=== PATIENT | male | born 1955 | race Caucasian/White ===

== ENCOUNTER 2023-11-05 06:27 | Observation (INO) ==
--- NOTE | 2023-10-08 12:58 | PAT Medication Instructions ---
Medication Instructions Date of Service October 08, 2023 Home Medications atorvastatin 20 mg tablet 20 mg PO QPM blood sugar diagnostic (LookTracker Ultra Test strips) pen needle, diabetic 31 gauge x 5/16" (BD Ultra-Fine Short Pen Needle) aspirin 81 mg tablet,delayed release (Adult Low Dose Aspirin) 81 mg PO QAM carvedilol 25 mg tablet 25 mg PO BID losartan 50 mg tablet 100 mg PO QAM metformin 1,000 mg tablet 1,000 mg PO BID glucagon 1 mg/0.2 mL subcutaneous auto-injector 1 mg subcut UD PRN insulin glargine 100 unit/mL (3 mL) subcutaneous pen (Lantus Solostar U-100 Insulin) 30 unit subcut BID dapagliflozin propanediol 5 mg tablet (Farxiga) 5 mg PO QAM insulin aspart U-100 100 unit/mL (3 mL) subcutaneous pen (Novolog FlexPen U-100 Insulin aspart) 12 unit subcut TID spironolactone 50 mg tablet (Aldactone) 50 mg PO QAM Continue as directed glucagon 1 mg/0.2 mL subcutaneous auto-injector 1 mg subcut UD PRN (if needed) STOP taking 3 days before surgery dapagliflozin propanediol 5 mg tablet (Farxiga) 5 mg PO QAM DO NOT take the morning of surgery losartan 50 mg tablet 100 mg PO QAM metformin 1,000 mg tablet 1,000 mg PO BID insulin aspart U-100 100 unit/mL (3 mL) subcutaneous pen (Novolog FlexPen U-100 Insulin aspart) 12 unit subcut TID spironolactone 50 mg tablet (Aldactone) 50 mg PO QAM Take morning of surgery With a small sip of water, OTHERWISE NOTHING TO EAT OR DRINK AFTER MIDNIGHT: aspirin 81 mg tablet,delayed release (Adult Low Dose Aspirin) 81 mg PO QAM (unless surgeon directed otherwise) carvedilol 25 mg tablet 25 mg PO BID Take evening before surgery atorvastatin 20 mg tablet 20 mg PO QPM carvedilol 25 mg tablet 25 mg PO BID metformin 1,000 mg tablet 1,000 mg PO BID insulin glargine 100 unit/mL (3 mL) subcutaneous pen (Lantus Solostar U-100 Insulin) 30 unit subcut BID insulin aspart U-100 100 unit/mL (3 mL) subcutaneous pen (Novolog FlexPen U-100 Insulin aspart) 12 unit subcut TID Insulin Dependent Diabetic Patients * Test your blood sugar the morning of surgery * If Blood Sugar is GREATER THAN 150, take HALF of your regular dose of: insulin glargine 100 unit/mL (3 mL) subcutaneous pen (Lantus Solostar U-100 Insulin) (15 units) * If Blood Sugar is LESS THAN 150, DO NOT TAKE ANY: insulin glargine 100 unit/mL (3 mL) subcutaneous pen (Lantus Solostar U-100 Insulin) Other Notes If you have any questions please call us at [phone] or [phone] or [phone] or [phone]
--- NOTE | 2023-10-13 11:54 | Anesthesiology Consultation ---
Date of Service October 13, 2023 Assessment & Plan (1) Encounter for pre-operative examination: - awaiting cardiology clearance. - Case discussed in detail with Dr. Livingston who advised cardiology clearance is needed prior to surgery. Surgeon's office made aware. - check BSG am DOS. To anesthesiologist discretion if testing needs repeated DOS. - cardiology office visit 09/24/23: "...carotid artery stenosis-left CEA on 07/15/23...hypertension...well controlled...Cr 1.6, pt reports following with nephrology...abnormal EKG-ST-T wave changes suggestive of ischemia on EKG...normal stress testing 04/2023...Return in about 1 year..." - Outpatient joint assessment: Patient is currently scheduled for inpatient pathway. If re-evaluated and patient/surgeon requests outpatient pathway, patient is not recommended candidate for outpatient joint program from anes thesia standpoint. Chart Review Chart Review: Pending: Refer to Additional Notes / Consult section and Patient seen in Pre Admission Testing Teaching & Discussion Pre-Anesthesia Teaching/Discussion Notes: Instructed NPO after midnight before surgery, except medications with 15 cc of water. Medication instructions provided according to the PAT guidelines. History Surgery Operation Date: 11/05/23 08:10 Proposed Procedures p Right Total Knee Arthroplasty - Raul Aguirre DO Height/Weight Height: 5 ft 11 in Weight: 88.3 kg Allergies Allergy/AdvReac Type Severity Reaction Status Date / Time amoxicillin Allergy Unknown Vomiting Verified 10/01/23 10:22 clavulanic acid Allergy Unknown Vomiting Verified 10/01/23 10:22 [From Augmentin] Medications Home Medications Medication Instructions Recorded Confirmed Last Taken atorvastatin 20 mg tablet 20 mg PO QPM 03/03/23 10/01/23 Unknown blood sugar diagnostic (OneTouch 03/03/23 09/30/23 Unknown Ultra Test strips) pen needle, diabetic 31 gauge x 03/03/23 09/30/23 Unknown 5/16" (BD Ultra-Fine Short Pen Needle) aspirin 81 mg tablet,delayed 81 mg PO QAM 03/05/23 10/01/23 Unknown release (Adult Low Dose Aspirin) carvedilol 25 mg tablet 25 mg PO BID 03/05/23 10/01/23 Unknown losartan 50 mg tablet 100 mg PO QAM 03/05/23 10/01/23 Unknown metformin 1,000 mg tablet 1,000 mg PO BID 04/18/23 10/01/23 Unknown blood-glucose sensor (FreeStyle 05/13/23 09/30/23 Unknown Darnell 3 Sensor device) glucagon 1 mg/0.2 mL subcutaneous 1 mg subcut UD PRN prn 05/13/23 10/01/23 Unknown auto-injector insulin glargine 100 unit/mL (3 30 unit subcut BID 05/13/23 10/01/23 Unknown mL) subcutaneous pen (Lantus Solostar U-100 Insulin) dapagliflozin propanediol 5 mg 5 mg PO QAM 10/01/23 10/01/23 Unknown tablet (Farxiga) insulin aspart U-100 100 unit/mL 12 unit subcut TID 10/01/23 10/01/23 Unknown (3 mL) subcutaneous pen (Novolog FlexPen U-100 Insulin aspart) spironolactone 50 mg tablet 50 mg PO QAM 10/01/23 10/01/23 Unknown (Aldactone) Past Medical History Medical History Carotid artery stenosis left carotid endarterectomy 07/2023 Chronic kidney disease, stage 3b follows with Dr Delaney last visit 09/2023 Diabetes mellitus, type 2 IDDM History of kidney stones lithotripsy and passed on own Hx of gastric ulcer yrs ago Hypercholesteremia Hypertension controlled, stable per pt Patient denies h/o stroke, seizures, heart attack, heart failure, blood clots/DVTs or blood transfusions. Exercise / Class Metabolic Activity II 4-5 Yardwork/Stairs/Walk up hill (denies chest discomfort or shortness of breath with 1 FOS) Past Family History Family History Aunt Diabetes Uncle Diabetes Past Surgical History Surgical History History of cardiac cath [facility] many years ago, unsure of date, no stents History of carotid endarterectomy 07/2023, Lopez Yousif History of kidney surgery lithotripsy Past Anesthesia History No Hx of Anesthesia Complications and No Family Hx of Anesthesia Complications History of PONV No Hx of PONV and No Hx of Motion Sickness Social History Smoking Status: Never smoker Do You Dip or Chew Tobacco: No Hx Alcohol Use: No Hx Substance Use: No substance use type: does not use Review of Systems Snoring, denies witnessed apneas. Patient denies chest pain, shortness of breath, dyspnea on exertion, fever, chills, cough, wheezing, or palpitations. Physical Exam Vital Signs Vitals BP 158/81 P 80 TEMP 98.1 SP02 95% on RA RESP 18 Physical Patient resting comfortably in chair in no acute distress, alert and oriented, responding appropriately throughout visit Full cervical extension range of motion without pain TMD < 3 finger breadths Mallampati Score 3 Dentition: edentulous, full upper and lower dentures Lungs: normal respiratory effort. Good air movement, clear throughout to auscultation, no adventitious breath sounds Cardiac: regular rate and rhythm, no murmurs noted Carotid arteries: negative bruit bilat Lab Results Anesthesia Preop Results Results Anesthesia Widget: WBC 12.00 K/ul (4.8-10.8) H 10/13/23 Hgb 13.0 g/dl (14.0-18.0) L 10/13/23 Hct 39.4 % (42.0-52.0) L 10/13/23 Plt 305 K/uL (130-400) 10/13/23 Na 138 mmol/L (136-145) 10/13/23 K 5.2 mmol/L (3.5-5.1) H 10/13/23 Cl 109 mmol/L (98-107) H 10/13/23 CO2 24 mmol/L (21-32) 10/13/23 BUN 29 mg/dl (6-23) H 10/13/23 Creat 1.74 mg/dl (0.6-1.4) H 10/13/23 Glucose Level 117 mg/dl (70-99(Fasting)) H 10/13/23 PT 11.3 Seconds (9.0-12.0) 10/13/23 PTT 28 Seconds (21-31) 10/13/23 INR 1.0 (0.9-1.1) 10/13/23 HA1c 7.4 % (4.5-5.6) H 10/13/23 Urine Color Yellow 10/13/23 Urine Appearance Clear (Clear) 10/13/23 Urine pH 5.0 (4.5-7.5) 10/13/23 Urine Specific [place] 1.022 (1.000-1.030) 10/13/23 Urine Protein Trace (Negative) H 10/13/23 Urine Glucose (UA) 3+ (Negative) H 10/13/23 Urine Ketones Negative (Negative) 10/13/23 Urine Blood Negative (Negative) 10/13/23 Urine Nitrite Negative (Negative) 10/13/23 Urine Bilirubin Negative (Negative) 10/13/23 Urine Urobilinogen Negative (Negative) 10/13/23 Urine Leukocyte Esterase Negative (Negative) 10/13/23 Urine WBC (Auto) 1-5 /hpf (0-5) 10/13/23 Urine RBC (Auto) 10-30 /hpf (0-4) H 10/13/23 Urine Hyaline Casts (Auto) 1-5 /lpf (0-5) 10/13/23 Urine Epithelial Cells (Auto) 0-5 /lpf (0-5) 10/13/23 Urine Bacteria (Auto) Negative (Negative) 10/13/23 Blood Type A Positive 10/13/23 Antibody Screen NEGATIVE 10/13/23 Testing Electrocardiogram Date: 10/13/23 NSR, rate [address] & T wave abnormality, consider anterolateral ischemia Chest X-Ray Date: 10/13/23 Borderline cardiomegaly. Otherwise, no acute process within the chest. Echocardiogram Date: 03/26/23 EF 55-60% Borderline LVH Mild tricuspid regurgitation Grade I diastolic dysfunction Stress Test Date: 04/21/23 Pharmacologic MPHR 58% Non-diagnostic Low probability of CAD EF 71% Other Testing Carotid doppler 03/26/23 Mild right carotid disease with less than 50% stenosis in the proximal ICA Left carotid disease with greater than 70% stenosis in the proximal ICA s/p left CEA 07/2023
--- NOTE | 2023-10-20 10:00 | History & Physical Report ---
Date of Service October 20, 2023 date of surgery: 11/05/23 Procedure: Right Total Knee Arthroplasty Surgeon: Raul Aguirre, DO Assessment & Plan (1) Arthritis of right knee: Plan: Further care discussed with patient and at this point in time has failed conserv ative measures and would like to proceed with a Right total knee replacement. Plan on discharge will be home with home health physical therapy. DVT prophylaxiswith TEDs, SCDs and will also place on aspirin 81 mg p.o. b.i.d. for a month postop. Patient will have follow up appointment in our office two weeks post op for staple/suture removal and re-evaluation. Patient otherwise has no other questions or concerns. The risks and benefits have been discussed including, but not limited to, risk of infection, nerve injury, stiffness, loss of motion, failure to improve, etc. Reasonable outcomes and options of treatment were discussed. An explanation of appropriate alternatives to the procedure that may be advantageous were discussed and their risks and benefits, as well as the risks and benefits of not proceeding with treatment. I offered to answer any additional inquiries concerning the treatment involved. All the patient's questions were answered. The patient is agreeable, understanding of the treatment plan and alternatives, and wishes to proceed with the treatment plan. Please note the above document was generated using voice recognition software. It may contain grammatical, syntax or spelling errors. Any formal questions or concerns about the content, text or information contained within the body of this dictation should be directly addressed to the provider for clarification History of Present Illness Chief Complaint: Right knee pain Primary Care Provider: Elisabet Stevenson PA-C Brennan is a 67-year-old male who presented for preop evaluation prior to upcoming right total knee arthroplasty. Brennan has a longstanding history of right knee pain which is gradually worsened and is now affecting his daily activities including walking standing using stairs. He had a previous right knee arthrosc opy in 2019, since that time undergone cortisone injection as well as viscosupplementation with no improvement. He has tried oral anti-inflammatories and Tylenol. At this point time is failed conservative measures and wishes to proceed with a right total knee replacement Allergies Allergy/AdvReac Type Severity Reaction Status Date / Time amoxicillin Allergy Unknown Vomiting Verified 10/01/23 10:22 clavulanic acid Allergy Unknown Vomiting Verified 10/01/23 10:22 [From Augmentin] Home Medications Medication Instructions Recorded Confirmed Type atorvastatin 20 mg tablet 20 mg PO QPM 03/03/23 10/01/23 History blood sugar diagnostic (OneTouch 03/03/23 09/30/23 History Ultra Test strips) pen needle, diabetic 31 gauge x 03/03/23 09/30/23 History 5/16" (BD Ultra-Fine Short Pen Needle) aspirin 81 mg tablet,delayed 81 mg PO QAM 03/05/23 10/01/23 History release (Adult Low Dose Aspirin) carvedilol 25 mg tablet 25 mg PO BID 03/05/23 10/01/23 History losartan 50 mg tablet 100 mg PO QAM 03/05/23 10/01/23 History metformin 1,000 mg tablet 1,000 mg PO BID 04/18/23 10/01/23 History blood-glucose sensor (FreeStyle 05/13/23 09/30/23 History Darnell 3 Sensor device) glucagon 1 mg/0.2 mL subcutaneous 1 mg subcut UD PRN prn 05/13/23 10/01/23 History auto-injector insulin glargine 100 unit/mL (3 30 unit subcut BID 05/13/23 10/01/23 History mL) subcutaneous pen (Lantus Solostar U-100 Insulin) dapagliflozin propanediol 5 mg 5 mg PO QAM 10/01/23 10/01/23 History tablet (Farxiga) insulin aspart U-100 100 unit/mL 12 unit subcut TID 10/01/23 10/01/23 History (3 mL) subcutaneous pen (Novolog FlexPen U-100 Insulin aspart) spironolactone 50 mg tablet 50 mg PO QAM 10/01/23 10/01/23 History (Aldactone) Past Med/Surg History Medical History Carotid artery stenosis left carotid endarterectomy 07/2023 Chronic kidney disease, stage 3b follows with Dr Delaney last visit 09/2023 History of kidney stones lithotripsy and passed on own Hx of gastric ulcer yrs ago Diabetes mellitus, type 2 IDDM Hypercholesteremia Hypertension controlled, stable per pt Surgical History History of carotid endarte[facility] 07[facility]2023, [facility] of [facility], no stents History of kidney surgery lithotripsy Family History Aunt Diabetes Uncle Diabetes Social History Smoking Status: Never smoker Second Hand Exposure: No; Do You Dip or Chew Tobacco: No; Hx Alcohol Use: No Hx Substance Use: No Preferred Language: Japanese Reading Teacher Required: No Beliefs That Will Affect Care: None marital status: Current Living Situation: Spouse Feels Safe at Home: Yes Assistive Devices: Denture - Upper, Denture - Lower and Glasses Review of Systems Review of Systems: All systems reviewed & are unremarkable except as noted in HPI & below Constitutional: no fever, no chills and no sweats Respiratory: no cough and no dyspnea Cardiovascular: no chest pain, no dyspnea and no orthopnea Gastrointestinal: no abdominal pain, no nausea and no vomiting Musculoskeletal: as per Subjective / HPI Physical Exam Physical Exam: HT: 5ft 11in WT: 88.3kg Constitutional: WD/WN, vitals as above no acute distress Respiratory: normal respiratory effort, lungs clear to auscultation no respiratory distress, no labored breathing and does not use accessory muscles Cardiovascular: RRR, no murmur, no edema Gastrointestinal (Abdomen): normal bowel sounds, soft, nontender, no hepatosplenomegaly Musculoskeletal: Knee: + knee abnormal to inspection (Right Knee: ), + effusion (+1 effusion), + surgical incision (well healed portals), + limited ROM of knee (ROM 0/3/110), + knee ROM with crepitation, + joint line tenderness (medial joint line) and + Ashley's sign positive; no deformity, no skin erythema, no ecchymosis, no valgus laxity, no varus laxity, anterior drawer test negative, Zarina's sign negative and pivot shift test negative Results & Data Results & Data Diagnostic Findings Right Knee X-ray: Right knee series showing advanced degenerative changes to the right knee, narrowing of the medial compartment and patello-femoral joint with patellar spur ring noted, findings showing joint space narrowing of the medial compartment and patello-femoral joint, osteophyte formation and subchondral sclerosis noted. overall varus alignment. no acute bony pathology noted.
[2023-11-05] MEDS ORDERED: BUPIVACAINE 0.5 % 5 MG/1 ML PF 10ML VIAL ONE (06:30)
[2023-11-05] MEDS ORDERED: ROPIVACAINE 0.5% 5 MG/ML 30 ML VIAL ONE (06:30)
[2023-11-05] MEDS ORDERED: PROPOFOL IV EMULSION 10 MG/ML 20 ML VIAL IV ONE (06:42)
[2023-11-05] MEDS ORDERED: MIDAZOLAM HCL 1 MG/ML 2ML VIAL ONE (06:42)
[2023-11-05] MEDS ORDERED: ePHEDrine sulfate 50 MG/ML AMP IV PRN (07:03)
[2023-11-05] MEDS ORDERED: ATROPINE SULFATE 0.1 MG/ML 10ML SYR IV PRN (07:03)
[2023-11-05] MEDS ORDERED: ONDANSETRON INJ 2 MG/ML 2 ML VIAL IV PRN ×2 (07:03→11:27)
[2023-11-05] MEDS ORDERED: fentaNYL citrate PF 100 MCG/2 ML VIAL IV PRN (07:03)
[2023-11-05] MEDS ORDERED: HYDROmorphone INJ 1 MG/ML SYRINGE IV PRN ×2 (07:03→11:27)
--- NOTE | 2023-11-05 07:17 | History & Physical Bridge Note ---
Date of Service November 05, 2023 History & Physical Bridge Note I have examined the patient, reviewed the History & Physical and in the interval since the performance of the History & Physical I have noted the following changes of clinical significance: no changes noted
[2023-11-05] MEDS: LR 500ML BOLUS, THEN 15ML/HR IV SCH (07:30)
[2023-11-05] MEDS: GABAPENTIN 300 MG CAP PO SCH (07:30)
[2023-11-05] MEDS: METOCLOPRAMIDE HCL 10 MG TABLET PO SCH (07:31)
[2023-11-05] MEDS: ACETAMINOPHEN 500 MG TAB PO SCH ×2 (07:31→13:36)
[2023-11-05] MEDS: LR 60ML/HR IV SCH (07:31)
[2023-11-05] MEDS: FAMOTIDINE 20 MG TAB PO SCH (07:31)
[2023-11-05] MEDS: CeleBREX 200 MG CAP PO SCH (07:31)
[2023-11-05] MEDS: dexAMETHasone**PF** 10 MG/ML VIAL IV SCH (07:31)
[2023-11-05] MEDS: TRANEXAMIC ACID / 0.7% NACL 1000MG/100ML BAG IV ONE (07:32)
[2023-11-05] MEDS: TRANEXAMIC ACID 1,000 MG **IV Pre-op IV SCH (08:40)
[2023-11-05] MEDS ORDERED: fentaNYL citrate PF 100 MCG/2 ML VIAL ONE (08:57)
[2023-11-05] MEDS: ceFAZolin 2000MG 2,000 MG/15 ML SYR IV SCH (09:00)
[2023-11-05] MEDS: ROPIV 0.5% 246mg, Ketorolac 30mg, EPINEPHrine 0.5mg in NSS INFIL SCH (09:17)
[2023-11-05] MEDS: ORTHO JOINT ANESTHETIC ONE (09:17)
--- NOTE | 2023-11-05 09:58 | Operative Report ---
Post Operative Report Pre & Post Diagnosis Operation Date: 11/05/23 08:10 Pre-Op Diagnosis: Right Knee Osteoarthritis Post-Op Diagnosis: Right Knee Osteoarthritis I identified the patient and participated in the time-out.: Yes Procedure Operation Date: 11/05/23 08:10 Actual Procedures p Right Total Knee Arthroplasty(Right) Utilizing [employer] journey 2 patient-matched total knee arthroplasty size femur 4 tibia 4 poly 11 patella 32 charly- Raul Aguirre DO Surgeon Raul Aguirre DO [employer] MARTELL Estimated Blood Loss 5 Findings Consistent with Post-Op Diagnosis Patient presents with severe end-stage tricompartmental DJD of the right knee varus alignment subchondral so sclerosis eburnated [id number] nonresponsive to conversion to conservative management Specimens Bone and cartilage Drains Medium bore Hemovac Complications none Disposition Accompanied Patient To Recovery: No Disposition: Recovery Room Indications Patient presents with severe end-stage DJD having failed attempted conservative management occluding physical therapy anti-inflammatories relative rest activity modification corticosteroid injection viscosupplementation above intraoperative findings were noted Description of Procedure After proper prepping and draping of the Right lower extremity anterior midline incision was made over the region of the extensor extensor mechanism after meticulous hemostasis was obtained and maintained in subcutaneous tissues a medial parapatellar incision was made The patella was subluxed lateralward the medial lateral gutter were cleaned from any hypertrophic synovitis and scar tissue of the distal femoral block was placed and the distal femoral osteotomy cut was made subsequently the chamfers anterior and posterior osteotomy cuts were made utilizing the 4-in-1 block the tibia was subsequently subluxed anteriorward medial and ateral meniscal remnants were excised in their entirety remnants of the anterior and posterior cruciate ligaments were excised in their entirety excellent exposure of the proximal tibia was obtained the tibial osteotomy guide was placed on the proximal tibial osteotomy cut was made once again the knee was irrigated with copious amounts of sterile saline solution the patella was subsequently everted lateralward thickened scar tissue around the patella was removed the patella was subsequently cut utilizing a freehand technique and was drilled prepared for final preparation and placement of patella socially flexion-extension gaps were checked and the equal and symmetric trials were placed to the appropriate femoral and tibial trials with poly-spacer being placed for equal flexion and extension gaps and full range of motion including extension to 0 and flexion to 140 the trial components after having been taken to recovery range of motion was subsequently removed meticulous hemostasis was obtained and maintained subsequently a knee block injection of joint cocktail including ropivacaine 0.5% 150 mg. Bupivacaine 0.5% epinephrine 1-200,030 mL's toradol 30 mg dexamethasone 4 mg ketamine 10 mg clonidine 100 micrograms normal saline solution 30 mg was infiltrated into the soft tissues of the posterior knee medial lateral gutters and periosteal synovium special attention was paid to protect neurovascular structures at all times subsequently trial components having been removed the knee was irrigated with sterile saline solution. debris was removed the proximal tibia was subsequently prepared and was made ready for the placement of the tibial component tibial component was also cemented and tamped into position the femoral component was subsequently placed and cemented in the position the patellar component was subsequently cemented in position because hemostasis once again obtained and maintained wound having been thoroughly irrigated with debridement and debridement lavage was performed as well as a medial parapatellar incision closed with #1 Vicryl in interrupted fashion subcutaneous was closed with #2 Vicryl skin was closed with skin clips. PA-C was necessary for prepping and drapping as well as wound closure of deep fascia Sub cutaneous tissue and skin and was necessary for the case. A sterile compressive dressing was placed patient was taken to recovery in stable condition of report dictated by Timothy I attest to the content of the Intraoperative Record and any orders documented therein. Any exceptions are noted below.Due to the complex nature of the procedure, the entire surgery was performed with the operational assistance of JAYSHREE Nelson . The administrative support assistant, under direct supervision, was involved in the actual performance of all aspects of the surgical procedure including hemostasis, tissue retraction and incision, instrument management, patient positioning, and wound closure. I attest to the content of the Intraoperative Record and any orders documented therein. Any exceptions are noted below.
--- NOTE | 2023-11-05 10:58 | XRay Report ---
XR knee RT 1 or 2V routine HISTORY: 67 years-old Male Surgical Post Op right knee arthroplasty COMPARISON: None TECHNIQUE: 2 views of the right knee FINDINGS: Total joint arthroplasty with patellar resurfacing. Surgical drainage catheter in place. Expected pos toperative soft tissue swelling with deep tissue air. Arterial calcifications. No acute fracture or d islocation. IMPRESSION: Total joint arthroplasty with expected postoperative changes. ACT 112: Negative or not required by law. The above report was generated using voice recognition software. It may contain grammatical, syntax o r spelling errors. Electronically signed by: Logan Khan M.D. 11/05/2023 10:57 AM
[2023-11-05] MEDS ORDERED: PHARMACY GLYCEMIC MGMT CONSULT PRN (11:27)
[2023-11-05] MEDS ORDERED: METOCLOPRAMIDE HCL INJ 5 MG/ML 2 ML VIAL IV PRN (11:27)
[2023-11-05] MEDS ORDERED: bisacodyL 10 MG SUPP PR PRN (11:27)
[2023-11-05] MEDS ORDERED: NALOXONE HCL 0.4 MG/1 ML VIAL/CARP IV PRN (11:27)
[2023-11-05] MEDS ORDERED: MAGNESIUM HYDROXIDE SUSP 30 ML UDC PO PRN (11:27)
[2023-11-05] MEDS ORDERED: diphenhydrAMINE Capsule 25 MG CAP PO PRN (11:27)
[2023-11-05] MEDS: TRANEXAMIC ACID 1,000 MG **IV Intra-op IV SCH (11:35)
--- NOTE | 2023-11-05 11:53 | Hospitalist Consultation ---
Date of Consultation November 05, 2023 Assessment & Plan (1) Status post right knee replacement: VTE / Pain / bowel management per primary orthopedic team (2) History of carotid endarterectomy: s/p CEA [07/26/2023], restart aspirin when ok from orthopedics Continue atorvastatin (3) Chronic kidney disease, stage 3b: Follows with nephrology, hyperkalemia on post operative labs I do not see this being addressed therefore will repeat labs today to determine if spironolactone needs to be discontinued or any other active treatment is needed. (4) Hypertension: Continue carvedilol Continue losartan with hold parameters is sBP < 100 Repeat labs to determine need for continuing/holding spironolactone (5) Type 2 diabetes mellitus: HbA1C 7.4 [10/12], no need to repeat Pharmacy has been consulted by primary team for glycemic control, will follow Ok to continue Farxiga and metformin from medical perspective Notably taking Farxiga every other day due to cost - advised this will likely lead to fluctuant glucose levels and he should discuss more with his diabetes team (6) Hyperkalemia: Noted on outpatient labs pre-operatively with no adjustment in medications per patient. He did not take his spironolactone this morning. Repeat pending. History of Present Illness Reason for Consultation: post op management, h/o DM, CKD stage 3, HTN Attending Physician: Raul Aguirre, History of Present Illness Brennan Dwyer is a 67 year old male who presents POD#0 with a right total knee arthroplasty performed by Dr Aguirre earlier today. Estimated blood loss 5ml. No complications noted on operative report. He denies any current concerns or questions. Medications reviewed with the patient. He did not take spironolactone this morning as following pre-operative instructions but no changes made after recent potassium level was high on pre-operative labs on October 12. He also notes only taking Farxiga every other day due to expense. He is not yet dorsi/plantarflexing his ankles post operatively. Allergies Allergy/AdvReac Type Severity Reaction Status Date / Time amoxicillin Allergy Unknown Vomiting Verified 11/05/23 07:14 clavulanic acid Allergy Unknown Vomiting Verified 11/05/23 07:14 [From Augmentin] Home Medications Medication Instructions Recorded Confirmed Type atorvastatin 20 mg tablet 20 mg PO QPM 03/03/23 11/05/23 History blood sugar diagnostic (OneTouch 03/03/23 09/30/23 History Ultra Test strips) pen needle, diabetic 31 gauge x 03/03/23 09/30/23 History 5/16" (BD Ultra-Fine Short Pen Needle) aspirin 81 mg tablet,delayed 81 mg PO QAM 03/05/23 11/05/23 History release (Adult Low Dose Aspirin) carvedilol 25 mg tablet 25 mg PO BID 03/05/23 11/05/23 History losartan 50 mg tablet 100 mg PO QAM 03/05/23 11/05/23 History metformin 1,000 mg tablet 1,000 mg PO BID 04/18/23 11/05/23 History blood-glucose sensor (FreeStyle 05/13/23 09/30/23 History Darnell 3 Sensor device) glucagon 1 mg/0.2 mL subcutaneous 1 mg subcut UD PRN prn 05/13/23 11/05/23 History auto-injector insulin glargine 100 unit/mL (3 20 - 25 unit subcut BID 05/13/23 11/05/23 History mL) subcutaneous pen (Lantus Solostar U-100 Insulin) dapagliflozin propanediol 5 mg 5 mg PO QAM 10/01/23 11/05/23 History tablet (Farxiga) insulin aspart U-100 100 unit/mL 12 unit subcut TID 10/01/23 11/05/23 History (3 mL) subcutaneous pen (Novolog FlexPen U-100 Insulin aspart) spironolactone 50 mg tablet 50 mg PO QAM 10/01/23 11/05/23 History (Aldactone) Patient History Medical History (Updated 11/05/23 @ 11:41 by Pérez Obando MD) Carotid artery stenosis left carotid endarterectomy 07/2023 Chronic kidney disease, stage 3b follows with Dr Delaney last visit 09/2023 History of kidney stones lithotripsy and passed on own Hx of gastric ulcer yrs ago Diabetes mellitus, type 2 IDDM Hypercholesteremia Hypertension controlled, stable per pt Surgical History (Updated 11/05/23 @ 11:44 by Pérez Obando MD) History of carotid endarterectomy 07/2023, Lopez Yousif History of cardiac cath [facility] many years ago, unsure of date, no stents History of kidney surgery lithotripsy Family History Aunt Diabetes Uncle Diabetes Social History Smoking Status: Never smoker Second Hand Exposure: No; Do You Dip or Chew Tobacco: No; Tobacco Cessation Education Requested by Patient: No Hx Alcohol Use: No Hx Substance Use: No Preferred Language: British Tapper Balance Wheel Screw Hole Required: No Beliefs That Will Affect Care: None marital status: Current Living Situation: Spouse Other Information That Helps Us Care for You: No Feels Safe at Home: Yes Safety Concerns: Feels Safe At This Time Assistive Devices: Denture - Upper, Denture - Lower and Glasses Review of Systems Review of Systems: All systems reviewed & are unremarkable except as noted in HPI & below Physical Exam Constitutional: WD/WN, vitals as above Respiratory: normal respiratory effort, lungs clear to auscultation Cardiovascular: RRR, no murmur, no edema Gastrointestinal (Abdomen): normal bowel sounds, soft, nontender, no hepatosplenomegaly Neurologic: awake; + does not move all extremities (no ankle dorsi/plantarflexion b/l with normal foot sensation) and not confused Psychiatric: A+Ox3, euthymic affect Results & Data Results & Data Vital Signs (Past 12 Hours) Vital Signs Temp Pulse Pulse Resp BP Pulse Ox O2 Del Method 11/05/23 11:20 36.5 C 62 17 131/68 97 Room Air 11/05/23 11:05 36.4 C L 64 20 126/55 L 95 Room Air 11/05/23 10:55 64 20 127/57 L 97 Room Air 11/05/23 10:45 67 18 129/52 L 97 Oxymask 11/05/23 10:35 66 19 128/50 L 99 Oxymask 11/05/23 10:25 36.1 C L 75 20 100/40 L 92 Oxymask 11/05/23 07:01 36.9 C 73 18 155/84 H 98 Room Air O2 Flow Rate 11/05/23 11:20 11/05/23 11:05 11/05/23 10:55 11/05/23 10:45 2 11/05/23 10:35 4 11/05/23 10:25 6 11/05/23 07:01 PG Care Time/CCT Total # of Minutes Spent Total Time Spent with Patient: Total time spent is greater than 50% in coordination of care (as documented) at patient's floor/unit and/or counseling patient: Coding Level of Care Code 30947 IN/OBS CONSULT LVL 5,80M Diagnoses Status post right knee replacement Z96.651 History of carotid endarterectomy Z98.890 Chronic kidney disease, stage 3b N18.32 Hypertension I10 Type 2 diabetes mellitus E11.9 Hyperkalemia E87.5
[2023-11-05 11:57] LABS: Hematocrit (blood only) 36.3 % (42.0-52.0); Hemoglobin 12.4 g/dl (14.0-18.0); Mean Corpuscular Hemoglobin 32.1 pg (25.0-34.0); Mean Corpuscular Hgb Conc 34.2 g/dL (32.0-36.0); Mean Platelet Volume 10.3 fL (9.4-12.4); Platelet Count 291 K/uL (130-400); RDW Coefficient of Variation 13.2 % (11.5-14.5); RDW Standard Deviation 45.4 fL (36.4-46.3); Red Blood Count 3.86 M/uL (4.70-6.10)
[2023-11-05] MEDS ORDERED: GLUCOSE 10 TAB/TUBE PO PRN (12:00)
[2023-11-05] MEDS ORDERED: CARBOHYDRATES FOR HYPOGLYCEMIA PO PRN (12:00)
[2023-11-05] MEDS ORDERED: GLUCAGON FOR INJ 1 MG VIAL IM PRN (12:00)
[2023-11-05] MEDS ORDERED: DEXTROSE 50% 50 ML SYRINGE IV PRN (12:00)
[2023-11-05] MEDS ORDERED: GLUCOSE 40% GEL 15 GM TUBE PO PRN (12:00)
--- NOTE | 2023-11-05 12:10 | Pharmacy Report ---
Pharmacy Glycemic Short Note 2 - Date of Service November 05, 2023 - Glycemic Short BSG Results (Last 24 hours): 11/05/23 11/05/23 11/05/23 06:54 10:28 11:39 POC Glucose 170 H 197 H 237 H OUTPATIENT ANTIDIABETIC REGIMEN: * Lantus 25 units Qam and 20 units Qpm, novolog 16 units tidm, metformin 1 gm bid, farxiga 5 mg qam ASSESSMENT: * 67 year old now s/p surgery, POD 0 - pharmacy consulted to assist with glyce liana management. Postop BSGs > 200 - confirmed with RN that patient did not take any basal insulin yet this AM. Last dose of basal insulin was last evening (20 units). * Anticipate BSGs to continue to rise as steroids also given preoperative. K level came back elevated - provider ordering IV insulin for hyperkalemia/d50. Provider would like to hold all insulin for now. Will reassess at dinner, lázaro ent will need basal insulin ordered as none received yet today. PLAN FOR INPATIENT GLYCEMIC CONTROL: * Hold outpatient oral diabetes medications * Basal insulin * Lantus 35-45 units with dinner * Bolus insulin * NovoLog per scale ACHS or Q6hrs while NPO * Goal Range: Low 110 mg/dL - High 140 mg/dL * Correction Factor: 15 mg/dL/unit * Nutritional / Prandial insulin per carb ratio of 1 unit per 5 grams CHO consumed
[2023-11-05 12:20] LABS: Basophils # (auto) 0.03 K/uL (0.00-0.20); Basophils % (auto) 0.2 %; Eosinophils # (auto) 0.05 K/uL (0.00-0.50); Eosinophils % (auto) 0.3 %; Immature Granulocytes # (auto) 0.05 K/uL (0.01-0.20); Immature Granulocytes % (auto) 0.3 %; Lymphocytes # (auto) 0.61 K/uL (1.20-3.40); Lymphocytes % (auto) 3.8 %; Monocytes # (auto) 0.22 K/uL (0.11-0.59); Monocytes % (auto) 1.4 %; Neutrophils # (auto) 15.04 K/uL (1.40-6.50); Toxic Vacuolation 1+
[2023-11-05] MEDS: SODIUM CHLORIDE 0.9% 1,000 ML IV SCH (12:34)
[2023-11-05] MEDS: INSULIN ASPART PER UNIT CHARGE SC SCH (12:35)
[2023-11-05 12:39] LABS: BUN Creatinine Ratio 13.3 (10-20); Calcium 8.6 mg/dl (8.6-10.3); Creatinine Clr Calc Pharmacy 37.9 ml/min; Est GFR (African American) 39.3 ml/min; Est GFR (Non-African American) 33.9 ml/min; Potassium 6.9 mmol/L (3.5-5.1)
[2023-11-05] MEDS ORDERED: STAT IV/IM STA (12:40)
[2023-11-05] MEDS: CALCIUM GLUCONATE 10% 1,000 MG in SODIUM CHLOR 0.9% MINI-B 50 ML IV ONE (13:16)
[2023-11-05] MEDS: INSULIN HUMAN REGULAR PER UNIT 10 UNITS in SYRINGE 9.9 ML IV STA (13:27)
[2023-11-05] MEDS: DEXTROSE 50% 50 ML SYRINGE IV STA (13:27)
[2023-11-05] MEDS: LACTATED RINGER'S 1,000 ML IV SCH (14:49)
[2023-11-05] MEDS: SODIUM ZIRCONIUM CYCLOSILICATE 10 GM PACKET PO SCH (15:25)
[2023-11-05] MEDS: LANTUS PER UNIT CHARGE SQ STA (15:25)
[2023-11-05] MEDS: CLINDAMYCIN/D5W 600 MG/50 ML BAG IV SCH (15:25)
--- NOTE | 2023-11-05 16:03 | Anesthesiology Progress Note ---
Date of Service November 05, 2023 Anesthesia Post Procedure Vital Signs Vital Signs: Temp Pulse Pulse Resp BP Pulse Ox O2 Del Method 11/05/23 14:43 36.4 C L 73 19 165/77 H 97 Room Air 11/05/23 13:31 36.5 C 65 17 151/75 H 97 Room Air 11/05/23 12:20 36.5 C 66 16 165/75 H 98 Room Air 11/05/23 11:50 36.6 C 66 16 148/66 H 96 Room Air 11/05/23 11:20 36.5 C 62 17 131/68 97 Room Air 11/05/23 11:05 36.4 C L 64 20 126/55 L 95 Room Air 11/05/23 10:55 64 20 127/57 L 97 Room Air 11/05/23 10:45 67 18 129/52 L 97 Oxymask 11/05/23 10:35 66 19 128/50 L 99 Oxymask 11/05/23 10:25 36.1 C L 75 20 100/40 L 92 Oxymask 11/05/23 07:01 36.9 C 73 18 155/84 H 98 Room Air O2 Flow Rate 11/05/23 14:43 11/05/23 13:31 11/05/23 12:20 11/05/23 11:50 11/05/23 11:20 11/05/23 11:05 11/05/23 10:55 11/05/23 10:45 2 11/05/23 10:35 4 11/05/23 10:25 6 11/05/23 07:01 Transfer of Care Handoff Completed per policy Notes Mental Status: alert / awake / arousable and participated in evaluation Patient Amnestic to Procedure: Yes Nausea / Vomiting: adequately controlled Pain: adequately controlled Airway Patency, RR, SpO2: stable & adequate BP & HR: stable & adequate Hydration State: stable & adequate Neuraxial Anesthesia: was administered and sensory block is resolving Anesthetic Complications: no major complications apparent and Pt Satisfied with anesthetic care
[2023-11-05 16:45] LABS: BUN Creatinine Ratio 15.1 (10-20); Calcium 8.4 mg/dl (8.6-10.3); Creatinine Clr Calc Pharmacy 34.1 ml/min; Est GFR (African American) 34.5 ml/min; Est GFR (Non-African American) 29.8 ml/min; Magnesium 1.6 mg/dl (1.7-2.4); Potassium 6.5 mmol/L (3.5-5.1)
[2023-11-05] MEDS: oxyCODONE HCL IR 5 MG TAB (IMMEDIATE RELEASE) PO PRN (16:48)
[2023-11-05] MEDS: carvediloL 25 MG TAB PO SCH (16:53)
[2023-11-05] MEDS: INSULIN HUMAN REGULAR PER UNIT 10 UNITS in SYRINGE 9.9 ML IV ONE (17:34)
[2023-11-05 20:28] LABS: BUN Creatinine Ratio 15.3 (10-20); Calcium 8.8 mg/dl (8.6-10.3); Creatinine Clr Calc Pharmacy 32.4 ml/min; Est GFR (African American) 32.5 ml/min; Est GFR (Non-African American) 28.1 ml/min; Potassium 5.9 mmol/L (3.5-5.1)
[2023-11-05] MEDS: LACTATED RINGER'S 1,000 ML IV ONE (21:09)
[2023-11-05] MEDS: SENNA 8.6 MG TAB PO SCH (21:11)
[2023-11-05] MEDS: ASPIRIN 81 MG ECTAB PO SCH (21:11)
[2023-11-05] MEDS: ATORVASTATIN 20 MG TAB PO SCH (21:11)
[2023-11-05] MEDS: DOCUSATE SODIUM 100 MG CAP PO SCH (21:12)
[2023-11-05] MEDS: LANTUS PER UNIT CHARGE SQ ONE (21:21)
[2023-11-05 23:55] LABS: Appearance Urine Clear (Clear); Bilirubin Urine Negative (Negative); Blood Urine Negative (Negative); Color Urine Yellow; Glucose Urine UA 3+ (Negative); Ketones Urine Negative (Negative); Leukocyte Esterase Urine Negative (Negative); Nitrite Urine Negative (Negative); Protein Urine Negative (Negative); Specific Gravity Urine 1.021 (1.000-1.030); Urobilinogen Urine Negative (Negative)
[2023-11-06] MEDS: INSULIN ASPART PER UNIT CHARGE SC SCH (00:02)
[2023-11-06 00:52] LABS: BUN Creatinine Ratio 16.6 (10-20); Calcium 8.2 mg/dl (8.6-10.3); Creatinine Clr Calc Pharmacy 34.2 ml/min; Est GFR (African American) 34.7 ml/min; Potassium 5.6 mmol/L (3.5-5.1)
[2023-11-06 05:04] LABS: BUN Creatinine Ratio 18.2 (10-20); Calcium 8.3 mg/dl (8.6-10.3); Creatinine Clr Calc Pharmacy 34.7 ml/min; Est GFR (African American) 35.3 ml/min; Est GFR (Non-African American) 30.5 ml/min; Potassium 5.4 mmol/L (3.5-5.1)
[2023-11-06 05:21] LABS: Hematocrit (blood only) 35.4 % (42.0-52.0); Hemoglobin 11.7 g/dl (14.0-18.0); Mean Corpuscular Hemoglobin 31.5 pg (25.0-34.0); Mean Corpuscular Hgb Conc 33.1 g/dL (32.0-36.0); Mean Corpuscular Volume 95.2 fL (80.0-100.0); Platelet Count 277 K/uL (130-400); RDW Coefficient of Variation 13.1 % (11.5-14.5); RDW Standard Deviation 45.1 fL (36.4-46.3); Red Blood Count 3.72 M/uL (4.70-6.10); White Blood Count 29.07 K/ul (4.8-10.8)
--- NOTE | 2023-11-06 07:05 | Orthopedic Progress Note ---
Date of Service November 06, 2023 Assessment & Plan (1) Status post right knee replacement: Plan: POD #1 s/p Right TKA pt/ot dvt proph with MICHOACANO/SCD/ASA Hyperkalemia- am labs showing 5.4, has continued to improve since post op labs yesterday afternoon. will await medical input for further treatment. we will have him do PT this am and see how he performs and will make determination for timing of discharge after evaluation by medical team. (2) Hyperkalemia: (3) Chronic kidney disease, stage 3b: (4) Hypertension: (5) Type 2 diabetes mellitus: Admission and Anticipated Discharge Date Admission Date: November 05, 2023 Subjective POD #1 s/p Right TKA patient seen in PCU due to elevated potassium, this has continued to improve over the last 16 hours Review of Systems Constitutional: no fever, no chills and no sweats Respiratory: no cough and no dyspnea Cardiovascular: no chest pain and no dyspnea Gastrointestinal: no abdominal pain, no nausea and no vomiting Physical Exam Physical Exam: Vital Signs Temp 36.7 C 11/06/23 03:52 Pulse 69 11/06/23 03:52 Resp 17 11/06/23 03:52 BP 153/73 H 11/06/23 03:52 Pulse Ox 97 11/06/23 03:52 O2 Del Method Room Air 11/06/23 03:52 O2 Flow Rate 2 11/05/23 10:45 Intake & Output 11/05/23 11/06/23 11/06/23 18:59 06:59 18:59 Intake Total 1490 / 3866.666 2376.666 / 3866.66 6 Output Total 45 / 605 560 / 605 Balance 1445 / 3261.666 1816.666 / 3261.66 6 Weight 88.3 kg Intake: IV 290 / 2116.666 1826.666 / 2116.66 6 Calcium Glucon ate 10% 1,000 mg 60 / 60 In Sodium Chlo r 0.9% Mini-B 50 ml @ 240 mls/h r IV NOW ONE Rx#: [id number] Clindamycin/D5 w 600 mg In 50 ml 50 / 100 50 / 100 @ 100 mls/hr I V Q8H [facility] Rx#: [id number] Lactated Ringe r's 1,000 ml @ 0 / 5674.834 3563.666 / 1776.66 6 100 mls/hr IV .Q10H [facility] Rx#: [id number] Sodium Chlorid e 0.9% 1,000 ml @ 80 / 80 100 mls/hr IV .Q10H [facility] Rx#: [id number] Tranexamic Aci d / 0.7% NaCl 1, 100 / 100 000 mg In 100 ml @ 600 mls/hr IV TODAY@0600 [facility] Rx#:[id number] IV Perioperative 1000 / 1000 Oral 200 / 750 550 / 750 Output: Urine 410 / 410 Estimated Blood Loss 5 / 5 Drain Output 40 / 190 150 / 190 Right Knee Hem ovac 40 / 190 150 / 190 Other: Weight Measureme nt Method Standing Scale Musculoskeletal: Right Leg: NVDI, calf SNT, negative merrick sign. DP palpable, able to wiggle toes/ankle movement without difficulty. dressing clean dry and intact. Results & Data Vital Signs (Past 12 Hours) Vital Signs Temp Pulse Pulse Resp BP Pulse Ox O2 Del Method 11/06/23 03:52 36.7 C 69 17 153/73 H 97 Room Air 11/06/23 00:00 62 11/05/23 23:22 36.5 C 65 18 140/65 96 Room Air 11/05/23 19:19 36.6 C 55 L 17 151/74 H 97 Room Air Laboratory Results Laboratory Results WBC 29.07 K/ul (4.8-10.8) H D 11/06/23 04:14 RBC 3.72 M/uL (4.70-6.10) L 11/06/23 04:14 Hgb 11.7 g/dl (14.0-18.0) L 11/06/23 04:14 Hct 35.4 % (42.0-52.0) L 11/06/23 04:14 MCV 95.2 fL (80.0-100.0) 11/06/23 04:14 MCH 31.5 pg (25.0-34.0) 11/06/23 04:14 MCHC 33.1 g/dL (32.0-36.0) 11/06/23 04:14 RDW Std Deviation 45.1 fL (36.4-46.3) 11/06/23 04:14 RDW Coeff of Flavia 13.1 % (11.5-14.5) 11/06/23 04:14 Plt Count 277 K/uL (130-400) 11/06/23 04:14 MPV 11.0 fL (9.4-12.4) 11/06/23 04:14 Immature Gran % (Auto) 0.3 % 11/05/23 11:43 Neut % (Auto) 94.0 % 11/05/23 11:43 Lymph % (Auto) 3.8 % 11/05/23 11:43 Waldo % (Auto) 1.4 % 11/05/23 11:43 Eos % (Auto) 0.3 % 11/05/23 11:43 Baso % (Auto) 0.2 % 11/05/23 11:43 Neut # (Auto) 15.04 K/uL (1.40-6.50) H 11/05/23 11:43 Lymph # (Auto) 0.61 K/uL (1.20-3.40) L 11/05/23 11:43 Waldo # (Auto) 0.22 K/uL (0.11-0.59) 11/05/23 11:43 Eos # (Auto) 0.05 K/uL (0.00-0.50) 11/05/23 11:43 Baso # (Auto) 0.03 K/uL (0.00-0.20) 11/05/23 11:43 Immature Gran # (Auto) 0.05 K/uL (0.01-0.20) 11/05/23 11:43 Toxic Vacuolation 1+ 11/05/23 11:43 Sodium 132 mmol/L (136-145) L 11/06/23 04:14 Potassium 5.4 mmol/L (3.5-5.1) H 11/06/23 04:14 Chloride 106 mmol/L (98-107) 11/06/23 04:14 Carbon Dioxide 20 mmol/L (21-32) L 11/06/23 04:14 Anion Gap 6 (3-11) 11/06/23 04:14 BUN 39 mg/dl (6-23) H 11/06/23 04:14 Creatinine 2.14 mg/dl (0.6-1.4) H 11/06/23 04:14 Est Cr Clr Drug Dosing 34.7 ml/min 11/06/23 04:14 Est GFR ( Amer) 35.3 ml/min 11/06/23 04:14 Est GFR (Non-Af Amer) 30.5 ml/min 11/06/23 04:14 BUN/Creatinine Ratio 18.2 (10-20) 11/06/23 04:14 Glucose 248 mg/dl (70-99(Fasting)) H 11/06/23 04:14 POC Glucose 256 mg/dl (70-99) H 11/06/23 03:56 Calcium 8.3 mg/dl (8.6-10.3) L 11/06/23 04:14 Magnesium 1.6 mg/dl (1.7-2.4) L 11/05/23 15:41 Urine Color Yellow 11/05/23 23:45 Urine Appearance Clear (Clear) 11/05/23 23:45 Urine pH 5.0 (4.5-7.5) 11/05/23 23:45 Ur Specific [place] 1.021 (1.000-1.030) 11/05/23 23:45 Urine Protein Negative (Negative) 11/05/23 23:45 Urine Glucose (UA) 3+ (Negative) H 11/05/23 23:45 Urine Ketones Negative (Negative) 11/05/23 23:45 Urine Blood Negative (Negative) 11/05/23 23:45 Urine Nitrite Negative (Negative) 11/05/23 23:45 Urine Bilirubin Negative (Negative) 11/05/23 23:45 Urine Urobilinogen Negative (Negative) 11/05/23 23:45 Ur Leukocyte Esterase Negative (Negative) 11/05/23 23:45 Impressions Knee X-Ray 11/05/23 09:20 XR knee RT 1 or 2V routine HISTORY: 67 years-old Male Surgical Post Op right knee arthroplasty COMPARISON: None TECHNIQUE: 2 views of the right knee FINDINGS: Total joint arthroplasty with patellar resurfacing. Surgical drainage catheter in place. Expected postoperative soft tissue swelling with deep tissue air. Arterial calcifications. No acute fracture or dislocation. IMPRESSION: Total joint arthroplasty with expected postoperative changes. ACT 112: Negative or not required by law. The above report was generated using voice recognition software. It may contain grammatical, syntax or spelling errors. Electronically signed by: Logan Khan M.D. 11/05/2023 10:57 AM
[2023-11-06] MEDS ORDERED: NON-FORMULARY MEDICATION (Dapagliflozin Propanediol [Farxiga] 5 mg tablet) PO SCH (09:00)
[2023-11-06] MEDS ORDERED: LOSARTAN POTASSIUM 50 MG TAB PO SCH (09:00)
[2023-11-06] MEDS: LANTUS PER UNIT CHARGE SQ SCH (09:06)
[2023-11-06] MEDS: MULTIVITAMIN TAB PO SCH (10:52)
--- NOTE | 2023-11-06 11:21 | Nephrology Consultation ---
Date of Consultation November 06, 2023 Assessment & Plan (1) Acute kidney injury: * LANRE likely related to hemodynamic changes in the setting of NSAID and ARB therapy * Ketorolac and Losartan have been stopped * Patient is nonoliguric. Urine sediment is negative for cellular casts * Continue supportive care. Monitor PRP (2) Chronic kidney disease, stage 3b: * CKD stage G3b/A2 (moderate impairment). Baseline Cr 1.6-1.9 w/ EGFR 30 cc/min. Outpatient evaluation revealed acellular urine sediment, UPCR 0.2, 05/26 renal US - R 10.7cm, L 12cm. Moderate cortical thinning bilaterally w/ increased cortical echogenicity. Renal impairment attributed to DKD, hypertensive nephrosclerosis and microvascular disease (3) Hypertension: * BP above goal * Continue Carvedilol therpy * Will add Amlodipine 2.5 mg daily (4) Hyperkalemia: * Hold Losartan and Spironolactone * Agree w/ Lokelma therapy * Will add low K restriction to diet order * Mild metabolic acidosis due to LANRE. If this worsens, may add NaHCO3 (5) Diabetes mellitus: * Intolerant of Jardiance, could not afford Farxiga History of Present Illness Reason for Consultation: LANRE/CKD Attending Physician: Raul Aguirre DO History of Present Illness Mr. Dwyer is a 67 year old white male who is seen at the request of the [facility] Hospitalist Service for evaluation of LANRE/CKD. Information for the HPI is obtained from direct patient interview and review of the EMR. HPI is summarized as follows: Mr. Dwyer Following surgery has CKD stage G3b/A2 (moderate impairment). Baseline Cr has been 1.6-1.9 w/ EGFR 30 cc/min. Primary Net Trainer is Dr. Delaney. Outpatient evaluation has revealed acellular urine sediment, UPCR 0.2, 05/26 renal US - R 10.7cm, L 12cm. Moderate cortical thinning bilaterally w/ increased cortical echogenicity. Renal impairment has been attributed to DKD, hypertensive nephrosclerosis and microvascular disease. His medical history is also significant for AODM, HTN, hypercholesterolemia, PVD s/p L CEA, and h/o gastric ulcer. His medical regimen has included Losartan and Spironolactone. SGLT2i therapy was attempted but patient was intolerant of Jardiance and could not afford Farxiga. On 11/05/23 Mr. Dwyer underwent R TKA. He received Ketorolac 200 mg po prior to surgery and as part of periarticular infiltration. Losartan and Spironolactone were continued. Post-op Cr increased to 2.29 and patient developed hyperkalemia (K 6.9) requiring medical management. Losartan and Spironolactone have been held. Patient is scheduled to receive Lokelma. Potassium has improved to 5.4. Allergies Allergy/AdvReac Type Severity Reaction Status Date / Time amoxicillin Allergy Unknown Vomiting Verified 11/05/23 07:14 clavulanic acid Allergy Unknown Vomiting Verified 11/05/23 07:14 [From Augmentin] Home Medications Medication Instructions Recorded Confirmed Type atorvastatin 20 mg tablet 20 mg PO QPM 03/03/23 11/05/23 History blood sugar diagnostic (OneTouch 03/03/23 09/30/23 History Ultra Test strips) pen needle, diabetic 31 gauge x 03/03/23 09/30/23 History 5/16" (BD Ultra-Fine Short Pen Needle) aspirin 81 mg tablet,delayed 81 mg PO QAM 03/05/23 11/05/23 History release (Adult Low Dose Aspirin) carvedilol 25 mg tablet 25 mg PO BID 03/05/23 11/05/23 History losartan 50 mg tablet 100 mg PO QAM 03/05/23 11/05/23 History metformin 1,000 mg tablet 1,000 mg PO BID 04/18/23 11/05/23 History blood-glucose sensor (FreeStyle 05/13/23 09/30/23 History Darnell 3 Sensor device) glucagon 1 mg/0.2 mL subcutaneous 1 mg subcut UD PRN prn 05/13/23 11/05/23 History auto-injector insulin glargine 100 unit/mL (3 20 - 25 unit subcut BID 05/13/23 11/05/23 Hist ory mL) subcutaneous pen (Lantus Solostar U-100 Insulin) dapagliflozin propanediol 5 mg 5 mg PO QAM 10/01/23 11/05/23 History tablet (Farxiga) insulin aspart U-100 100 unit/mL 12 unit subcut TID 10/01/23 11/05/23 History (3 mL) subcutaneous pen (Novolog FlexPen U-100 Insulin aspart) spironolactone 50 mg tablet 50 mg PO QAM 10/01/23 11/05/23 History (Aldactone) acetaminophen 500 mg tablet 1,000 mg (2 x 500 mg) PO Q8 pain 11/05/23 Rx 21 days #126 tabs aspirin 81 mg tablet,delayed 81 mg PO BID 30 days #60 tabs 11/05/23 Rx release clindamycin HCl 300 mg capsule 300 mg PO TID 7 days #21 caps 11/05/23 Rx docusate sodium 100 mg capsule 100 mg PO BID #20 caps 11/05/23 Rx oxycodone 5 mg tablet 5 - 10 mg (1 - 2 x 5 mg) PO Q6H 11/05/23 Rx PRN pain #30 tabs Patient History Medical History Carotid artery stenosis left carotid endarterectomy 07/2023 Chronic kidney disease, stage 3b follows with Dr Delaney last visit 09/2023 History of kidney stones lithotripsy and passed on own Hx of gastric ulcer yrs ago Diabetes mellitus, type 2 IDDM Hypercholesteremia Hypertension controlled, stable per pt Surgical History History of carotid endarterectomy 07/2023, Lopez Yousif History of cardiac cath [facility] many years ago, unsure of date, no stents History of kidney surgery lithotripsy Family History Aunt Diabetes Uncle Diabetes Social History Smoking Status: Never smoker Second Hand Exposure: No; Do You Dip or Chew Tobacco: No; Hx Alcohol Use: No Hx Substance Use: No Preferred Language: Ken[place] Management Development Specialist Required: No Beliefs That Will Affect Care: None marital status: Current Living Situation: Spouse Feels Safe at Home: Yes Assistive Devices: Denture - Upper, Denture - Lower and Glasses Review of Systems Constitutional: no fever Eyes: no problem reported Ear, Nose, Mouth, Throat: no problem reported Respiratory: no cough and no dyspnea Cardiovascular: no chest pain Gastrointestinal: no abdominal pain, no nausea, no vomiting and no diarrhea/loose stools Genitourinary: no dysuria or no hematuria Integumentary: no rash Neurologic: no confusion Physical Exam Constitutional: not in distress Eyes: PERRL, conjunctivae normal, anicteric sclerae ENMT: external ear and nose normal, oropharynx normal Neck: trachea midline, no thyromegaly Respiratory: normal respiratory effort, lungs clear to auscultation Cardiovascular: RRR, no murmur, no edema Gastrointestinal (Abdomen): normal bowel sounds, soft, nontender, no hepatosplenomegaly Musculoskeletal: R knee wrapped w/ drain in place Skin: no rashes, warm and dry Neurologic: Speech / Cognition: normal speech and normal cognition Results & Data Vital Signs (Past 12 Hours) Vital Signs Temp Pulse Pulse Resp BP Pulse Ox O2 Del Method 11/06/23 08:32 Room Air 11/06/23 08:00 70 11/06/23 07:40 36.7 C 70 18 166/73 H 97 Room Air 11/06/23 03:52 36.7 C 69 17 153/73 H 97 Room Air 11/06/23 00:00 62 11/05/23 23:22 36.5 C 65 18 140/65 96 Room Air Laboratory Results Laboratory Results - last 24 hr 11/05/23 11/05/23 11/05/23 11:39 11:43 15:41 WBC 16.00 H RBC 3.86 L Hgb 12.4 L Hct 36.3 L MCV 94.0 MCH 32.1 MCHC 34.2 RDW Std Deviation 45.4 RDW Coeff of Flavia 13.2 Plt Count 291 MPV 10.3 Immature Gran % (Auto) 0.3 Neut % (Auto) 94.0 Lymph % (Auto) 3.8 Early % (Auto) 1.4 Eos % (Auto) 0.3 Baso % (Auto) 0.2 Neut # (Auto) 15.04 H Lymph # (Auto) 0.61 L Early # (Auto) 0.22 Eos # (Auto) 0.05 Baso # (Auto) 0.03 Immature Gran # (Auto) 0.05 Toxic Vacuolation 1+ Sodium 132 L 130 L Potassium 6.9 H* 6.5 H* Chloride 106 104 Carbon Dioxide 23 21 Anion Gap 3 5 BUN 26 H 33 H Creatinine 1.96 H 2.18 H Est Cr Clr Drug Dosing 37.9 34.1 Est GFR ( Amer) 39.3 34.5 Est GFR (Non-Af Amer) 33.9 29.8 BUN/Creatinine Ratio 13.3 15.1 Glucose 243 H 413 H* POC Glucose 237 H Calcium 8.6 8.4 L Magnesium 1.6 L Urine Color Urine Appearance Urine pH Ur Specific [place] Urine Protein Urine Glucose (UA) Urine Ketones Urine Blood Urine Nitrite Urine Bilirubin Urine Urobilinogen Ur Leukocyte Esterase 11/05/23 11/05/23 11/05/23 16:19 16:21 18:47 WBC RBC Hgb Hct MCV MCH MCHC RDW Std Deviation RDW Coeff of Flavia Plt Count MPV Immature Gran % (Auto) Neut % (Auto) Lymph % (Auto) Early % (Auto) Eos % (Auto) Baso % (Auto) Neut # (Auto) Lymph # (Auto) Early # (Auto) Eos # (Auto) Baso # (Auto) Immature Gran # (Auto) Toxic Vacuolation Sodium Potassium Chloride Carbon Dioxide Anion Gap BUN Creatinine Est Cr Clr Drug Dosing Est GFR ( Amer) Est GFR (Non-Af Amer) BUN/Creatinine Ratio Glucose POC Glucose 384 H* 359 H* 286 H Calcium Magnesium Urine Color Urine Appearance Urine pH Ur Specific [place] Urine Protein Urine Glucose (UA) Urine Ketones Urine Blood Urine Nitrite Urine Bilirubin Urine Urobilinogen Ur Leukocyte Esterase 11/05/23 11/05/23 11/05/23 19:47 20:37 23:45 WBC RBC Hgb Hct MCV MCH MCHC RDW Std Deviation RDW Coeff of Flavia Plt Count MPV Immature Gran % (Auto) Neut % (Auto) Lymph % (Auto) Early % (Auto) Eos % (Auto) Baso % (Auto) Neut # (Auto) Lymph # (Auto) Early # (Auto) Eos # (Auto) Baso # (Auto) Immature Gran # (Auto) Toxic Vacuolation Sodium 131 L Potassium 5.9 H Chloride 104 Carbon Dioxide 21 Anion Gap 6 BUN 35 H Creatinine 2.29 H Est Cr Clr Drug Dosing 32.4 Est GFR ( Amer) 32.5 Est GFR (Non-Af Amer) 28.1 BUN/Creatinine Ratio 15.3 Glucose 273 H POC Glucose 246 H Calcium 8.8 Magnesium Urine Color Yellow Urine Appearance Clear Urine pH 5.0 Ur Specific [place] 1.021 Urine Protein Negative Urine Glucose (UA) 3+ H Urine Ketones Negative Urine Blood Negative Urine Nitrite Negative Urine Bilirubin Negative Urine Urobilinogen Negative Ur Leukocyte Esterase Negative 11/05/23 11/06/23 11/06/23 23:52 00:23 03:56 WBC RBC Hgb Hct MCV MCH MCHC RDW Std Deviation RDW Coeff of Flavia Plt Count MPV Immature Gran % (Auto) Neut % (Auto) Lymph % (Auto) Early % (Auto) Eos % (Auto) Baso % (Auto) Neut # (Auto) Lymph # (Auto) Early # (Auto) Eos # (Auto) Baso # (Auto) Immature Gran # (Auto) Toxic Vacuolation Sodium 131 L Potassium 5.6 H Chloride 104 Carbon Dioxide 20 L Anion Gap 7 BUN 36 H Creatinine 2.17 H Est Cr Clr Drug Dosing 34.2 Est GFR ( Amer) 34.7 Est GFR (Non-Af Amer) 30.0 BUN/Creatinine Ratio 16.6 Glucose 272 H POC Glucose 231 H 256 H Calcium 8.2 L Magnesium Urine Color Urine Appearance Urine pH Ur Specific [place] Urine Protein Urine Glucose (UA) Urine Ketones Urine Blood Urine Nitrite Urine Bilirubin Urine Urobilinogen Ur Leukocyte Esterase 11/06/23 11/06/23 04:14 07:34 WBC 29.07 H D RBC 3.72 L Hgb 11.7 L Hct 35.4 L MCV 95.2 MCH 31.5 MCHC 33.1 RDW Std Deviation 45.1 RDW Coeff of Flavia 13.1 Plt Count 277 MPV 11.0 Immature Gran % (Auto) Neut % (Auto) Lymph % (Auto) Early % (Auto) Eos % (Auto) Baso % (Auto) Neut # (Auto) Lymph # (Auto) Early # (Auto) Eos # (Auto) Baso # (Auto) Immature Gran # (Auto) Toxic Vacuolation Sodium 132 L Potassium 5.4 H Chloride 106 Carbon Dioxide 20 L Anion Gap 6 BUN 39 H Creatinine 2.14 H Est Cr Clr Drug Dosing 34.7 Est GFR ( Amer) 35.3 Est GFR (Non-Af Amer) 30.5 BUN/Creatinine Ratio 18.2 Glucose 248 H POC Glucose 179 H Calcium 8.3 L Magnesium Urine Color Urine Appearance Urine pH Ur Specific [place] Urine Protein Urine Glucose (UA) Urine Ketones Urine Blood Urine Nitrite Urine Bilirubin Urine Urobilinogen Ur Leukocyte Esterase PG Care Time/CCT Total # of Minutes Spent Total Time Spent with Patient: Total time spent is greater than 50% in coordination of care (as documented) at patient's floor/unit and/or counseling patient: Coding Level of Care Code 41695 IN/OBS CONSULT LVL 5,80M Diagnoses Acute kidney injury N17.9 Chronic kidney disease, stage 3b N18.32 Hypertension I10 Hyperkalemia E87.5 Diabetes mellitus E11.9
[2023-11-06] MEDS: amLODIPine BESYLATE 5 MG TAB PO SCH (12:13)
--- NOTE | 2023-11-06 12:34 | Pharmacy Report ---
Pharmacy Glycemic Short Note 2 - Date of Service November 06, 2023 - Glycemic Short BSG Results (Last 24 hours): 11/05/23 11/05/23 11/05/23 11:43 15:41 16:19 Glucose 243 H 413 H* POC Glucose 384 H* 11/05/23 11/05/23 11/05/23 16:21 18:47 19:47 Glucose 273 H POC Glucose 359 H* 286 H 11/05/23 11/05/23 11/06/23 20:37 23:52 00:23 Glucose 272 H POC Glucose 246 H 231 H 11/06/23 11/06/23 11/06/23 03:56 04:14 07:34 Glucose 248 H POC Glucose 256 H 179 H 11/06/23 11:43 Glucose POC Glucose 139 H OUTPATIENT ANTIDIABETIC REGIMEN: * Lantus 25 units Qam and 20 units Qpm, novolog 16 units tidm, metformin 1 gm bid, farxiga 5 mg qam ASSESSMENT: 11/05 * Provider managing patient glycemic yesterday due to hyerkalemia. Pharmacy managing consult again this AM * Patient received total of 113 units of insulin yesterday, of which 40 units were basal * Fasting BSG 179 mg/dL - however did receive ~15 units of correctional insulin overnight likely due to steroid effects from preop steroids yesterday AM * Anticipate steroid effects to be wearing off later today. Since BSG elevated this AM, will give full home dose of basal this AM - could consider splitting back to BID dosing tomorrow to match home dose * Loosened CF/CR with dinner time 11/04 * 67 year old now s/p surgery, POD 0 - pharmacy consulted to assist with glycemic management. Postop BSGs > 200 - confirmed with RN that patient did not take any basal insulin yet this AM. Last dose of basal insulin was last evening (20 units). * Anticipate BSGs to continue to rise as steroids also given preoperative. K level came back elevated - provider ordering IV insulin for hyperkalemia/d50. Provider would like to hold all insulin for now. Will reassess at dinner, patient will need basal insulin ordered as none received yet today. PLAN FOR INPATIENT GLYCEMIC CONTROL: * Hold outpatient oral diabetes medications * Basal insulin * Lantus 40 units once daily * Consider changing back to BID dosing 11/06 * Bolus insulin * NovoLog per scale ACHS or Q6hrs while NPO * Goal Range: Low 110 mg/dL - High 140 mg/dL * Correction Factor: 15 mg/dL/unit * Nutritional / Prandial insulin per carb ratio of 1 unit per 5 grams CHO consumed
[2023-11-06 15:35] LABS: Calcium 8.4 mg/dl (8.6-10.3); Potassium 4.9 mmol/L (3.5-5.1)
[2023-11-06 15:41] LABS: BUN Creatinine Ratio 18.3 (10-20); Creatinine Clr Calc Pharmacy 35.7 ml/min; Est GFR (African American) 36.6 ml/min; Est GFR (Non-African American) 31.5 ml/min
--- NOTE | 2023-11-06 22:32 | Hospitalist Progress Note ---
Date of Service November 06, 2023 Assessment & Plan (1) Status post right knee replacement: Plan: VTE / Pain / bowel management per primary orthopedic team (2) History of carotid endarterectomy: Plan: s/p CEA [07/26/2023], restart aspirin when ok from orthopedics Continue atorvastatin (3) Chronic kidney disease, stage 3b: Plan: Follows with nephrology, hyperkalemia on post operative labs I do not see this being addressed therefore will repeat labs today to determine if spironolactone needs to be discontinued or any other active treatment is needed. Consulted nephro: will hold spironoactone and losartan added amlodipine. will monitor. (4) Hypertension: Plan: Continue carvedilol Continue losartan with hold parameters is sBP < 100 Repeat labs to determine need for continuing/holding spironolactone (5) Type 2 diabetes mellitus: Plan: HbA1C 7.4 [10/12], no need to repeat Pharmacy has been consulted by primary team for glycemic control, will follow Ok to continue Farxiga and metformin from medical perspective Notably taking Farxiga every other day due to cost - advised this will likely lead to fluctuant glucose levels and he should discuss more with his diabetes team (6) Hyperkalemia: Plan: Noted on outpatient labs pre-operatively with no adjustment in medications per patient. He did not take his spironolactone this morning. Repeat pending. Admission and Anticipated Discharge Date Admission Date: November 05, 2023 Subjective Patient reports no new symptoms. Review of Systems Review of Systems: All systems reviewed & are unremarkable except as noted in HPI & below Physical Exam Constitutional: WD/WN, vitals as above Respiratory: normal respiratory effort, lungs clear to auscultation Cardiovascular: RRR, no murmur, no edema Gastrointestinal (Abdomen): normal bowel sounds, soft, nontender, no hepatosplenomegaly Neurologic: awake; not confused Psychiatric: A+Ox3, euthymic affect Results & Data Results & Data Vital Signs (Past 12 Hours) Vital Signs Temp Pulse Pulse Pulse Resp BP BP 11/06/23 19:17 36.9 C 72 18 161/54 H 11/06/23 15:48 36.7 C 67 18 165/65 H 11/06/23 15:38 70 11/06/23 11:56 36.7 C 64 19 171/75 H Pulse Ox O2 Del Method 11/06/23 19:17 96 Room Air 11/06/23 15:48 96 Room Air 11/06/23 15:38 11/06/23 11:56 96 Room Air PG Care Time/CCT Total # of Minutes Spent Total Time Spent with Patient: Total time spent is greater than 50% in coordination of care (as documented) at patient's floor/unit and/or counseling patient: Coding Level of Care Code 07261 SUB INP/OBS CARE 2/35MIN Diagnoses Status post right knee replacement Z96.651 History of carotid endarterectomy Z98.890 Chronic kidney disease, stage 3b N18.32 Hypertension I10 Type 2 diabetes mellitus E11.9 Hyperkalemia E87.5
[2023-11-07] MEDS: INSULIN ASPART PER UNIT CHARGE SC SCH (00:50)
[2023-11-07 05:40] LABS: Hematocrit (blood only) 30.8 % (42.0-52.0); Hemoglobin 10.3 g/dl (14.0-18.0); Mean Corpuscular Hemoglobin 31.8 pg (25.0-34.0); Mean Corpuscular Hgb Conc 33.4 g/dL (32.0-36.0); Mean Corpuscular Volume 95.1 fL (80.0-100.0); Mean Platelet Volume 10.6 fL (9.4-12.4); Platelet Count 242 K/uL (130-400); RDW Coefficient of Variation 13.4 % (11.5-14.5); RDW Standard Deviation 46.3 fL (36.4-46.3); Red Blood Count 3.24 M/uL (4.70-6.10); White Blood Count 14.18 K/ul (4.8-10.8)
[2023-11-07 06:18] LABS: BUN Creatinine Ratio 20.5 (10-20); Calcium 8.4 mg/dl (8.6-10.3); Creatinine Clr Calc Pharmacy 39.1 ml/min; Est GFR (African American) 40.8 ml/min; Est GFR (Non-African American) 35.2 ml/min; Potassium 4.4 mmol/L (3.5-5.1)
--- NOTE | 2023-11-07 06:32 | Orthopedic Progress Note ---
Date of Service November 07, 2023 Assessment & Plan (1) Status post right knee replacement: Plan: POD #2 s/p Right TKA PT/OT protocols. Weightbearing as tolerated. DVT prophylaxis-aspirin p.o. twice daily, MICHOACANO Morocho Pain management as written. Leukocytosis-coming down nicely. Patient asymptomatic. BUN continues to remain elevated however creatinine is coming down slowly and is 1.9 this morning. Hyperkalemia- am labs showing normal potassium today. DC planning-patient planning for home health services upon discharge. Plan for discharge home today if okay with medicine service and nephrology (2) Hyperkalemia: (3) Chronic kidney disease, stage 3b: (4) Hypertension: (5) Type 2 diabetes mellitus: Admission and Anticipated Discharge Date Admission Date: November 05, 2023 Subjective Postop day 2 Patient sitting in bed awake and alert. No complaints this morning. Pain is controlled. Denies shortness of breath, chest pain, lightheadedness. Denies burning on urination. He is hoping to go home today. Physical Exam Physical Exam: Dressings are clean, dry, and intact. Hemovac drain had been removed yesterday. Rusty dressing is on and functioning. Calves are soft nontender. Neurovascular intact. Toes are mobile. Results & Data Vital Signs (Past 12 Hours) Vital Signs Temp Pulse Pulse Resp BP BP Pulse Ox 11/07/23 03:51 36.7 C 67 16 149/67 H 97 11/07/23 00:32 36.9 C 69 18 153/62 H 96 11/06/23 21:58 68 11/06/23 19:17 36.9 C 72 18 161/54 H 96 O2 Del Method 11/07/23 03:51 Room Air 11/07/23 00:32 Room Air 11/06/23 21:58 11/06/23 19:17 Room Air Laboratory Results Laboratory Results WBC 14.18 K/ul (4.8-10.8) H 11/07/23 05:07 RBC 3.24 M/uL (4.70-6.10) L 11/07/23 05:07 Hgb 10.3 g/dl (14.0-18.0) L 11/07/23 05:07 Hct 30.8 % (42.0-52.0) L 11/07/23 05:07 MCV 95.1 fL (80.0-100.0) 11/07/23 05:07 MCH 31.8 pg (25.0-34.0) 11/07/23 05:07 MCHC 33.4 g/dL (32.0-36.0) 11/07/23 05:07 RDW Std Deviation 46.3 fL (36.4-46.3) 11/07/23 05:07 RDW Coeff of Flavia 13.4 % (11.5-14.5) 11/07/23 05:07 Plt Count 242 K/uL (130-400) 11/07/23 05:07 MPV 10.6 fL (9.4-12.4) 11/07/23 05:07 Immature Gran % (Auto) 0.3 % 11/05/23 11:43 Neut % (Auto) 94.0 % 11/05/23 11:43 Lymph % (Auto) 3.8 % 11/05/23 11:43 [place] % (Auto) 1.4 % 11/05/23 11:43 Eos % (Auto) 0.3 % 11/05/23 11:43 Baso % (Auto) 0.2 % 11/05/23 11:43 Neut # (Auto) 15.04 K/uL (1.40-6.50) H 11/05/23 11:43 Lymph # (Auto) 0.61 K/uL (1.20-3.40) L 11/05/23 11:43 [place] # (Auto) 0.22 K/uL (0.11-0.59) 11/05/23 11:43 Eos # (Auto) 0.05 K/uL (0.00-0.50) 11/05/23 11:43 Baso # (Auto) 0.03 K/uL (0.00-0.20) 11/05/23 11:43 Immature Gran # (Auto) 0.05 K/uL (0.01-0.20) 11/05/23 11:43 Toxic Vacuolation 1+ 11/05/23 11:43 Sodium 140 mmol/L (136-145) 11/07/23 05:07 Potassium 4.4 mmol/L (3.5-5.1) 11/07/23 05:07 Chloride 110 mmol/L (98-107) H 11/07/23 05:07 Carbon Dioxide 24 mmol/L (21-32) 11/07/23 05:07 Anion Gap 6 (3-11) 11/07/23 05:07 BUN 39 mg/dl (6-23) H 11/07/23 05:07 Creatinine 1.90 mg/dl (0.6-1.4) H 11/07/23 05:07 Est Cr Clr Drug Dosing 39.1 ml/min 11/07/23 05:07 Est GFR ( Amer) 40.8 ml/min 11/07/23 05:07 Est GFR (Non-Af Amer) 35.2 ml/min 11/07/23 05:07 BUN/Creatinine Ratio 20.5 (10-20) H 11/07/23 05:07 Glucose 87 mg/dl (70-99(Fasting)) 11/07/23 05:07 POC Glucose 202 mg/dl (70-99) H 11/07/23 00:42 Calcium 8.4 mg/dl (8.6-10.3) L 11/07/23 05:07 Magnesium 1.6 mg/dl (1.7-2.4) L 11/05/23 15:41 Urine Color Yellow 11/05/23 23:45 Urine Appearance Clear (Clear) 11/05/23 23:45 Urine pH 5.0 (4.5-7.5) 11/05/23 23:45 Ur Specific [place] 1.021 (1.000-1.030) 11/05/23 23:45 Urine Protein Negative (Negative) 11/05/23 23:45 Urine Glucose (UA) 3+ (Negative) H 11/05/23 23:45 Urine Ketones Negative (Negative) 11/05/23 23:45 Urine Blood Negative (Negative) 11/05/23 23:45 Urine Nitrite Negative (Negative) 11/05/23 23:45 Urine Bilirubin Negative (Negative) 11/05/23 23:45 Urine Urobilinogen Negative (Negative) 11/05/23 23:45 Ur Leukocyte Esterase Negative (Negative) 11/05/23 23:45 Impressions
[2023-11-07] MEDS: LANTUS PER UNIT CHARGE SC SCH (08:12)
--- NOTE | 2023-11-07 08:43 | Nephrology Progress Note ---
Date of Service November 07, 2023 Assessment & Plan (1) Acute kidney injury: Plan: * Resolved * LANRE was likely related to hemodynamic changes in the setting of NSAID and ARB therapy * Urine sediment is negative for cellular casts * Ketorolac and Losartan have been stopped * If discharge is anticipated, please have patient follow up w/ Dr. Delaney ([phone]) within 2 weeks of hospital discharge for ongoing monitoring of kidney function and to assess whether to resume Losartan and or Spironolactone (2) Chronic kidney disease, stage 3b: Plan: * CKD stage G3b/A2 (moderate impairment). Baseline Cr 1.6-1.9 w/ EGFR 30 cc/min. Outpatient evaluation revealed acellular urine sediment, UPCR 0.2, 05/26 renal US - R 10.7cm, L 12cm. Moderate cortical thinning bilaterally w/ increased cortical echogenicity. Renal impairment attributed to DKD, hypertensive nephrosclerosis and microvascular disease (3) Hypertension: Plan: * BP has been variable * Continue Carvedilol and Amlodipine therapy (4) Hyperkalemia: Plan: * Resolved * Continue to hold Losartan and Spironolactone (5) Diabetes mellitus: Plan: * Intolerant of Jardiance, could not afford [facility] Admission and Anticipated Discharge Date Admission Date: November 05, 2023 Subjective Mr. Dwyer was evaluated in his hospital room this morning. At the time of my evaluation he was sitting up in a chair but reported that he had been ambulating without difficulty Review of Systems Constitutional: no fever Eyes: no problem reported Ear, Nose, Mouth, Throat: no problem reported Respiratory: no cough and no dyspnea Cardiovascular: no chest pain Gastrointestinal: no abdominal pain, no nausea, no vomiting and no diarrhea/loose stools Genitourinary: no dysuria or no hematuria Integumentary: no rash Neurologic: no confusion Physical Exam Constitutional: not in distress Eyes: PERRL, conjunctivae normal, anicteric sclerae ENMT: external ear and nose normal, oropharynx normal Neck: trachea midline, no thyromegaly Respiratory: normal respiratory effort, lungs clear to auscultation Cardiovascular: RRR, no murmur, no edema Gastrointestinal (Abdomen): normal bowel sounds, soft, nontender, no hepatosplenomegaly Skin: no rashes, warm and dry Neurologic: Speech / Cognition: normal speech and normal cognition Results & Data Vital Signs (Past 12 Hours) Vital Signs Temp Pulse Pulse Resp BP BP Pulse Ox 11/07/23 07:54 36.6 C 65 18 162/81 H 96 11/07/23 03:51 36.7 C 67 16 149/67 H 97 11/07/23 00:32 36.9 C 69 18 153/62 H 96 11/06/23 21:58 68 O2 Del Method 11/07/23 07:54 Room Air 11/07/23 03:51 Room Air 11/07/23 00:32 Room Air 11/06/23 21:58 Laboratory Results Laboratory Results - last 24 hr 11/06/23 11/06/23 11/06/23 11:43 14:51 16:33 WBC RBC Hgb Hct MCV MCH MCHC RDW Std Deviation RDW Coeff of Flavia Plt Count MPV Sodium 134 L Potassium 4.9 Chloride 107 Carbon Dioxide 22 Anion Gap 5 BUN 38 H Creatinine 2.08 H Est Cr Clr Drug Dosing 35.7 Est GFR ( Amer) 36.6 Est GFR (Non-Af Amer) 31.5 BUN/Creatinine Ratio 18.3 Glucose 164 H POC Glucose 139 H 136 H Calcium 8.4 L 11/06/23 11/07/23 11/07/23 20:43 00:42 05:07 WBC 14.18 H RBC 3.24 L Hgb 10.3 L Hct 30.8 L MCV 95.1 MCH 31.8 MCHC 33.4 RDW Std Deviation 46.3 RDW Coeff of Flavia 13.4 Plt Count 242 MPV 10.6 Sodium 140 Potassium 4.4 Chloride 110 H Carbon Dioxide 24 Anion Gap 6 BUN 39 H Creatinine 1.90 H Est Cr Clr Drug Dosing 39.1 Est GFR ( Amer) 40.8 Est GFR (Non-Af Amer) 35.2 BUN/Creatinine Ratio 20.5 H Glucose 87 POC Glucose 270 H 202 H Calcium 8.4 L 11/07/23 07:37 WBC RBC Hgb Hct MCV MCH MCHC RDW Std Deviation RDW Coeff of Flavia Plt Count MPV Sodium Potassium Chloride Carbon Dioxide Anion Gap BUN Creatinine Est Cr Clr Drug Dosing Est GFR ( Amer) Est GFR (Non-Af Amer) BUN/Creatinine Ratio Glucose POC Glucose 88 Calcium PG Care Time/CCT Total # of Minutes Spent Total Time Spent with Patient: Total time spent is greater than 50% in coordination of care (as documented) at patient's floor/unit and/or counseling patient: Coding Level of Care Code 94863 SUB INP/OBS CARE 350MIN Diagnoses Acute kidney injury N17.9 Chronic kidney disease, stage 3b N18.32 Hypertension I10 Hyperkalemia E87.5 Diabetes mellitus E11.9
--- NOTE | 2023-11-07 12:02 | Hospitalist Progress Note ---
Date of Service November 07, 2023 Assessment & Plan (1) Status post right knee replacement: Plan: VTE / Pain / bowel management per primary orthopedic team (2) History of carotid endarterectomy: Plan: s/p CEA [07/26/2023], restart aspirin when ok from orthopedics Continue atorvastatin (3) Chronic kidney disease, stage 3b: Plan: Follows with nephrology, hyperkalemia on post operative labs I do not see this being addressed therefore will repeat labs today to determine if spironolactone needs to be discontinued or any other active treatment is needed. Consulted nephro: will hold spironoactone and losartan added amlodipine. will monitor. (4) Hypertension: Plan: Continue carvedilol Added amlodipine. will hold spironolactone and losartan. (5) Type 2 diabetes mellitus: Plan: HbA1C 7.4 [10/12], no need to repeat Pharmacy has been consulted by primary team for glycemic control, will follow Ok to continue Farxiga and metformin from medical perspective Notably taking Farxiga every other day due to cost - advised this will likely lead to fluctuant glucose levels and he should discuss more with his diabetes team (6) Hyperkalemia: Plan: Noted on outpatient labs pre-operatively with no adjustment in medications per patient. He did not take his spironolactone this morning. Repeat pending. Admission and Anticipated Discharge Date Admission Date: November 05, 2023 Subjective Patient reports no new symptoms. Review of Systems Review of Systems: All systems reviewed & are unremarkable except as noted in HPI & below Physical Exam Constitutional: WD/WN, vitals as above Respiratory: normal respiratory effort, lungs clear to auscultation Cardiovascular: RRR, no murmur, no edema Gastrointestinal (Abdomen): normal bowel sounds, soft, nontender, no hepatosplenomegaly Neurologic: awake; not confused Psychiatric: A+Ox3, euthymic affect Results & Data Results & Data Vital Signs (Past 12 Hours) Vital Signs Temp Pulse Pulse Pulse Resp BP BP 11/07/23 10:42 36.6 C 65 67 18 162/81 H 149/67 H 11/07/23 07:54 36.6 C 65 18 162/81 H 11/07/23 07:15 59 L 11/07/23 03:51 36.7 C 67 16 149/67 H 11/07/23 00:32 36.9 C 69 18 153/62 H Pulse Ox O2 Del Method 11/07/23 10:42 96 11/07/23 07:54 96 Room Air 11/07/23 07:15 11/07/23 03:51 97 Room Air 11/07/23 00:32 96 Room Air PG Care Time/CCT Total # of Minutes Spent Total Time Spent with Patient: Total time spent is greater than 50% in coordination of care (as documented) at patient's floor/unit and/or counseling patient: Coding Level of Care Code 58301 SUB INP/OBS CARE 2/35MIN Diagnoses Status post right knee replacement Z96.651 History of carotid endarterectomy Z98.890 Chronic kidney disease, stage 3b N18.32 Hypertension I10 Type 2 diabetes mellitus E11.9 Hyperkalemia E87.5
--- NOTE | 2023-11-08 00:51 | Electrocardiogram Report ---
Test Reason : Blood Pressure : / mmHG Vent. Rate : 064 BPM Atrial Rate : 064 BPM P-R Int : 186 ms QRS Dur : 084 ms QT Int : 422 ms P-R-T Axes : 059 085 060 degrees QTc Int : 435 ms Normal sinus rhythm Nonspecific ST abnormality Abnormal ECG When compared with ECG of 13-OCT-2023 12:14, T wave inversion no longer evident in Lateral leads Confirmed by Chas Talbot ([id number]) on 11/08/2023 12:50:52 AM Referred By: Raul Aguirre Confirmed By:Chas Talbot
--- NOTE | 2023-11-10 07:56 | Discharge Summary ---
Date of Service date of discharge: November 07, 2023 date of admission: 11/05/23 Admission HPI Per Admitting Provider Brennan is a 67-year-old male who presented for preop evaluation prior to upcoming right total knee arthroplasty. Brennan has a longstanding history of right knee pain which is gradually worsened and is now affecting his daily activities including walking standing using stairs. He had a previous right knee arthroscopy in 2019, since that time undergone cortisone injection as well as viscosupplementation with no improvement. He has tried oral anti-inflammatories and Tylenol. At this point time is failed conservative measures and wishes to proceed with a right total knee replacement Principal Diagnosis right knee arthritis Discharge Exam Musculoskeletal Right knee: NVDI, calf SNT, negative merrick sign. DP palpable, able to wiggle toes/ankle movement without difficulty. dressing clean dry and intact. Discharge Data Allergies Allergy/AdvReac Type Severity Reaction Status Date / Time amoxicillin Allergy Unknown Vomiting Verified 11/05/23 07:14 clavulanic acid Allergy Unknown Vomiting Verified 11/05/23 07:14 [From Augmentin] Consultations 11/05/23 11:27 Consult Hospitalist Routine 11/06/23 09:38 Consult Nephrology Routine Procedures Performed Operation Date: 11/05/23 08:10 Actual Procedures p Right Total Knee Arthroplasty(Right) - Raul Beverly DO Ordered Studies 11/05/23 05:00 US - OR guided needle placemen Routine Hospital Course (1) Status post right knee replacement: POD #2 s/p Right TKA PT/OT protocols. Weightbearing as tolerated. DVT prophylaxis-aspirin p.o. twice daily, SCDs, MICHOACANO burkett Pain management as written. Leukocytosis-coming down nicely. Patient asymptomatic. BUN continues to remain elevated however creatinine is coming down slowly and is 1.9 this morning. Hyperkalemia- am labs showing normal potassium today. DC planning-patient planning for home health services upon discharge. Plan for discharge home today if okay with medicine service and nephrology (2) Hyperkalemia: (3) Chronic kidney disease, stage 3b: (4) Hypertension: (5) Type 2 diabetes mellitus: Total Time Total Time Spent Total Time Spent (In Minutes): 20 Discharge Plan Discharge Items Patient Disposition: Home - Home Health Services Reason For Visit: Right Knee Osteoarthritis Discharge Diagnosis: RIGHT TOTAL KNEE REPLACEMENT Activity: Per Instructions section Weightbearing: Full weightbearing Weightbearing Comment: WBAT WITH WALKER Non-emergency contact: Surgeon Call non-emergency contact if: you have any medication questions, your temperature is above 101, your wound has increased redness, your wound has increased drainage and your wound pain has increased Follow-up/Referrals: Elisabet Stevenson PA-C [Primary Care Provider] - 11/13/23 10:00 am (Scheduled with Elisabet Stevenson PA-C) Raul Beverly DO [Surgeon] - (FOLLOW UP WITH DR BEVERLY OR HIS PA IN 2 WEEKS FROM THE DAY OF SURGERY FOR YOUR FIRST POST OPERATIVE VISIT.) Diet: Carb Consistent or DM2 Addtl Attending Provider Instructions: ACTIVITY RECOMMENDATIONS: SELF CARE INSTRUCTIONS AFTER TOTAL KNEE REPLACEMENT A. You may need to continue a physical therapy program after discharge from the hospital. There are several options available to you. Your doctor will assist you in selecting the best one for you. 1. An out-patient facility 2 to 3 times a week for therapy or home therapy. 2. Continue working on all exercises taught to you in the hospital. Your goals should be to increase bending of your knee to 90 degrees and beyond and to fully straighten your knee. B. You may progress at your own pace from walking with a walker or crutches to a cane; then to no assistive devices. C. Make walking a part of your daily routine. Be up as much as comfortable with rest periods throughout the day. Rest with leg elevation is very important. Use the ice wrap frequently for the first 3-4 weeks. D. There are no restrictions on activities. You may ride in a car, shop, participate in property assessment monitor and all social activities. E. Wear the long elastic stockings (MICHOACANO hose) 20 hours a day for 2 weeks after surgery. They can be removed several times a day for laundering and for a bath. F. You may shower, no tub baths until cleared by your doctor. SPECIAL CARE INSTRUCTIONS: VERY IMPORTANT TO READ AND REVIEW A. There are a few signs you need to watch for after you are home. Call [facility] if you notice any of the followin. Increased severe knee pain. Some pain is expected especially when you exercise. 2. Increased swelling in your leg or knee; pain or swelling of the calf muscle in either lower leg. 3. Any fluid drainage from the incision. 4. Shortness of breath or chest pain. B. Please call [facility] at if you have any concerns or questions about your operation or recovery. The doctor or his nurse will return your call promptly. C. You must take antibiotics before dental work, bladder, bowel or other surgery. Your doctor will provide you with a permanent care to carry describing this precaution. IMPORTANT: * REMEMBER TO TAKE ASPIRIN, 81 MG, TWICE DAILY FOR 4 WEEKS UNLESS OTHERWISE DIRECTED. THIS IS YOUR BLOOD THINNER. * HIGH RISK PATIENTS MAY BE PRESCRIBED A STRONGER BLOOD THINNER. THIS WILL BE PROVIDED AT DISCHARGE. * CALL IF INCREASED PAIN, REDNESS, DRAINAGE OR FEVER GREATER THAT 101. * WEAR MICHOACANO HOSE 20 HOURS PER DAY FOR 2 WEEKS. DRESSING INSTRUCTIONS * ELISE Dressing- This is a large suction dressing covering your incision. This will help pull any excess drainage from the wound and allow your incision to heal properly. You may shower with this if you can keep the unit outside of the shower. If any bleeding or leakage is noted please call your doctor's o ffice. This will remain on your incision for 7 days and then should be removed. This can be done yourself or by the home nursing staff if applicable. The entire unit is disposable once removed. Once removed, keep incision clean and dry. If redness or drainage is noted, please call your surgeon. ONCE ELISE IS REMOVED, FOLLOW THESE INSTRUCTIONS: DERMABOND Prineo- This is a mesh tape dressing that is covered with glue. It should remain in place until the incision is properly healed, usually 10-14 days. This dressing is designed to naturally slough off. You may trim the excess mesh tape as it peels off. Incision may be briefly wet in a shower. Dry immediately by blotting with a clean, dry towel. Do not bath or swim until instructed by your doctor. Do not scratch, rub, or pick at the dressing. Do not apply any topical ointments or lotions until dressing is completely removed and/or instructed by your doctor. There may be a small piece of suture material at one end of your incision. Do not pull or trim this. If it is bothersome or catching on clothing, you may cover it with a band-aid. IF INCISION IS LEAKING THROUGH DRESSING, CALL THE OFFICE . FOLLOW UP VISIT: If appointment is not already scheduled: Please call [facility] to make a follow-up appointment for 2 weeks after your surgery at . Addtl [employer] Provider Instructions: * please have patient follow up w/ Dr. Delaney ([phone]) within 2 weeks of hospital discharge for ongoing monitoring of kidney function and to assess whether to resume Losartan and or Spironolactone Pending Studies at Discharge: No Stand-Alone Forms: My [facility] Medications and DC Order Prescriptions: New acetaminophen 500 mg tablet 1,000 mg PO Q8 21 Days Qty: 126 0RF aspirin 81 mg tablet,delayed release (DR/EC) 81 mg PO BID 30 Days Qty: 60 0RF clindamycin HCl 300 mg capsule 300 mg PO TID 7 Days Qty: 21 0RF docusate sodium 100 mg Capsule 100 mg PO BID Qty: 20 0RF oxycodone 5 mg tablet 5 - 10 mg PO Q6H PRN (Reason: pain) Qty: 30 0RF Rx Instructions: ongoing therapy, supervising dr shayna beverly. max 6 tabs in 24 hours. date of surgery 11/05/23 amlodipine [Norvasc] 5 mg Tablet 2.5 mg PO QAM Qty: 30 0RF Continued glucagon 1 mg/0.2 mL auto-injector 1 mg subcut UD PRN (Reason: prn) (DME) FreeStyle Darnell 3 Sensor Device See Rx Instructions .Route Rx Instructions: change every 14 days atorvastatin 20 mg tablet 20 mg PO QPM (DME) pen needle, diabetic [BD Ultra-Fine Short Pen Needle] 31 gauge x 5/16" needle See Rx Instructions .Route Rx Instructions: Inject insulin daily (DME) OneTouch Ultra Test Strip See Rx Instructions .Route Rx Instructions: Test blood sugar two times daily carvedilol 25 mg tablet 25 mg PO BID Rx Instructions: must administer with a meal/food losartan 50 mg tablet 100 mg PO QAM metformin 1,000 mg tablet 1,000 mg PO BID Lantus Solostar U-100 Insulin 100 unit/mL (3 mL) insulin pen 20 - 25 unit subcut BID Patient Comments: Patient takes 30 units in am; 30 units in evening. Rx Instructions: 25 units in the am 20 units in the pm insulin aspart U-100 [Novolog FlexPen U-100 Insulin] 100 unit/mL (3 mL) insulin pen 12 unit subcut TID MDD up TDD of 50 unit per day Patient Comments: patient varies from 12-15 units BID to TID Rx Instructions: start 8 units of novolog with 3 meals a day. Titrate up per protocol. dapagliflozin propanediol [Farxiga] 5 mg tablet 5 mg PO QAM Discontinued aspirin [Adult Low Dose Aspirin] 81 mg tablet,delayed release (DR/EC) 81 mg PO QAM spironolactone [Aldactone] 50 mg tablet 50 mg PO QAM Rx Instructions: Take one tablet by mouth once daily. Admission Data Admit Date/Time: 11/05/23 09:20 Attending Provider: Raul Beverly Admit Provider: Raul Beverly Primary Care Provider: Elisabet Stevenson Other Providers: Ganesh Zacarias; Elisabet Yanez; Pérez Givens; Andriy Riley; Raul Aguilar; Jae Kaiser; Ele Davis; Gisella Dunbar; Maryam Sanchez; Pa Bean; Mango Santillan; Priya Burgos; Taras Brewster; Pérez Obando; Carlos Richardson; Megan Cheng; Alana Sanchez; Gilson Sanchez; Silvana Daley; Kavon Shipley; Mango Patterson; Dia Lopez; Noemy De La Cruz; Brandie Partida; Danilo Ernst; Tisha Villegas; Andriy Meléndez; Raul Murray; Leila Dolan; Sergio Dickerson; Vignesh Delaney Kevin C.; Deb Olson; Fuad Marroquin [facility] Other Interventions: Discharge Summary Assessment (RN) Last Done: 11/07/23 10:42
== END 2023-11-07 12:20 | disposition home health service (06) ==
LOC: 3E 06:27 → ASU 06:27 → 2S 14:07

== ENCOUNTER 2024-09-14 15:35 | Inpatient (IN) ==
[2024-09-14 16:29] LABS: Basophils # (auto) 0.06 K/uL (0.00-0.20); Basophils % (auto) 0.6 %; Eosinophils # (auto) 0.22 K/uL (0.00-0.50); Eosinophils % (auto) 2.2 %; Hematocrit (blood only) 38.5 % (42.0-52.0); Hemoglobin 12.5 g/dl (14.0-18.0); Immature Granulocytes # (auto) 0.03 K/uL (0.01-0.20); Immature Granulocytes % (auto) 0.3 %; Mean Corpuscular Hgb Conc 32.5 g/dL (32.0-36.0); Mean Corpuscular Volume 92.5 fL (80.0-100.0); Mean Platelet Volume 10.2 fL (9.4-12.4); Neutrophils # (auto) 7.91 K/uL (1.40-6.50); Neutrophils % (auto) 78.9 %; Platelet Count 335 K/uL (130-400); RDW Coefficient of Variation 13.4 % (11.5-14.5); RDW Standard Deviation 45.7 fL (36.4-46.3); Red Blood Count 4.16 M/uL (4.70-6.10); White Blood Count 10.02 K/ul (4.8-10.8)
[2024-09-14 16:44] LABS: Albumin Globulin Ratio 1.3 (0.9-2); Albumin Level 4.3 gm/dl (3.4-5.0); BUN Creatinine Ratio 18.5 (10-20); Bilirubin,Total 0.3 mg/dl (0.2-1.0); Calcium 9.2 mg/dl (8.6-10.3); Creatinine Clr Calc Pharmacy 47.2 ml/min; Globulin 3.4 gm/dl (2.5-4.0); Potassium 5.2 mmol/L (3.5-5.1); Total Protein 7.7 gm/dl (6.0-8.3)
[2024-09-14] MEDS: MoRPHine SULFATE 4 MG/ML 1 ML CARP\\VIAL IV STA (19:46)
[2024-09-14] MEDS: SODIUM CHLORIDE 0.9% 1,000 ML IV SCH (19:49)
--- NOTE | 2024-09-14 20:17 | Emergency Department Note ---
Impression & Plan Cellulitis of third toe of right foot, Cellulitis of foot, right, Open wound of third toe of right foot ED Provider Note ED Provider Note NAME: MERCY CATHERINE AGE:68 SEX: Male : 1955 ARRIVES VIA: Private vehicle INFORMANT: Patient ED PROVIDER(s): Mona Noel DO CHIEF COMPLAINT: Pain at right third toe on right foot with redness HPI: This is a 68-year-old male presents emergency department due to concern for worsening pain and redness and possible infection of the third toe on his right foot extending into the right foot itself. Patient states he has had ongoing issues with his toes and does see podiatry. He states he was previously seeing podiatry for his great toe and then was given a diabetic shoe caused irritation to the third toe leading to a wound. He was also previously seen by vascular surgery and did have a procedure to improve circulation in his lower extremities. He denies that stents were placed. He is a diabetic and does have lower extremity neuropathy. His blood sugars have been more labile recently according to his . He states his toe was evaluated 2 weeks ago and debridement performed by podiatry. He states over the course of the last week he has had increased pain and swelling to the third toe, no drainage or bleeding, and now the redness seems to be spreading into his foot. He denies fevers or chills, nausea or vomiting. He denies any other joint pain. PAST MEDICAL HISTORY:See Below PAST SURGICAL HISTORY:See Below FAMILY HISTORY:See Below SOCIAL HISTORY:See Below HOME MEDICATIONS:See Below ALLERGIES:See Below VITALS:See Below PHYSICAL EXAMINATION: GENERAL: alert, uncomfortable appearing, well nourished, no distress, non-toxic EYE EXAM: normal conjunctiva, PERRL and EOM's grossly intact OROPHARYNX: no exudate, no erythema, lips, buccal mucosa, and tongue normal and mucous membranes are moist NECK: supple, no nuchal rigidity, no adenopathy, non-tender LUNGS: Clear to auscultation. Normal chest wall mechanics, no w/r/r HEART: no murmurs, S1 normal and S2 normal ABDOMEN: abdomen soft, non-tender, normo-active bowel sounds, no masses, no rebound or guarding. SKIN: no rashes, petechiae, orbruising UPPER EXTREMITIES: upper extremities are grossly normal. FROM, nml pulses b/l. LOWER EXTREMITIES: No pitting edema. FROM, decreased pulses bilaterally, right third toe with eschar along the distal dorsal aspect with surrounding edema and erythema which extends into the dorsal foot, no drainage or bleeding from the right third toe; decreased sensation to the distal lower extremities and feet bilaterally consistent with his history of neuropathy NEURO EXAM: Normal sensorium, cranial nerves II-XII grossly intact, normal speech, no facial droop,nogross weakness of arms, no gross weakness of legs. Gross sensation intact. No ataxia. Vital Signs: reviewed and remarkable Differential Diagnosis: Cellulitis, abscess, deep space infection, osteomyelitis, tenosynovitis, necrotizing fasciitis, diabetic neuropathy, as well as others were considered MEDICAL DECISION MAKING: This is a 68-year-old male presents emergency department due to concern for increased pain at the third toe and foot on the right. Patient a known diabetic with ongoing issues with wounds on the right foot. He was afebrile and hemodynamically stable on arrival. Labs drawn and sent, IV established, x-ray performed at bedside interpreted by me and he was monitored on telemetry. Patient started on IV fluids and given IV morphine and IV Tylenol for pain. Due to concerning findings on physical exam and high risk of osteomyelitis, blood cultures added and patient started on IV antibiotics. Patient's labs here are reassuring. Case discussed with the hospitalist team for additional evaluation and management. Consultation(s): 2199: Discussed with Dr. Zacarias, [facility] hospitalist team, for additional evaluation and management. ER Treatment Provided: See below Diagnostics Interpreted By Me: -Cardiac Monitoring: An order was placed for continuous cardiac monitoring. The monitor shows a rate of 72 with normal sinus rhythm. -Laboratory studies: As stated above and show below. -Imaging studies: X-ray foot: No obvious fracture or dislocation, no obvious changes to suggest osteo- Triage Nursing Note Reviewed Prior/Outside Records Reviewed Past Med/Surg History Problem List (Updated 09/15/24 @ 13:27 by Afshin Morales DPM) Open wound of third toe of right foot (Acute) Cellulitis of foot, right (Acute) Cellulitis of third toe of right foot (Acute) Traumatic ecchymosis of toe (Acute) Pain in toe of right foot (Acute) Resistant hypertension Open wound of right ankle (Acute) Poorly-controlled hypertension Carotid artery stenosis left carotid endarterectomy 07/2023 Abnormal ankle brachial index (DIANNE) (Acute) Diabetic ulcer of right great toe (Acute) Diabetic peripheral neuropathy associated with type 2 diabetes mellitus Status post right knee replacement Hyperkalemia Arthritis of right knee Dyslipidemia Chronic kidney disease, stage 3b Hypertension Type 2 diabetes mellitus Organic impotence (Acute) Vitamin D deficiency Medical History History of kidney injury Calculus of kidney in male Orchalgia Spermatocele Surgical History History of total right knee replacement History of carotid endarterectomy 07/2023, Lopez Yousif History of cardiac cath [employer] [facility] many years ago, unsure of date, no stents History of kidney surgery lithotripsy Family History Aunt Diabetes Uncle Diabetes Social History Smoking Status: Former smoker Age Quit Using Tobacco: 30; Second Hand Exposure: No; Do You Dip or Chew Tobacco: No; Hx Alcohol Use: No Hx Substance Use: No Preferred Language: Chinese Communication Ability: Effective Visual Impairment: Limited Hearing Ability: Hard of Hearing Fishing Boat Mate Required: No Beliefs That Will Affect Care: None marital status: Current Living Situation: Spouse Feels Safe at Home: Yes Diet: regular caffeine: Yes Assistive Devices: Special Shoe Allergies Allergies Allergy/AdvReac Type Severity Reaction Status Date / Time latex Allergy Severe Blister Verified 09/14/24 14:46 amoxicillin AdvReac Intermediate Vomiting Verified 09/14/24 14:46 clavulanic acid AdvReac Intermediate Vomiting Verified 09/14/24 14:46 [From Augmentin] Home Meds Home Medications Medication Instructions Recorded Confirmed atorvastatin 20 mg tablet 20 mg PO QPM 03/03/23 09/14/24 blood sugar diagnostic (OneTouch 03/03/23 09/14/24 Ultra Test strips) pen needle, diabetic 31 gauge x 03/03/23 09/14/24 5/16" (BD Ultra-Fine Short Pen Needle) carvedilol 25 mg tablet 25 mg PO BID 03/05/23 09/14/24 metformin 1,000 mg tablet 1,000 mg PO BID 04/18/23 09/14/24 blood-glucose sensor (FreeStyle 05/13/23 09/14/24 Darnell 3 Sensor device) glucagon 1 mg/0.2 mL subcutaneous 1 mg subcut UD PRN prn 05/13/23 09/14/24 auto-injector insulin glargine 100 unit/mL (3 20 unit subcut AMPM 05/13/23 09/14/24 mL) subcutaneous pen (Lantus Solostar U-100 Insulin) amlodipine 10 mg tablet 10 mg PO QAM 09/14/24 09/14/24 aspirin 81 mg chewable tablet 81 mg PO QAM 09/14/24 09/14/24 insulin aspart U-100 100 unit/mL 0 unit subcut TID 09/14/24 09/14/24 (3 mL) subcutaneous pen (Novolog FlexPen U-100 Insulin aspart) losartan 100 mg tablet 100 mg PO QAM 09/14/24 09/14/24 sodium zirconium cyclosilicate 10 10 g PO WK 09/14/24 09/14/24 gram oral powder packet (Lokelma) Previous Rx's Medication Instructions Recorded gabapentin 300 mg capsule 300 mg PO QID #120 caps 08/23/24 Results & Data (ED) Vital Signs Vital Signs - 24 hr 09/14/24 15:41 09/14/24 19:17 Temperature 36.5 C Temperature Source Skin Pulse Rate 81 Pulse Rate [Finger] 70 Respiratory Rate 19 18 Respiratory Effort / Characteristics Non-Labored Spontaneous Non-Labored Spontaneous Respiratory Depth Normal Normal Respiratory Pattern Regular Regular Blood Pressure 199/82 H Blood Pressure [Right Arm] 160/86 H Blood Pressure Mean 121 Blood Pressure Mean [Right Arm] 110 Pulse Oximetry 95 99 Oxygen Delivery Method Room Air Room Air Sepsis Recent Fever Within 48 Hours No Sepsis New/Unexplained Change in Mental Status No Sepsis Action Taken by Nursing No Action Required Laboratory Data 09/15/24 05:57 09/15/24 05:57 Lab Results 09/14/24 Range/Units 16:06 WBC 10.02 (4.8-10.8) K/ul RBC 4.16 L (4.70-6.10) M/uL Hgb 12.5 L (14.0-18.0) g/dl Hct 38.5 L (42.0-52.0) % MCV 92.5 (80.0-100.0) fL MCH 30.0 (25.0-34.0) pg MCHC 32.5 (32.0-36.0) g/dL RDW Std Deviation 45.7 (36.4-46.3) fL RDW Coeff of Flavia 13.4 (11.5-14.5) % Plt Count 335 (130-400) K/uL MPV 10.2 (9.4-12.4) fL Immature Gran % (Auto) 0.3 % Neut % (Auto) 78.9 % Lymph % (Auto) 8.0 % Wagoner % (Auto) 10.0 % Eos % (Auto) 2.2 % Baso % (Auto) 0.6 % Neut # (Auto) 7.91 H (1.40-6.50) K/uL Lymph # (Auto) 0.80 L (1.20-3.40) K/uL Wagoner # (Auto) 1.00 H (0.11-0.59) K/uL Eos # (Auto) 0.22 (0.00-0.50) K/uL Baso # (Auto) 0.06 (0.00-0.20) K/uL Immature Gran # (Auto) 0.03 (0.01-0.20) K/uL Sodium 137 (136-145) mmol/L Potassium 5.2 H (3.5-5.1) mmol/L Chloride 107 (98-107) mmol/L Carbon Dioxide 24 (21-32) mmol/L Anion Gap 6 (3-11) BUN 31 H (6-23) mg/dl Creatinine 1.68 H (0.6-1.4) mg/dl Est Cr Clr Drug Dosing 47.2 ml/min eGFR 43.45 BUN/Creatinine Ratio 18.5 (10-20) Glucose 168 H (70-99(Fasting)) mg/dl Calcium 9.2 (8.6-10.3) mg/dl Total Bilirubin 0.3 (0.2-1.0) mg/dl AST 13 (13-39) U/L ALT 9 (7-52) U/L Alkaline Phosphatase 87 (34-104) U/L Total Protein 7.7 (6.0-8.3) gm/dl Albumin 4.3 (3.4-5.0) gm/dl Globulin 3.4 (2.5-4.0) gm/dl Albumin/Globulin Ratio 1.3 (0.9-2) Procalcitonin 0.02 (0-0.5) ng/ml Administered Medications Acetaminophen (Acetaminophen 500 Mg Tab) 1,000 mg PO Q8H PRN PRN Reason: Pain Stop: 10/15/24 16:01 Last Admin: 09/15/24 16:41 Dose: 1,000 mg Documented By: [facility] Amlodipine Besylate (Amlodipine Besylate 5 Mg Tab) 10 mg PO QAM [facility] Stop: 10/15/24 08:59 Last Admin: 09/15/24 09:07 Dose: 10 mg Documented By: JOHN PAUL Aspirin (Aspirin 81 Mg Chew) 81 mg PO QAM [facility] Stop: 10/15/24 08:59 Last Admin: 09/15/24 09:07 Dose: 81 mg Documented By: [facility] [place] Atorvastatin Calcium (Atorvastatin 20 Mg Tab) 20 mg PO QPM ILE[facility] Stop: 10/15/24 20:59 Last Admin: 09/15/24 20:39 Dose: 20 mg Documented By: ORTIZ Carvedilol (Carvedilol 25 Mg Tab) 25 mg PO BID I[facility] Stop: 10/15/24 08:59 Last Admin: 09/15/24 20:39 Dose: 25 mg Documented By: Admin: 09/15/24 09:08 Dose: 25 mg Documented By: [facility] [place] Gabapentin (Gabapentin 300 Mg Cap) 300 mg PO QID ILEANA Stop: 10/15/24 08:59 Last Admin: 09/15/24 20:39 Dose: 300 mg Documented By: Admin: 09/15/24 18:36 Dose: 300 mg Documented By: Admin: 09/15/24 13:26 Dose: 300 mg Documented By: Admin: 09/15/24 09:08 Dose: 300 mg Documented By: [facility] [place] Heparin Sodium (Porcine) (Heparin Sod 5,000 Unit/0.5 Ml Vial) 5,000 units SQ Q12 ILEANA Stop: 10/15/24 08:59 Last Admin: 09/15/24 20:40 Dose: 5,000 units Documented By: Admin: 09/15/24 09:08 Dose: 5,000 units Documented By: JOHN PAUL Daptomycin 450 mg/ Syringe 9 mls @ 4.5 mls/min IV Q24H ILEANA; Protocol Stop: 10/26/24 22:59 Last Admin: 09/15/24 22:58 Dose: 4.5 mls/min Documented By: Admin: 09/14/24 23:37 Dose: 4.5 mls/min Documented By: ELISABETH Cefepime HCl (Maxipime 2000mg) 2,000 mg in 20 mls @ 5 mls/min IV Q12H ILEANA; Protocol Stop: 10/27/24 08:59 Last Admin: 09/15/24 20:43 Dose: 5 mls/min Documented By: Admin: 09/15/24 09:07 Dose: 5 mls/min Documented By: JOHN PAUL Insulin Aspart (Insulin Aspart Per Unit Charge) 0 units SC ACHS [facility] Stop: 10/15/24 07:29 Last Admin: 09/15/24 20:40 Dose: 3 units Documented By: ORTIZ Co-signed By: fruit or nut picker: 09/15/24 18:33 Dose: Not Given Documented By: Admin: 09/15/24 13:14 Dose: 3 units Documented By: JESSICA Co-signed By: PATRICIA Admin: 09/15/24 10:06 Dose: 1 units Documented By: JOHN PAUL Co-signed By: LYNSEY Insulin Glargine (Lantus Per Unit Charge) 20 units SQ BID [facility] Stop: 10/15/24 08:59 Last Admin: 09/15/24 20:40 Dose: 20 units Documented By: ORTIZ Co-signed By: fruit or nut picker: 09/15/24 10:06 Dose: 20 units Documented By: JOHN PAUL Co-signed By: LYNSEY Losartan Potassium (Losartan Potassium 50 Mg Tab) 100 mg PO QAM [facility] Stop: 10/15/24 08:59 Last Admin: 09/15/24 09:07 Dose: 100 mg Documented By: JOHN PAUL Morphine Sulfate (Morphine Sulfate 4 Mg/Ml 1 Ml Carp\\Vial) 4 mg IV Q1H PRN PRN Reason: Pain Stop: 09/28/24 19:57 Last Admin: 09/15/24 13:26 Dose: 4 mg Documented By: Admin: 09/15/24 10:56 Dose: 4 mg Documented By: JOHN PAUL Admin: 09/15/24 03:44 Dose: 4 mg Documented By: Admin: 09/14/24 21:52 Dose: 4 mg Documented By: Admin: 09/14/24 20:28 Dose: 4 mg Documented By: MARY Ondansetron HCl (Ondansetron Inj 2 Mg/Ml 2 Ml Vial) 4 mg IV Q6H PRN PRN Reason: Nausea Stop: 10/15/24 01:39 Last Admin: 09/15/24 16:03 Dose: 4 mg Documented By: BMKhadra Discontinued Medications Sodium Chloride (Nss) 1,000 mls @ 125 mls/hr IV .Q8H ILEANA Stop: 09/15/24 19:44 Last Infusion: 09/15/24 21:29 Dose: Infused Documented By: Admin: 09/15/24 13:14 Dose: 125 mls/hr Documented By: Infusion: 09/15/24 11:42 Dose: Infused Documented By: Admin: 09/15/24 03:42 Dose: 125 mls/hr Documented By: Infusion: 09/15/24 03:42 Dose: Infused Documented By: Admin: 09/14/24 19:49 Dose: 125 mls/hr Documented By: MARY Ceftriaxone Sodium (Rocephin) 2,000 mg in 50 mls @ 100 mls/hr IV NOW STA Stop: 09/14/24 20:21 Last Infusion: 09/14/24 21:43 Dose: Infused Documented By: Admin: 09/14/24 20:56 Dose: 100 mls/hr Documented By: MARY Acetaminophen (Ofirmev) 1,000 mg in 100 mls @ 400 mls/hr IV NOW STA Stop: 09/14/24 20:12 Last Infusion: 09/14/24 20:46 Dose: Infused Documented By: Admin: 09/14/24 20:31 Dose: 400 mls/hr Documented By: MARY Vancomycin HCl 1,750 mg/ (Sodium Chloride) 535 mls @ 200 mls/hr IV NOW ONE Stop: 09/14/24 23:41 Last Admin: 09/14/24 22:13 Dose: Not Given Documented By: YOKO Cefepime HCl (Maxipime 2000mg) 2,000 mg in 20 mls @ 5 mls/min IV NOW STA; Protocol Stop: 09/14/24 22:13 Last Admin: 09/14/24 22:16 Dose: 5 mls/min Documented By: YOKO Morphine Sulfate (Morphine Sulfate 4 Mg/Ml 1 Ml Carp\\Vial) 4 mg IV NOW STA Stop: 09/14/24 19:42 Last Admin: 09/14/24 19:46 Dose: 4 mg Documented By: GCC Imaging Data Radiologist's Impression: Foot X-Ray 09/14/24 19:19 Exam(s): XR RIGHT FOOT, 3+ views EXAM: XR Right Foot Complete, 3 or More Views CLINICAL HISTORY: Toe infection. TECHNIQUE: Frontal, lateral and oblique views of the right foot. COMPARISON: No relevant prior studies available. FINDINGS: Bones/joints: Plantar calcaneal bone spur. No acute fracture. No dislocation. There are changes second proximal interphalangeal joint. No bone erosion or destruction. No periosteal reaction. Soft tissues: Aspirin calcifications. No radiopaque foreign body. IMPRESSION: No x-ray evidence for osteomyelitis. No changes second digit proximal interphalangeal joint. Vascular calcifications. Electronically signed by: Ten Brand M.D. 09/14/24 21:53 PM Discharge Plan Visit Data Chief Complaint: Foot Injury/Pain Stated Complaint: RT FOOT 3RD TOE MIGHT NEED AMPUTATED ED Provider: Mona Noel Discharge Problem: Cellulitis of third toe of right foot, Cellulitis of foot, right, Open wound of third toe of right foot Patient Disposition: Admitted As Inpatient Discharge Instructions Interventions: ED Discharge Assessment Last Done: 09/15/24 01:41 Discharge Problem: Open wound of third toe of right foot Qualifiers: Encounter type: initial encounter Qualified Code(s): S91.104A - Unspecified open wound of right lesser toe(s) without damage to nail, initial encounter
[2024-09-14] MEDS: MoRPHine SULFATE 4 MG/ML 1 ML CARP\\VIAL IV PRN (20:28)
[2024-09-14] MEDS: ACETAMINOPHEN 1,000 MG/100 ML VIAL IV STA (20:31)
[2024-09-14] MEDS: cefTRIAXone SODIUM 2,000 MG/50 ML BAG IV STA (20:56)
[2024-09-14] MEDS ORDERED: VANCOMYCIN CONSULT ACTIVE PRN (21:01)
--- NOTE | 2024-09-14 21:54 | XRay Report ---
Exam(s): XR RIGHT FOOT, 3+ views EXAM: XR Right Foot Complete, 3 or More Views CLINICAL HISTORY: Toe infection. TECHNIQUE: Frontal, lateral and oblique views of the right foot. COMPARISON: No relevant prior studies available. FINDINGS: Bones/joints: Plantar calcaneal bone spur. No acute fracture. No dislocation. There are changes second proximal interphalangeal joint. No bone erosion or destruction. No periosteal reaction. Soft tissues: Aspirin calcifications. No radiopaque foreign body. IMPRESSION: No x-ray evidence for osteomyelitis. No changes second digit proximal interphalangeal joint. Vascular calcifications. Electronically signed by: Ten Brand M.D. 09/14/24 21:53 PM
[2024-09-14] MEDS: VANCOMYCIN HCL 1,750 MG in SODIUM CHLORIDE 0.9% 500 ML IV ONE (22:13)
[2024-09-14] MEDS: CEFEPIME 2000MG 2,000 MG/20 ML SYR IV STA (22:16)
--- NOTE | 2024-09-14 22:21 | History & Physical Report ---
Date of Service September 14, 2024 Assessment & Plan (1) Open wound of third toe of right foot: (2) Cellulitis of third toe of right foot: (3) Diabetic ulcer of right great toe: (4) Chronic kidney disease, stage 3b: Plan The patient is a 68-year-old male with past medical history including hypertension, carotid artery stenosis, PAD status post angioplasty, hyperkalemia, CKD stage IIIb, vitamin D deficiency, status post CEA, hyperlipidemia, diabetes mellitus insulin requiring, peripheral neuropathy, and obesity. The patient presents to the emergency department with complaint of worsening pain and redness in right third toe over the past few days, initially again over a few weeks ago. He reports that his symptoms had worsened after having some debridement performed in the outpatient setting a few weeks ago. He reports his blood sugars have been more labile during his interval time as well. In the emergency department, he was found to have x-ray suggesting right third toe osteomyelitis, with pain improvement with morphine sulfate IV. He was started on vancomycin IV and ceftriaxone IV, and we changed to daptomycin IV and cefepime IV. Right third toe diabetic ulcer/cellulitis- Per patient pain and redness has been worsening over the past few days, in particular after recent debridement a few weeks ago Daptomycin 450 mg IV daily Cefepime 2 g IV every 12 hours Consult podiatry Consult wound care PAD- Patient describes a procedure where angioplasty has been performed of right lower extremity to improve circulation for healing CKD stage IIIb- Creatinine 1.68, with base 1.88 Follow serially Hypertension- Continue amlodipine, aspirin, carvedilol, losartan Diabetes mellitus- Hold metformin continue glargine 20 and SQ twice daily Check hemoglobin A1c Chronic medical issues: Hyperlipidemia-continue atorvastatin Peripheral neuropathy-continue gabapentin History of Present Illness Chief Complaint: The patient presents to the emergency department with complaint of worsening pain and redness in right third toe over the past few days, initially again over a few weeks ago. He reports that his symptoms had worsened after having some debridement performed in the outpatient setting a few weeks ago. He reports his blood sugars have been more labile during his interval time as well. Primary Care Provider: Elisabet Stevenson PA-C The patient is a 68-year-old male with past medical history including hypertension, carotid artery stenosis, PAD status post angioplasty, hyperkalemia, CKD stage IIIb, vitamin D deficiency, status post CEA, hyperlipidemia, diabetes mellitus insulin requiring, peripheral neuropathy, and obesity. The patient presents to the emergency department with complaint of worsening pain and redness in right third toe over the past few days, initially again over a few weeks ago. He reports that his symptoms had worsened after having some debridement performed in the outpatient setting a few weeks ago. He reports his blood sugars have been more labile during his interval time as well. In the emergency department, he was found to have x-ray without suggesting right third toe osteomyelitis, with pain improvement with morphine sulfate IV. He was started on vancomycin IV and ceftriaxone IV, and we changed to daptomycin IV and cefepime IV. Allergies Allergy/AdvReac Type Severity Reaction Status Date / Time latex Allergy Severe Blister Verified 09/14/24 14:46 amoxicillin AdvReac Intermediate Vomiting Verified 09/14/24 14:46 clavulanic acid AdvReac Intermediate Vomiting Verified 09/14/24 14:46 [From Augmentin] Home Medications Medication Instructions Recorded Confirmed Type atorvastatin 20 mg tablet 20 mg PO QPM 03/03/23 09/14/24 History blood sugar diagnostic (OneTouch 03/03/23 09/14/24 History Ultra Test strips) pen needle, diabetic 31 gauge x 03/03/23 09/14/24 History 5/16" (BD Ultra-Fine Short Pen Needle) carvedilol 25 mg tablet 25 mg PO BID 03/05/23 09/14/24 History metformin 1,000 mg tablet 1,000 mg PO BID 04/18/23 09/14/24 History blood-glucose sensor (FreeStyle 05/13/23 09/14/24 History Darnell 3 Sensor device) glucagon 1 mg/0.2 mL subcutaneous 1 mg subcut UD PRN prn 05/13/23 09/14/24 History auto-injector insulin glargine 100 unit/mL (3 20 unit subcut AMPM 05/13/23 09/14/24 History mL) subcutaneous pen (Lantus Solostar U-100 Insulin) gabapentin 300 mg capsule 300 mg PO QID #120 caps 08/23/24 09/14/24 Rx amlodipine 10 mg tablet 10 mg PO QAM 09/14/24 09/14/24 History aspirin 81 mg chewable tablet 81 mg PO QAM 09/14/24 09/14/24 History insulin aspart U-100 100 unit/mL 0 unit subcut TID 09/14/24 09/14/24 History (3 mL) subcutaneous pen (Novolog FlexPen U-100 Insulin aspart) losartan 100 mg tablet 100 mg PO QAM 09/14/24 09/14/24 History sodium zirconium cyclosilicate 10 10 g PO WK 09/14/24 09/14/24 History gram oral powder packet (Lokelma) Past Med/Surg History Problem List (Updated 09/14/24 @ 20:20 by Mona Noel DO) Open wound of third toe of right foot (Acute) Cellulitis of foot, right (Acute) Cellulitis of third toe of right foot (Acute) Traumatic ecchymosis of toe (Acute) Pain in toe of right foot (Acute) Resistant hypertension Open wound of right ankle (Acute) Poorly-controlled hypertension Carotid artery stenosis left carotid endarterectomy 07/2023 Abnormal ankle brachial index (DIANNE) (Acute) Diabetic ulcer of right great toe (Acute) Diabetic peripheral neuropathy associated with type 2 diabetes mellitus Status post right knee replacement Hyperkalemia Arthritis of right knee Dyslipidemia Chronic kidney disease, stage 3b Hypertension Type 2 diabetes mellitus Organic impotence (Acute) Vitamin D deficiency Medical History History of kidney injury Calculus of kidney in male Orchalgia Spermatocele Surgical History History of total right knee replacement History of carotid endarterectomy History of cardiac cath History of kidney surgery Family History Aunt Diabetes Uncle Diabetes Social History Smoking Status: Former smoker Age Quit Using Tobacco: 30; Second Hand Exposure: No; Do You Dip or Chew Tobacco: No; Hx Alcohol Use: No Hx Substance Use: No Preferred Language: Lao Communication Ability: Effective Visual Impairment: Limited Hearing Ability: Hard of Hearing Livestock Rancher Required: No Beliefs That Will Affect Care: None marital status: Current Living Situation: Spouse Feels Safe at Home: Yes Safety Concerns: Feels Safe At This Time Diet: regular caffeine: Yes Assistive Devices: Denture - Upper, Denture - Lower and Glasses Review of Systems Review of Systems: The patient denies chest pain, palpitations, shortness of breath, dyspnea on exertion, cough, sore throat, fevers, chills, sweats, weight change, fatigue, nausea, vomiting, diarrhea , constipation, abdominal pain, pelvic pain, blood in urine or stool, dysuria, urinary frequency or urgency, lightheadedness, dizziness, headache, memory loss, loss of consciousness, focal or generalized weakness, numbness or tingling in arms, generalized arthralgias or myalgias, back or neck pain, or night sweats. The review of systems is otherwise negative other than for that already noted above, and at least 10 systems have been reviewed. Physical Exam Physical Exam: The patient is awake, alert and oriented 3, well developed and well nourished, normocephalic and atraumatic, lying in bed and in no acute distress. HEENT--PERRL, EOMI, mucous membranes and oropharynx dry. Neck--supple. No JVD. No bruits. Thyroid normal, trachea midline, no adenopathy. Heart--normal S1 and S2. No murmurs, rubs or gallops. Lungs--clear bilaterally, no respiratory distress, no accessory muscle use. Abdomen--normal bowel sounds and soft. Nontender. Nondistended, no hernias or masses, no organomegaly. Extremities--right third toe with dry gangrene/moderate erythema fci to dorsum of foot Dermatologic--normal except for right foot as noted Neurologic--cranial nerves II through XII grossly intact. Rheumatologic--normal range of motion except for right foot Psychiatric--normal affect. Results & Data Results & Data Vital Signs (Past 12 Hours) Vital Signs Temp Pulse Pulse Resp BP BP Pulse Ox 09/14/24 22:00 69 18 164/74 H 93 09/14/24 21:00 67 18 152/68 H 95 09/14/24 19:17 70 18 160/86 H 99 09/14/24 15:41 36.5 C 81 19 199/82 H 95 O2 Del Method 09/14/24 22:00 Room Air 09/14/24 21:00 Room Air 09/14/24 19:17 Room Air 09/14/24 15:41 Room Air Laboratory Results Laboratory Results WBC 10.02 K/ul (4.8-10.8) 09/14/24 16:06 RBC 4.16 M/uL (4.70-6.10) L 09/14/24 16:06 Hgb 12.5 g/dl (14.0-18.0) L 09/14/24 16:06 Hct 38.5 % (42.0-52.0) L 09/14/24 16:06 MCV 92.5 fL (80.0-100.0) 09/14/24 16:06 MCH 30.0 pg (25.0-34.0) 09/14/24 16:06 MCHC 32.5 g/dL (32.0-36.0) 09/14/24 16:06 RDW Std Deviation 45.7 fL (36.4-46.3) 09/14/24 16:06 RDW Coeff of Flavia 13.4 % (11.5-14.5) 09/14/24 16:06 Plt Count 335 K/uL (130-400) 09/14/24 16:06 MPV 10.2 fL (9.4-12.4) 09/14/24 16:06 Immature Gran % (Auto) 0.3 % 09/14/24 16:06 Neut % (Auto) 78.9 % 09/14/24 16:06 Lymph % (Auto) 8.0 % 09/14/24 16:06 [place] % (Auto) 10.0 % 09/14/24 16:06 Eos % (Auto) 2.2 % 09/14/24 16:06 Baso % (Auto) 0.6 % 09/14/24 16:06 Neut # (Auto) 7.91 K/uL (1.40-6.50) H 09/14/24 16:06 Lymph # (Auto) 0.80 K/uL (1.20-3.40) L 09/14/24 16:06 [place] # (Auto) 1.00 K/uL (0.11-0.59) H 09/14/24 16:06 Eos # (Auto) 0.22 K/uL (0.00-0.50) 09/14/24 16:06 Baso # (Auto) 0.06 K/uL (0.00-0.20) 09/14/24 16:06 Immature Gran # (Auto) 0.03 K/uL (0.01-0.20) 09/14/24 16:06 Sodium 137 mmol/L (136-145) 09/14/24 16:06 Potassium 5.2 mmol/L (3.5-5.1) H 09/14/24 16:06 Chloride 107 mmol/L (98-107) 09/14/24 16:06 Carbon Dioxide 24 mmol/L (21-32) 09/14/24 16:06 Anion Gap 6 (3-11) 09/14/24 16:06 BUN 31 mg/dl (6-23) H 09/14/24 16:06 Creatinine 1.68 mg/dl (0.6-1.4) H 09/14/24 16:06 Est Cr Clr Drug Dosing 47.2 ml/min 09/14/24 16:06 eGFR 43.45 09/14/24 16:06 BUN/Creatinine Ratio 18.5 (10-20) 09/14/24 16:06 Glucose 168 mg/dl (70-99(Fasting)) H 09/14/24 16:06 Calcium 9.2 mg/dl (8.6-10.3) 09/14/24 16:06 Total Bilirubin 0.3 mg/dl (0.2-1.0) 09/14/24 16:06 AST 13 U/L (13-39) 09/14/24 16:06 ALT 9 U/L (7-52) 09/14/24 16:06 Alkaline Phosphatase 87 U/L (34-104) 09/14/24 16:06 Total Protein 7.7 gm/dl (6.0-8.3) 09/14/24 16:06 Albumin 4.3 gm/dl (3.4-5.0) 09/14/24 16:06 Globulin 3.4 gm/dl (2.5-4.0) 09/14/24 16:06 Albumin/Globulin Ratio 1.3 (0.9-2) 09/14/24 16:06 Procalcitonin 0.02 ng/ml (0-0.5) 09/14/24 16:06 Impressions Foot X-Ray 09/14/24 19:19 Exam(s): XR RIGHT FOOT, 3+ views EXAM: XR Right Foot Complete, 3 or More Views CLINICAL HISTORY: Toe infection. TECHNIQUE: Frontal, lateral and oblique views of the right foot. COMPARISON: No relevant prior studies available. FINDINGS: Bones/joints: Plantar calcaneal bone spur. No acute fracture. No dislocation. There are changes second proximal interphalangeal joint. No bone erosion or destruction. No periosteal reaction. Soft tissues: Aspirin calcifications. No radiopaque foreign body. IMPRESSION: No x-ray evidence for osteomyelitis. No changes second digit proximal interphalangeal joint. Vascular calcifications. Electronically signed by: Ten Brand M.D. 09/14/24 21:53 PM Code Status & VTE Plan Code Status Full code VTE Prophylaxis Plan VTE Prophylaxis will be ordered: Yes PG Care Time/CCT Total # of Minutes Spent Total Time Spent with Patient: Total time spent is greater than 50% in coordination of care (as documented) at patient's floor/unit and/or counseling patient: Coding Level of Care Code 82437 INT INP/OBS CARE 3/75MIN Diagnoses Open wound of third toe of right foot S91.104A Cellulitis of third toe of right foot L03.031 Diabetic ulcer of right great toe E11.621; L97.519 Chronic kidney disease, stage 3b N18.32
[2024-09-14] MEDS: DAPTOmycin 450 MG in SYRINGE 0 ML IV SCH (23:37)
[2024-09-15] MEDS ORDERED: GLUCOSE 40% GEL 15 GM TUBE PO PRN (01:40)
[2024-09-15] MEDS ORDERED: ACETAMINOPHEN 325 MG TAB PO PRN (01:40)
[2024-09-15] MEDS ORDERED: DEXTROSE 50% 50 ML SYRINGE IV PRN (01:40)
[2024-09-15] MEDS ORDERED: CARBOHYDRATES FOR HYPOGLYCEMIA PO PRN (01:40)
[2024-09-15] MEDS ORDERED: GLUCOSE 10 TAB/TUBE PO PRN (01:40)
[2024-09-15] MEDS ORDERED: GLUCAGON FOR INJ 1 MG VIAL SQ PRN (01:40)
[2024-09-15 06:38] LABS: Basophils # (auto) 0.03 K/uL (0.00-0.20); Basophils % (auto) 0.4 %; Eosinophils # (auto) 0.26 K/uL (0.00-0.50); Eosinophils % (auto) 3.8 %; Hematocrit (blood only) 32.4 % (42.0-52.0); Hemoglobin 10.5 g/dl (14.0-18.0); Immature Granulocytes # (auto) 0.03 K/uL (0.01-0.20); Immature Granulocytes % (auto) 0.4 %; Mean Corpuscular Hgb Conc 32.4 g/dL (32.0-36.0); Mean Corpuscular Volume 92.6 fL (80.0-100.0); Mean Platelet Volume 10.1 fL (9.4-12.4); Neutrophils # (auto) 4.81 K/uL (1.40-6.50); Neutrophils % (auto) 69.4 %; Platelet Count 279 K/uL (130-400); RDW Coefficient of Variation 13.3 % (11.5-14.5); RDW Standard Deviation 44.8 fL (36.4-46.3); White Blood Count 6.93 K/ul (4.8-10.8)
[2024-09-15 07:09] LABS: Albumin Globulin Ratio 1.3 (0.9-2); Albumin Level 3.3 gm/dl (3.4-5.0); BUN Creatinine Ratio 16.8 (10-20); Bilirubin,Total 0.3 mg/dl (0.2-1.0); Calcium 7.9 mg/dl (8.6-10.3); Creatinine Clr Calc Pharmacy 55.4 ml/min; Globulin 2.6 gm/dl (2.5-4.0); Magnesium 1.7 mg/dl (1.7-2.4); Potassium 4.7 mmol/L (3.5-5.1); Total Protein 5.9 gm/dl (6.0-8.3)
[2024-09-15] MEDS ORDERED: NON-FORMULARY MEDICATION (Insulin Aspart U-100 [Novolog Flexpen U-100 Insulin] 100 unit/mL SQ SCH (09:00)
[2024-09-15] MEDS: LOSARTAN POTASSIUM 50 MG TAB PO SCH (09:07)
[2024-09-15] MEDS: CEFEPIME 2000MG 2,000 MG/20 ML SYR IV SCH (09:07)
[2024-09-15] MEDS: amLODIPine BESYLATE 5 MG TAB PO SCH (09:07)
[2024-09-15] MEDS: ASPIRIN 81 MG CHEW PO SCH (09:07)
[2024-09-15] MEDS: carvediloL 25 MG TAB PO SCH (09:08)
[2024-09-15] MEDS: GABAPENTIN 300 MG CAP PO SCH (09:08)
[2024-09-15] MEDS: HEPARIN SOD 5,000 UNIT/0.5 ML VIAL SQ SCH (09:08)
[2024-09-15] MEDS: INSULIN ASPART PER UNIT CHARGE SC SCH (10:06)
[2024-09-15] MEDS: LANTUS PER UNIT CHARGE SQ SCH (10:06)
--- NOTE | 2024-09-15 12:00 | Hospitalist Progress Note ---
Date of Service September 15, 2024 Assessment & Plan (1) Open wound of third toe of right foot: Plan: Right third toe diabetic ulcer/cellulitis- Daptomycin 450 mg IV daily Cefepime 2 g IV every 12 hours Consult podiatry pending Consult wound care (2) Cellulitis of third toe of right foot: Plan: Daptomycin 450 mg IV daily Cefepime 2 g IV every 12 hours (3) Chronic kidney disease, stage 3b: Plan: Creatinine 1.68, with base 1.88 Follow serially Plan Diabetes mellitus- Hold metformin continue glargine 20 and SQ twice daily Check hemoglobin A1c Chronic medical issues: Hyperlipidemia-continue atorvastatin Peripheral neuropathy-continue gabapentin Admission and Anticipated Discharge Date Admission Date: September 14, 2024 Subjective No events overnight. Pt resting comfortably in bed. Review of Systems Review of Systems: CONST: Negative for fever, body aches and chills. HENT: Negative for neck pain/stiffness, headache, congestion, sore throat, swelling. EYES: Negative for discharge/pain or vision changes. RESP: Negative for cough/hemoptysis and shortness of breath. CV: Negative chest pain, difficulty breathing, palpitations. ABD: Negative pain, nausea, vomiting. : Negative increase frequency, dysuria, blood in urine or stool. MUSC: Negative for muscle aches, edema. SKIN: Negative rash, lesions/sores. NEURO: Negative headache, dizziness, weakness. Physical Exam Physical Exam: GENERAL APPEARANCE NAD, activity normal for age, well developed/ well nourished, no cyanosis, pallor, or diaphoresis. EYES lids/conjunctiva normal. EARS/NOSE/THROAT Mucous membranes moist, nares normal, lips/teeth normal uvula midline without oral pharyngeal erythema, exudate or swelling TMs normal bilaterally. No lymphangitis/lymphedema. HEAD/NECK normocephalic atraumatic, no facial trauma, neck is supple. RESPIRATORY respiratory effort normal, speaks in full sentences, no tripod position, no accessory muscle use. Lungs clear to auscultation without rhonchi, wheezes, rales CARDIAC Regular rate and rhythm, no edema. ABDOMINAL Soft, ND/NT. No evidence of fluid wave. No pulsatile masses on exam, rebound tenderness, Pimentel sign or pain over Mcburney's point. MUSCLES/EXTREMITIES No abnormal range of motion, no swelling. Right 3rd toe gangrene SKIN Warm, pink and dry. No rashes, dermatoses, petechiae or lesions. NEUROLOGICAL Speech is clear and appropriate. Normal level of consciousness. Gait and coordination are normal. 5/5 strength in all extremities. PSYCH Normal mood and affect. Judgement/competence is appropriate Results & Data Results & Data Vital Signs (Past 12 Hours) Vital Signs Pulse Pulse Resp BP Pulse Ox Pulse Ox O2 Del Method 09/15/24 07:12 65 09/15/24 07:00 71 18 187/90 H 96 Room Air 09/15/24 06:00 67 16 176/87 H 95 Room Air 09/15/24 05:00 61 18 152/71 H 94 Room Air 09/15/24 04:46 65 09/15/24 04:00 59 L 18 169/76 H 95 Room Air 09/15/24 03:00 60 18 168/77 H 93 Room Air 09/15/24 02:00 64 16 177/94 H 95 Room Air 09/15/24 02:00 95 09/15/24 01:00 65 18 133/76 93 Room Air O2 Del Method 09/15/24 07:12 09/15/24 07:00 09/15/24 06:00 09/15/24 05:00 09/15/24 04:46 09/15/24 04:00 09/15/24 03:00 09/15/24 02:00 09/15/24 02:00 Room Air 09/15/24 01:00 PG Care Time/CCT Total # of Minutes Spent Total Time Spent with Patient: Total time spent is greater than 50% in coordination of care (as documented) at patient's floor/unit and/or counseling patient: Coding Level of Care Code 68131 SUB INP/OBS CARE 2/35MIN Diagnoses Open wound of third toe of right foot S91.104A Cellulitis of third toe of right foot L03.031 Chronic kidney disease, stage 3b N18.32
--- NOTE | 2024-09-15 12:43 | Podiatry Consultation ---
Date of Consultation September 15, 2024 Assessment & Plan (1) Open wound of third toe of right foot: Encounter type: initial encounter Qualified Code(s): S91.104A - Unspecified open wound of right lesser toe(s) without damage to nail, initial encounter (2) Cellulitis of foot, right: (3) Cellulitis of third toe of right foot: (4) Diabetic peripheral neuropathy associated with type 2 diabetes mellitus: Plan patient was examined and evaluated in the emergency department with Camille from the wound care team. The wound was debrided loosely, lightly with a open curette. We discussed that treatment especially with his level of pain, is best with a IV sedation and excisional debridement versus amputation. An MRI was ordered to establish the level of potential bone infection. Further, he would benefit from noninvasive arterial studies to establish his baseline arterial flow. He has had prior intervention and has current questionable vascular inflow again. Still, we will plan on proceeding with surgery tomorrow. Patient understands and is amenable to this. He will likely be admitted for the next few days at least. Thank you for the consult, we are always happy to help out with these patients whenever possible. History of Present Illness Reason for Consultation: Right third toe wound/cellulitis Attending Physician: Avery Kilgore MD History of Present Illness patient seen at bedside in the emergency department. He states he presented with worsening right foot infection and a longer standing history of right third toe ulceration. He sees a podiatry team in [place] for treatment of his nails and this callus. He states this was shaved down recently and now has progressed to this wound with cellulitis of the foot. He states he was feeling sicker so sought more aggressive treatment with his increase in symptoms. He states that this has been present for some time and that he has also had a history of peripheral arterial disease leading to vascular mention in his lower extremity. Otherwise, he denies any recent medical history change. Allergies Allergy/AdvReac Type Severity Reaction Status Date / Time latex Allergy Severe Blister Verified 09/14/24 14:46 amoxicillin AdvReac Intermediate Vomiting Verified 09/14/24 14:46 clavulanic acid AdvReac Intermediate Vomiting Verified 09/14/24 14:46 [From Augmentin] Home Medications Medication Instructions Recorded Confirmed Type atorvastatin 20 mg tablet 20 mg PO QPM 03/03/23 09/14/24 History blood sugar diagnostic (OneTouch 03/03/23 09/14/24 History Ultra Test strips) pen needle, diabetic 31 gauge x 03/03/23 09/14/24 History 5/16" (BD Ultra-Fine Short Pen Needle) carvedilol 25 mg tablet 25 mg PO BID 03/05/23 09/14/24 History metformin 1,000 mg tablet 1,000 mg PO BID 04/18/23 09/14/24 History blood-glucose sensor (FreeStyle 05/13/23 09/14/24 History Darnell 3 Sensor device) glucagon 1 mg/0.2 mL subcutaneous 1 mg subcut UD PRN prn 05/13/23 09/14/24 History auto-injector insulin glargine 100 unit/mL (3 20 unit subcut AMPM 05/13/23 09/14/24 History mL) subcutaneous pen (Lantus Solostar U-100 Insulin) gabapentin 300 mg capsule 300 mg PO QID #120 caps 08/23/24 09/14/24 Rx amlodipine 10 mg tablet 10 mg PO QAM 09/14/24 09/14/24 History aspirin 81 mg chewable tablet 81 mg PO QAM 09/14/24 09/14/24 History insulin aspart U-100 100 unit/mL 0 unit subcut TID 09/14/24 09/14/24 History (3 mL) subcutaneous pen (Novolog FlexPen U-100 Insulin aspart) losartan 100 mg tablet 100 mg PO QAM 09/14/24 09/14/24 History sodium zirconium cyclosilicate 10 10 g PO WK 09/14/24 09/14/24 History gram oral powder packet (Lokelma) Patient History Medical History History of kidney injury Calculus of kidney in male Orchalgia Spermatocele Surgical History History of total right knee replacement History of carotid endarterectomy 07/2023, [facility], unsure of date, no stents History of kidney surgery lithotripsy Family History Aunt Diabetes Uncle Diabetes Social History Smoking Status: Former smoker Age Quit Using Tobacco: 30; Second Hand Exposure: No; Do You Dip or Chew Tobacco: No; Hx Alcohol Use: No Hx Substance Use: No Preferred Language: Maldivian Communication Ability: Effective Visual Impairment: Limited Hearing Ability: Hard of Hearing Microbiology Lab Manager Required: No Beliefs That Will Affect Care: None marital status: Current Living Situation: Spouse Feels Safe at Home: Yes Safety Concerns: Feels Safe At This Time Diet: regular caffeine: Yes Assistive Devices: Denture - Upper, Denture - Lower and Glasses Review of Systems Review of Systems: All systems reviewed & are unremarkable except as noted in HPI & below Constitutional: + fever, + fatigue and + malaise; no chi lls Eyes: no problem reported Ear, Nose, Mouth, Throat: no problem reported Respiratory: no problem reported Cardiovascular: + edema; no problem reported Gastrointestinal: no nausea, no vomiting and no problem reported Musculoskeletal: no problem reported Integumentary: + skin ulcer, + wounds and + erythema Neurologic: + loss of sensation, + numbness and + pa resthesia; no generalized weakness Psychiatric: no problem reported Physical Exam Physical Exam: right lower extremity focused exam: DP/PT pulses nonpalpable. The DP is monophasic on Doppler exam at bedside. advanced trophic changes are noted to the feet with diffuse thinning of the skin, nail dystrophy, absent hair growth, and pitting edema to the lower extremity. There is cooling proximal and distal except for the calor from the cellulitis of the forefoot. The right third toe has a dry eschar overlying the distal dorsal half of the digit, from the middle of the middle phalanx distally to the distal phalanx. No other open lesions noted. Of note, the level of fibrosis and eschar to the toe is obscuring what the actual wound bases. He has pain on sharp debridement at bedside of this wound. There does appear to be evidence of phalanx bone within the ulcer, though with the extensive dryness and eschar formation this is difficult to elucidate. This would be better visualized on MR imaging. The plain film imaging reveals no obvious acute destructive process to the phalanx, though there is erosion proliferation to the DIPJ could be consistent with bone infection. Constitutional: WD/WN, vitals as above + ill appearing and + obese Eyes: PERRL, conjunctivae normal, anicteric sclerae ENMT: external ear and nose normal, oropharynx normal Neck: trachea midline, no thyromegaly normal visual inspection Respiratory: normal respiratory effort; no respiratory distress Cardiovascular: Rate/Rhythm: regular rate and regular rhythm Vessels: + posterior tibial pulses abnormal and + dorsalis pedis pulses abnormal (Monophasic on exam) Chest (Breasts): Chest: normal inspection of chest Gastrointestinal (Abdomen): Inspection/Auscultation: abdomen normal to inspection Percussion/Palpation: + abdomen tender and abdomen soft; no hepatosplenomegaly Musculoskeletal: no cyanosis or clubbing, extremities motor strength 5/5 Head/Neck/Chest: normocephalic and head atraumatic Extremities: extremities normal to inspection Skin: + ulcer, + wound, + dry skin and + eryth jair Neurologic: awake; + abnormal touch/pain/proprioception, + abnormal sensation to monofilament and no focal motor deficits Psychiatric: A+Ox3, euthymic affect Results & Data Vital Signs (Past 12 Hours) Vital Signs Pulse Pulse Resp BP Pulse Ox Pulse Ox O2 Del Method 09/15/24 07:12 65 09/15/24 07:00 71 18 187/90 H 96 Room Air 09/15/24 06:00 67 16 176/87 H 95 Room Air 09/15/24 05:00 61 18 152/71 H 94 Room Air 09/15/24 04:46 65 09/15/24 04:00 59 L 18 169/76 H 95 Room Air 09/15/24 03:00 60 18 168/77 H 93 Room Air 09/15/24 02:00 64 16 177/94 H 95 Room Air 09/15/24 02:00 95 09/15/24 01:00 65 18 133/76 93 Room Air O2 Del Method 09/15/24 07:12 09/15/24 07:00 09/15/24 06:00 09/15/24 05:00 09/15/24 04:46 09/15/24 04:00 09/15/24 03:00 09/15/24 02:00 09/15/24 02:00 Room Air 09/15/24 01:00
--- NOTE | 2024-09-15 15:47 | XRay Report ---
XR orbits for MRI HISTORY: 68 years-old Male Screening for foreign body for MRI screening for MRI COMPARISON: None TECHNIQUE: 3 views of the orbits FINDINGS: No opaque foreign body of the orbits is identified. No acute facial bone fracture. Mastoid air cells and paranasal sinuses appear clear. The patient is edentulous. IMPRESSION: No metallic foreign body of the orbits identified. ACT 112: Negative or not required by law. The above report was generated using voice recognition software. It may contain grammatical, syntax o r spelling errors. Electronically signed by: Logan Khan M.D. 09/15/2024 3:46 PM
[2024-09-15] MEDS: ONDANSETRON INJ 2 MG/ML 2 ML VIAL IV PRN (16:03)
[2024-09-15] MEDS: ACETAMINOPHEN 500 MG TAB PO PRN (16:41)
[2024-09-15] MEDS: ATORVASTATIN 20 MG TAB PO SCH (20:39)
--- NOTE | 2024-09-15 22:59 | Magnetic Resonance Report ---
Exam(s): MRI RIGHT FOOT Without Contrast EXAM: MR Right Lower Extremity Without Intravenous Contrast, Foot CLINICAL HISTORY: Reason for exam: Diabetic foot infection - r/o R 3rd toe OM. TECHNIQUE: Multiplanar magnetic resonance images of the right foot without intravenous contrast. COMPARISON: X-rays dated 09/14/2024. FINDINGS: There is soft tissue edema and swelling. No discrete fluid collection is noted. Bony structures are intact. No evidence of acute fracture or dislocation. There is bone marrow edema involving the third middle and distal phalanges. There are hypertrophic degenerative changes. IMPRESSION: There is soft tissue swelling and edema. There is bone marrow edema involving the third middle and distal phalanges. This is compatible with acute osteomyelitis. Electronically signed by: Los Saavedra MD 09/15/24 22:58 PM
[2024-09-16] MEDS ORDERED: Nursing to Pharmacy Communication SCH (04:30)
[2024-09-16] MEDS: INSULIN ASPART PER UNIT CHARGE SC SCH ×2 (06:07→20:40)
[2024-09-16 06:24] LABS: Basophils # (auto) 0.05 K/uL (0.00-0.20); Basophils % (auto) 0.5 %; Hematocrit (blood only) 34.6 % (42.0-52.0); Hemoglobin 11.1 g/dl (14.0-18.0); Immature Granulocytes # (auto) 0.04 K/uL (0.01-0.20); Immature Granulocytes % (auto) 0.4 %; Lymphocytes # (auto) 0.91 K/uL (1.20-3.40); Lymphocytes % (auto) 9.1 %; Mean Corpuscular Hemoglobin 29.8 pg (25.0-34.0); Mean Corpuscular Hgb Conc 32.1 g/dL (32.0-36.0); Mean Corpuscular Volume 92.8 fL (80.0-100.0); Mean Platelet Volume 10.3 fL (9.4-12.4); Monocytes # (auto) 1.21 K/uL (0.11-0.59); Monocytes % (auto) 12.1 %; Neutrophils # (auto) 7.58 K/uL (1.40-6.50); Neutrophils % (auto) 75.9 %; Platelet Count 312 K/uL (130-400); RDW Coefficient of Variation 13.4 % (11.5-14.5); RDW Standard Deviation 45.2 fL (36.4-46.3); Red Blood Count 3.73 M/uL (4.70-6.10); White Blood Count 9.99 K/ul (4.8-10.8)
[2024-09-16 06:41] LABS: Albumin Globulin Ratio 1.2 (0.9-2); Albumin Level 3.6 gm/dl (3.4-5.0); BUN Creatinine Ratio 14.7 (10-20); Bilirubin,Total 0.3 mg/dl (0.2-1.0); Calcium 8.7 mg/dl (8.6-10.3); Creatinine Clr Calc Pharmacy 48.6 ml/min; Globulin 2.9 gm/dl (2.5-4.0); Magnesium 1.9 mg/dl (1.7-2.4); Potassium 4.9 mmol/L (3.5-5.1); Total Protein 6.5 gm/dl (6.0-8.3)
--- NOTE | 2024-09-16 08:34 | Infectious Disease Consult ---
Date of Consultation September 16, 2024 Assessment & Plan (1) Osteomyelitis of third toe of right foot: (2) Cellulitis of foot, right: Plan Problems: #R third toe osteomyelitis #DM2 #PAD #CKD #Allergy to amox/clav: vomiting Micro: 09/14 BCx x2: NGTD Abx: Cefepime 09/14 - present Dapto 09/14 - present Ceftriaxone 09/14 68 yo M with DM2, peripheral neuropathy, CKD, HTN, HLD, PAD who presented on 09/14 with worsening pain and redness in R third toe with overlying dry eschar, found to have R third toe osteomyelitis. States his symptoms worsened after having some debridement performed in the outpatient setting a few weeks ago. On presentation, pt was afebrile, VSS with WBC 10, Cr 1.68. MRI L foot showed soft tissue swelling and edema, and bone marrow edema involving third middle and distal phalanges compatible with acute osteomyelitis. He is currently on dapto, cefepime. Podiatry plans to take the pt to the OR 09/16/24. Recommendations: - Please send cultures of tissue and bone from the OR. If amputation is performed, please send proximal bone margin for path. - Can continue dapto, cefepime for now - Agree with arterial studies given history of PAD Will continue to follow. Consultation Information This patient recommendation is based on a telemedicine consult request which was completed asynchronously through chart review and information provided by the primary physician. The patient was not seen or examined today. The evaluation is consultative in nature and all patient care and treatment decisions can either be accepted or rejected by the patient's primary hospital-based treating physician using their own independent medical judgment for their patient. Computer Scientist contact information: Please call [facility] [phone]. (Phone Number For Physician Use Only) Time Spent Reviewing Chart: 31+ minutes History of Present Illness Reason for Consultation: R third toe osteomyelitis Attending Physician: Avery Kilgore MD History of Present Illness 68 yo M with DM2, peripheral neuropathy, CKD, HTN, HLD, PAD who presented on 09/14 with worsening pain and redness in R third toe for the last few days. States his symptoms worsened after having some debridement performed in the outpatient setting a few weeks ago. On presentation, pt was afebrile, VSS. Labs showed WBC 10, Cr 1.68. MRI L foot showed soft tissue swelling and edema, and bone marrow edema involving third middle and distal phalanges compatible with acute osteomyelitis. He is currently on dapto, cefepime. Podiatry plans to take the pt to the OR today. Allergies Allergy/AdvReac Type Severity Reaction Status Date / Time latex Allergy Severe Blister Verified 09/14/24 14:46 amoxicillin AdvReac Intermediate Vomiting Verified 09/14/24 14:46 clavulanic acid AdvReac Intermediate Vomiting Verified 09/14/24 14:46 [From Augmentin] Home Medications Medication Instructions Recorded Confirmed Type atorvastatin 20 mg tablet 20 mg PO QPM 03/03/23 09/14/24 History blood sugar diagnostic (OneTouch 03/03/23 09/14/24 History Ultra Test strips) pen needle, diabetic 31 gauge x 03/03/23 09/14/24 History 5/16" (BD Ultra-Fine Short Pen Needle) carvedilol 25 mg tablet 25 mg PO BID 03/05/23 09/14/24 History metformin 1,000 mg tablet 1,000 mg PO BID 04/18/23 09/14/24 History blood-glucose sensor (FreeStyle 05/13/23 09/14/24 History Darnell 3 Sensor device) glucagon 1 mg/0.2 mL subcutaneous 1 mg subcut UD PRN prn 05/13/23 09/14/24 History auto-injector insulin glargine 100 unit/mL (3 20 unit subcut AMPM 05/13/23 09/14/24 History mL) subcutaneous pen (Lantus Solostar U-100 Insulin) gabapentin 300 mg capsule 300 mg PO QID #120 caps 08/23/24 09/14/24 Rx amlodipine 10 mg tablet 10 mg PO QAM 09/14/24 09/14/24 History aspirin 81 mg chewable tablet 81 mg PO QAM 09/14/24 09/14/24 History insulin aspart U-100 100 unit/mL 0 unit subcut TID 09/14/24 09/14/24 History (3 mL) subcutaneous pen (Novolog FlexPen U-100 Insulin aspart) losartan 100 mg tablet 100 mg PO QAM 09/14/24 09/14/24 History sodium zirconium cyclosilicate 10 10 g PO WK 09/14/24 09/14/24 History gram oral powder packet (Lokelma) Patient History Medical History History of kidney injury Calculus of kidney in male Orchalgia Spermatocele Surgical History History of total right knee replacement History of carotid endarterectomy 07/2023, [facility] [place] [facility], unsure of date, no stents History of kidney surgery lithotripsy Family History Aunt Diabetes Uncle Diabetes Social History Smoking Status: Former smoker Age Quit Using Tobacco: 30; Second Hand Exposure: No; Do You Dip or Chew Tobacco: No; Hx Alcohol Use: No Hx Substance Use: No Preferred Language: Lithuanian Communication Ability: Effective Visual Impairment: Limited Hearing Ability: Hard of Hearing Dental Service Chief Required: No Beliefs That Will Affect Care: None marital status: Current Living Situation: Spouse Feels Safe at Home: Yes Diet: regular caffeine: Yes Assistive Devices: Special Shoe Results & Data Vital Signs (Past 12 Hours) Vital Signs Temp Pulse Pulse Resp BP BP Pulse Ox 09/16/24 08:02 36.4 C L 73 18 164/67 H 96 09/16/24 03:35 36.4 C L 72 18 136/71 95 09/15/24 22:59 36.4 C L 66 18 156/69 H 95 09/15/24 22:10 71 O2 Del Method 09/16/24 08:02 Room Air 09/16/24 03:35 Room Air 09/15/24 22:59 Room Air 09/15/24 22:10 Laboratory Results Short CBC 09/16/24 Range/Units 05:43 WBC 9.99 (4.8-10.8) K/ul Hgb 11.1 L (14.0-18.0) g/dl Hct 34.6 L (42.0-52.0) % Plt Count 312 (130-400) K/uL BMP 09/16/24 05:43 Sodium 136 Potassium 4.9 Chloride 106 Carbon Dioxide 25 BUN 24 H Creatinine 1.63 H Glucose 132 H Calcium 8.7 Liver Function 09/16/24 Range/Units 05:43 Total Bilirubin 0.3 (0.2-1.0) mg/dl AST 11 L (13-39) U/L ALT 7 (7-52) U/L Alkaline Phosphatase 77 (34-104) U/L Albumin 3.6 (3.4-5.0) gm/dl Diagnostic Findings Foot X-Ray 09/14/24 19:19 Exam(s): XR RIGHT FOOT, 3+ views EXAM: XR Right Foot Complete, 3 or More Views CLINICAL HISTORY: Toe infection. TECHNIQUE: Frontal, lateral and oblique views of the right foot. COMPARISON: No relevant prior studies available. FINDINGS: Bones/joints: Plantar calcaneal bone spur. No acute fracture. No dislocation. There are changes second proximal interphalangeal joint. No bone erosion or destruction. No periosteal reaction. Soft tissues: Aspirin calcifications. No radiopaque foreign body. IMPRESSION: No x-ray evidence for osteomyelitis. No changes second digit proximal interphalangeal joint. Vascular calcifications. Electronically signed by: Ten Brand M.D. 09/14/24 21:53 PM Foot MRI 09/15/24 12:43 Exam(s): MRI RIGHT FOOT Without Contrast EXAM: MR Right Lower Extremity Without Intravenous Contrast, Foot CLINICAL HISTORY: Reason for exam: Diabetic foot infection - r/o R 3rd toe OM. TECHNIQUE: Multiplanar magnetic resonance images of the right foot without intravenous contrast. COMPARISON: X-rays dated 09/14/2024. FINDINGS: There is soft tissue edema and swelling. No discrete fluid collection is noted. Bony structures are intact. No evidence of acute fracture or dislocation. There is bone marrow edema involving the third middle and distal phalanges. There are hypertrophic degenerative changes. IMPRESSION: There is soft tissue swelling and edema. There is bone marrow edema involving the third middle and distal phalanges. This is compatible with acute osteomyelitis. Electronically signed by: Los Saavedra MD 09/15/24 22:58 PM Orbit X-Ray 09/15/24 14:50 XR orbits for MRI HISTORY: 68 years-old Male Screening for foreign body for MRI screening for MRI COMPARISON: None TECHNIQUE: 3 views of the orbits FINDINGS: No opaque foreign body of the orbits is identified. No acute facial bone fracture. Mastoid air cells and paranasal sinuses appear clear. The patient is edentulous. IMPRESSION: No metallic foreign body of the orbits identified. ACT 112: Negative or not required by law. The above report was generated using voice recognition software. It may contain grammatical, syntax or spelling errors. Electronically signed by: Logan Khan M.D. 09/15/2024 3:46 PM Medications Administered Current Inpatient Medications Acetaminophen (Acetaminophen 500 Mg Tab) 1,000 mg PO Q8H PRN PRN Reason: Pain Stop: 10/15/24 16:01 Last Admin: 09/16/24 02:26 Dose: 1,000 mg Amlodipine Besylate (Amlodipine Besylate 5 Mg Tab) 10 mg PO QAM ILEANA Stop: 10/15/24 08:59 Last Admin: 09/15/24 09:07 Dose: 10 mg Aspirin (Aspirin 81 Mg Chew) 81 mg PO QAM ILEANA Stop: 10/15/24 08:59 Last Admin: 09/15/24 09:07 Dose: 81 mg Atorvastatin Calcium (Atorvastatin 20 Mg Tab) 20 mg PO QPM ILEANA Stop: 10/15/24 20:59 Last Admin: 09/15/24 20:39 Dose: 20 mg Carvedilol (Carvedilol 25 Mg Tab) 25 mg PO BID ILEANA Stop: 10/15/24 08:59 Last Admin: 09/15/24 20:39 Dose: 25 mg Dextrose (Dextrose 50% 50 Ml Syringe) 25 - 50 ml IV UD PRN; Protocol PRN Reason: Hypoglycemia Protocol Stop: 10/15/24 01:39 Gabapentin (Gabapentin 300 Mg Cap) 300 mg PO QID ILEANA Stop: 10/15/24 08:59 Last Admin: 09/15/24 20:39 Dose: 300 mg Glucagon (Glucagon For Inj 1 Mg Vial) 1 mg SQ UD PRN; Protocol PRN Reason: Hypoglycemia Protocol Stop: 10/15/24 01:39 Glucose (Glucose 40% Gel 15 Gm Tube) 15 - 30 gm PO UD PRN; Protocol PRN Reason: Hypoglycemia Protocol Stop: 10/15/24 01:39 Glucose (Glucose 10 Tab/Tube) 4 - 8 tab PO UD PRN; Protocol PRN Reason: Hypoglycemia Protocol Stop: 10/15/24 01:39 Heparin Sodium (Porcine) (Heparin Sod 5,000 Unit/0.5 Ml Vial) 5,000 units SQ Q12 ILEANA Stop: 10/15/24 08:59 Last Admin: 09/15/24 20:40 Dose: 5,000 units Daptomycin 450 mg/ Syringe 9 mls @ 4.5 mls/min IV Q24H [facility]; Protocol Stop: 10/26/24 22:59 Last Admin: 09/15/24 22:58 Dose: 4.5 mls/min Cefepime HCl (Maxipime 2000mg) 2,000 mg in 20 mls @ 5 mls/min IV Q12H [facility]; Protocol Stop: 10/27/24 08:59 Last Admin: 09/15/24 20:43 Dose: 5 mls/min Insulin Aspart (Insulin Aspart Per Unit Charge) 0 units SC Q6 [facility] Stop: 10/15/24 07:29 Last Admin: 09/16/24 06:07 Dose: Not Given Insulin Glargine (Lantus Per Unit Charge) 20 units SQ BID [facility] Stop: 10/15/24 08:59 Last Admin: 09/15/24 20:40 Dose: 20 units Losartan Potassium (Losartan Potassium 50 Mg Tab) 100 mg PO QAM [facility] Stop: 10/15/24 08:59 Last Admin: 09/15/24 09:07 Dose: 100 mg Miscellaneous (Carbohydrates For Hypoglycemia ) 15 - 30 gm PO UD PRN PRN Reason: Hypoglycemia Protocol Stop: 10/15/24 01:39 Morphine Sulfate (Morphine Sulfate 4 Mg/Ml 1 Ml Carp\\Vial) 4 mg IV Q1H PRN PRN Reason: Pain Stop: 09/28/24 19:57 Last Admin: 09/15/24 13:26 Dose: 4 mg Ondansetron HCl (Ondansetron Inj 2 Mg/Ml 2 Ml Vial) 4 mg IV Q6H PRN PRN Reason: Nausea Stop: 10/15/24 01:39 Last Admin: 09/15/24 16:03 Dose: 4 mg
--- NOTE | 2024-09-16 10:33 | Hospitalist Progress Note ---
Date of Service September 16, 2024 Assessment & Plan (1) Open wound of third toe of right foot: Plan: Right third toe diabetic ulcer/cellulitis- Daptomycin 450 mg IV daily Cefepime 2 g IV every 12 hours To OR today for debridement vs amputation RLE angiogram ordered ID consult appreciated Continue wound care (2) Cellulitis of third toe of right foot: Plan: Daptomycin 450 mg IV daily Cefepime 2 g IV every 12 hours (3) Chronic kidney disease, stage 3b: Plan: Creatinine 1.68, with base 1.88 Follow serially Plan Diabetes mellitus- Hold metformin continue glargine 20 and SQ twice daily Check hemoglobin A1c Chronic medical issues: Hyperlipidemia-continue atorvastatin Peripheral neuropathy-continue gabapentin Admission and Anticipated Discharge Date Admission Date: September 14, 2024 Subjective No events overnight. Pt resting comfortably in bed. Pt awaiting OR this am. Review of Systems Review of Systems: CONST: Negative for fever, body aches and chills. HENT: Negative for neck pain/stiffness, headache, congestion, sore throat, swelling. EYES: Negative for discharge/pain or vision changes. RESP: Negative for cough/hemoptysis and shortness of breath. CV: Negative chest pain, difficulty breathing, palpitations. ABD: Negative pain, nausea, vomiting. : Negative increase frequency, dysuria, blood in urine or stool. MUSC: Negative for muscle aches, edema. SKIN: Negative rash, lesions/sores. NEURO: Negative headache, dizziness, weakness. Physical Exam Physical Exam: GENERAL APPEARANCE NAD, activity normal for age, well developed/ well nourished, no cyanosis, pallor, or diaphoresis. EYES lids/conjunctiva normal. EARS/NOSE/THROAT Mucous membranes moist, nares normal, lips/teeth normal uvula midline without oral pharyngeal erythema, exudate or swelling TMs normal bilaterally. No lymphangitis/lymphedema. HEAD/NECK normocephalic atraumatic, no facial trauma, neck is supple. RESPIRATORY respiratory effort normal, speaks in full sentences, no tripod position, no accessory muscle use. Lungs clear to auscultation without rhonchi, wheezes, rales CARDIAC Regular rate and rhythm, no edema. ABDOMINAL Soft, ND/NT. No evidence of fluid wave. No pulsatile masses on exam, rebound tenderness, Pimentel sign or pain over Mcburney's point. MUSCLES/EXTREMITIES No abnormal range of motion, no swelling. Right 3rd toe gangrene SKIN Warm, pink and dry. No rashes, dermatoses, petechiae or lesions. NEUROLOGICAL Speech is clear and appropriate. Normal level of consciousness. Gait and coordination are normal. 5/5 strength in all extremities. PSYCH Normal mood and affect. Judgement/competence is appropriate Results & Data Results & Data Vital Signs (Past 12 Hours) Vital Signs Temp Pulse Resp BP BP Pulse Ox O2 Del Method 09/16/24 08:02 36.4 C L 73 18 164/67 H 96 Room Air 09/16/24 03:35 36.4 C L 72 18 136/71 95 Room Air 09/15/24 22:59 36.4 C L 66 18 156/69 H 95 Room Air PG Care Time/CCT Total # of Minutes Spent Total Time Spent with Patient: Total time spent is greater than 50% in coordination of care (as documented) at patient's floor/unit and/or counseling patient: Coding Level of Care Code 23813 SUB INP/OBS CARE 2/35MIN Diagnoses Open wound of third toe of right foot, initial encounter S91.104A Encounter type: initial encounter Cellulitis of third toe of right foot L03.031 Chronic kidney disease, stage 3b N18.32 (1) Open wound of third toe of right foot Encounter type: initial encounter Qualified Code(s): S91.104A - Unspecified open wound of right lesser toe(s) without damage to nail, initial encounter
[2024-09-16] MEDS ORDERED: PROPOFOL IV EMULSION 10 MG/ML 20 ML VIAL IV ONE (11:30)
--- NOTE | 2024-09-16 11:34 | Anesthesiology Consultation ---
Date of Service September 16, 2024 Assessment & Plan Chart Review Chart Review: Acceptable Risk for Surgery and Patient NOT seen in Pre Admission Testing Consults Requested none ASA ASA4 Proposed Anesthesia Anesthesia Type: MAC History Surgery Operation Date: 09/16/24 11:45 Proposed Procedures p Right Third Toe Debridement versus Amputation - Afshin Morales DPM Height/Weight Height: 5 ft 11 in Weight: 90.8 kg Allergies Allergy/AdvReac Type Severity Reaction Status Date / Time latex Allergy Severe Blister Verified 09/14/24 14:46 amoxicillin AdvReac Intermediate Vomiting Verified 09/14/24 14:46 clavulanic acid AdvReac Intermediate Vomiting Verified 09/14/24 14:46 [From Augmentin] Medications Home Medications Medication Instructions Recorded Confirmed Last Taken atorvastatin 20 mg tablet 20 mg PO QPM 03/03/23 09/14/24 09/13/24 blood sugar diagnostic (OneTouch 03/03/23 09/14/24 Unknown Ultra Test strips) pen needle, diabetic 31 gauge x 03/03/23 09/14/24 Unknown 5/16" (BD Ultra-Fine Short Pen Needle) carvedilol 25 mg tablet 25 mg PO BID 03/05/23 09/14/24 09/14/24 am metformin 1,000 mg tablet 1,000 mg PO BID 04/18/23 09/14/24 09/14/24 blood-glucose sensor (FreeStyle 05/13/23 09/14/24 Unknown Darnlel 3 Sensor device) glucagon 1 mg/0.2 mL subcutaneous 1 mg subcut UD PRN prn 05/13/23 09/14/24 Unknown auto-injector insulin glargine 100 unit/mL (3 20 unit subcut AMPM 05/13/23 09/14/24 09/14/24 mL) subcutaneous pen (Lantus AM Solostar U-100 Insulin) gabapentin 300 mg capsule 300 mg PO QID #120 caps 08/23/24 09/14/24 09/14/24 am dose amlodipine 10 mg tablet 10 mg PO QAM 09/14/24 09/14/24 09/14/24 aspirin 81 mg chewable tablet 81 mg PO QAM 09/14/24 09/14/24 09/13/24 insulin aspart U-100 100 unit/mL 0 unit subcut TID 09/14/24 09/14/24 Unknown (3 mL) subcutaneous pen (Novolog FlexPen U-100 Insulin aspart) losartan 100 mg tablet 100 mg PO QAM 09/14/24 09/14/24 09/14/24 sodium zirconium cyclosilicate 10 10 g PO WK 09/14/24 09/14/24 Unknown gram oral powder packet (Lokelma) Active Medications Generic Name Dose Route Start Last Admin Trade Name Freq PRN Reason Stop Dose Admin Acetaminophen 1,000 mg 09/15/24 16:02 09/16/24 02:26 Acetaminophen 500 Mg Tab PO 10/15/24 16:01 1,000 mg Q8H PRN Administration Pain Amlodipine Besylate 10 mg 09/15/24 09:00 09/16/24 11:02 Amlodipine Besylate 5 Mg Tab PO 10/15/24 08:59 10 mg QAM ILEANA Administration Aspirin 81 mg 09/15/24 09:00 09/16/24 08:49 Aspirin 81 Mg Chew PO 10/15/24 08:59 81 mg QAM ILEANA Administration Atorvastatin Calcium 20 mg 09/15/24 21:00 09/15/24 20:39 Atorvastatin 20 Mg Tab PO 10/15/24 20:59 20 mg QPM ILEANA Administration Carvedilol 25 mg 09/15/24 09:00 09/16/24 08:49 Carvedilol 25 Mg Tab PO 10/15/24 08:59 25 mg BID ILEANA Administration Gabapentin 300 mg 09/15/24 09:00 09/16/24 08:49 Gabapentin 300 Mg Cap PO 10/15/24 08:59 300 mg QID ILEANA Administration Heparin Sodium (Porcine) 5,000 units 09/15/24 09:00 09/16/24 08:51 Heparin Sod 5,000 Unit/0.5 Ml Vial SQ 10/15/24 08:59 5,000 units Q12 ILEANA Administration Daptomycin 450 mg/ Syringe 9 mls @ 4.5 mls/min 09/14/24 23:00 09/15/24 22:58 IV 10/26/24 22:59 4.5 mls/min Q24H ILEANA Administration Protocol Cefepime HCl 2,000 mg in 20 mls @ 5 mls/min 09/15/24 09:00 09/16/24 08:51 Maxipime 2000mg IV 10/27/24 08:59 5 mls/min Q12H ILEANA Administration Protocol Insulin Aspart 0 units 09/16/24 06:00 09/16/24 06:07 Insulin Aspart Per Unit Charge SC 10/15/24 07:29 Not Given Q6 ILEANA Insulin Glargine 20 units 09/15/24 09:00 09/16/24 09:03 Lantus Per Unit Charge SQ 10/15/24 08:59 Not Given BID ILEANA Losartan Potassium 100 mg 09/15/24 09:00 09/16/24 08:50 Losartan Potassium 50 Mg Tab PO 10/15/24 08:59 100 mg QAM ILEANA Administration Morphine Sulfate 4 mg 09/14/24 19:58 09/15/24 13:26 Morphine Sulfate 4 Mg/Ml 1 Ml Carp\\Vial IV 09/28/24 19:57 4 mg Q1H PRN Administration Pain Ondansetron HCl 4 mg 09/15/24 01:40 09/15/24 16:03 Ondansetron Inj 2 Mg/Ml 2 Ml Vial IV 10/15/24 01:39 4 mg Q6H PRN Administration Nausea Past Medical History Medical History History of kidney injury Calculus of kidney in male Orchalgia Spermatocele ASCVD Aorta/carotids NIDDM HTN HLD Diabetic PN obese PVD CKD 3B ANTONIO Anemia Exercise / Class Metabolic Activity III < 4 Walking/Shop/Light housework Past Family History Family History Aunt Diabetes Uncle Diabetes Past Surgical History Surgical History History of total right knee replacement History of carotid endarterectomy 07/2023, [facility] [place] [facility], unsure of date, no stents History of kidney surgery lithotripsy Past Anesthesia History No Hx of Anesthesia Complications and No Family Hx of Anesthesia Complications History of PONV No Hx of PONV and No Hx of Motion Sickness Social History Smoking Status: Former smoker Do You Dip or Chew Tobacco: No Hx Alcohol Use: No Hx Substance Use: No substance use type: does not use Physical Exam Vital Signs Last Vital Signs Temp 36.5 C 09/16/24 11:15 Pulse 68 09/16/24 11:15 Resp 18 09/16/24 11:15 BP 163/65 H 09/16/24 11:15 Pulse Ox 97 09/16/24 11:15 O2 Del Method Room Air 09/16/24 11:15 Testing Laboratory Results 09/16/24 05:43 09/16/24 05:43 09/14/24 20:05 Aerobic Blood Culture - Preliminary Blood No growth in Aerobic bottle after 24 hours. Anaerobic Blood Culture - Preliminary No growth in Anaerobic bottle after 24 hours. 09/14/24 20:05 Aerobic Blood Culture - Preliminary Blood No growth in Aerobic bottle after 24 hours. Anaerobic Blood Culture - Preliminary No growth in Anaerobic bottle after 24 hours. 09/16/24 06:05 POC Glucose 131 H Electrocardiogram Date: 11/05/23 Findings: + NSR @ (@ 64;NS ST abnl) and + NSST changes Echocardiogram Date: 03/26/23 EF: 55% LV Function: normal RWMA: + none Other Findings: + diastolic dysfunction (Grade 1) mild TR
[2024-09-16] MEDS ORDERED: fentaNYL citrate PF 100 MCG/2 ML VIAL ONE (11:39)
--- NOTE | 2024-09-16 11:40 | History & Physical Bridge Note ---
Date of Service September 16, 2024 History & Physical Bridge Note I have examined the patient, reviewed the History & Physical and in the interval since the performance of the History & Physical I have noted the following changes of clinical significance: no changes noted. MRI reveals acute osteomyelitis, consistent with clinical exam. Consented for right third toe amputation. Preoperative instructions, postoperative instructions, risks, outcomes all discussed at length. Consent obtained at bedside.
[2024-09-16] MEDS ORDERED: NALOXONE HCL 0.4 MG/1 ML VIAL/CARP IV PRN (11:43)
[2024-09-16] MEDS ORDERED: PROMETHAZINE HCL 6.25 MG in SODIUM CHLORIDE 0.9% 50 ML IV PRN (11:43)
[2024-09-16] MEDS: LACTATED RINGER'S 1,000 ML IV SCH (11:43)
[2024-09-16] MEDS ORDERED: ePHEDrine sulfate 50 MG/ML AMP IV PRN (11:43)
[2024-09-16] MEDS ORDERED: fentaNYL citrate PF 100 MCG/2 ML VIAL IV PRN (11:43)
[2024-09-16] MEDS ORDERED: ATROPINE SULFATE 0.1 MG/ML 10ML SYR IV PRN (11:43)
[2024-09-16] MEDS ORDERED: FLUMAZENIL 0.1 MG/1 ML 10 ML VIAL IV PRN (11:43)
[2024-09-16] MEDS ORDERED: ONDANSETRON INJ 2 MG/ML 2 ML VIAL IV PRN (11:43)
--- NOTE | 2024-09-16 12:12 | Post Operative Brief Note ---
Immediate Post Op Note Date of Surgery September 16, 2024 Pre & Post Diagnosis Preoperative diagnosis: Right third toe osteomyelitis Postoperative diagnosis: Same I identified the patient and participated in the time-out.: Yes Procedure Procedure: Right third toe partial amputation Surgeon LUCIANA BallesterosM Commodity Merchant None Estimated Blood Loss 2 Findings Consistent with Post-Op Diagnosis Specimens Right third toe gross pathology Right third toe proximal margin Anesthesia Type MAC Complications none Disposition Accompanied Patient To Recovery: Yes Disposition: Recovery Room
--- NOTE | 2024-09-16 12:36 | Anesthesiology Progress Note ---
Date of Service September 16, 2024 Anesthesia Post Procedure Vital Signs Vital Signs: Temp Pulse Pulse Pulse Resp BP BP 09/16/24 12:25 69 18 126/58 L 09/16/24 12:15 36.4 C L 65 16 124/54 L 09/16/24 11:28 36.7 C 71 16 127/83 09/16/24 11:15 36.5 C 68 18 163/65 H 09/16/24 08:02 36.4 C L 73 18 164/67 H 09/16/24 03:35 36.4 C L 72 18 136/71 09/15/24 22:59 36.4 C L 66 18 156/69 H 09/15/24 22:10 71 09/15/24 19:29 36.3 C L 77 18 156/62 H 09/15/24 15:13 72 146/59 H 09/15/24 14:39 71 09/15/24 14:09 36.7 C 69 18 180/71 H Pulse Ox O2 Del Method O2 Flow Rate 09/16/24 12:25 97 Room Air 09/16/24 12:15 95 Oxymask 5 09/16/24 11:28 98 Room Air 09/16/24 11:15 97 Room Air 09/16/24 08:02 96 Room Air 09/16/24 03:35 95 Room Air 09/15/24 22:59 95 Room Air 09/15/24 22:10 09/15/24 19:29 94 Room Air 09/15/24 15:13 09/15/24 14:39 09/15/24 14:09 95 Room Air Pain Intensity Right Foot: Pain Intensity: 10 Transfer of Care Handoff Completed per policy Notes Mental Status: alert / awake / arousable Patient Amnestic to Procedure: Yes Nausea / Vomiting: adequately controlled Pain: adequately controlled Airway Patency, RR, SpO2: stable & adequate BP & HR: stable & adequate Hydration State: stable & adequate Anesthetic Complications: no major complications apparent
[2024-09-16] MEDS: LACTATED RINGER'S 500 ML IV SCH (13:43)
[2024-09-16] MEDS: BUPIVACAINE 0.5 % 5 MG/1 ML MPF 30ML VIAL ONE (13:49)
--- NOTE | 2024-09-16 21:17 | Operative Report ---
Post Operative Report Pre & Post Diagnosis Operation Date: 09/16/24 11:45 Pre-Op Diagnosis: Right Third Toe Osteomyelitis Post-Op Diagnosis: Right Third Toe Osteomyelitis I identified the patient and participated in the time-out.: Yes Procedure Operation Date: 09/16/24 11:45 Actual Procedures p Right Third Toe Partial Amputation(Right) - Afshin Morales DPM Surgeon Afshin Morales DPM Sales And Marketing Agent None Estimated Blood Loss 2 Findings Consistent with Post-Op Diagnosis Specimens right third toe was sent for pathology testing Anesthesia Type MAC Complications none Disposition Accompanied Patient To Recovery: Yes Disposition: Recovery Room Indications this patient is a recent hospitalization of ours who was consulted for right third toe ulceration and potential osteomyelitis. Both his clinical exam findings and MRI findings reveal or consistent with osteomyelitis. We discussed the treatment for this dry necrosis is either 6-8 weeks of IV antibiotics and wound care versus an AP to because of the dry necrotic appearance of the toe, we did discuss that surgical intervention is the most beneficial. Patient is amenable to this. We discussed preoperative instructions, postop instructions, relative risks, and outcomes. All questions were answered. Consent was taken for this right third toe amputation. Description of Procedure the patient was brought to the operating room and left on his hospital table for the duration of the case. The right lower extremity was scrubbed, prepped, and draped in the usual aseptic manner. No tourniquet was utilized during the duration procedure given his questionable vascular state. Local analgesia was obtained utilizing 20 cc of half percent Marcaine after initiation of IV sedation. Attention was directed to the right third toe where dry necrosis was noted to the distal and middle phalanges. 2 semielliptical incisions were made at the level of the proximal interphalangeal joint circumferentially around the toe. The incisions were carried down to the level of the joint utilizing sharp dissection. The toe was disarticulated this manner with the digit sent for pathology testing. The head of the proximal phalanx was also resected utilizing a double-action bone clipper to allow for primary closure with clinically clean margins and minimal tension on the soft tissue envelope. Closure was performed after copious months of sterile saline was utilized to flush the incision. This was performed with 3-0 nylon in a simple interrupted and horizontal mattress fashion. The incision was dressed with Xeroform gauze, 4 x 4 Meckling, Kerlix, and Talib wrap. The patient tolerance procedure well and was transferred to the recovery with vital signs stable and vascular status intact to the feet. Following postoperative monitoring, the patient was given prescriptions and instructions were discussed with him prior to surgery and transferred back to the floor for likely discharge in the next day or 2. I attest to the content of the Intraoperative Record and any orders documented therein. Any exceptions are noted below.
[2024-09-17 07:54] LABS: Basophils # (auto) 0.04 K/uL (0.00-0.20); Basophils % (auto) 0.4 %; Eosinophils # (auto) 0.11 K/uL (0.00-0.50); Eosinophils % (auto) 1.2 %; Hematocrit (blood only) 30.1 % (42.0-52.0); Immature Granulocytes # (auto) 0.03 K/uL (0.01-0.20); Immature Granulocytes % (auto) 0.3 %; Lymphocytes # (auto) 0.84 K/uL (1.20-3.40); Lymphocytes % (auto) 9.2 %; Mean Corpuscular Hemoglobin 30.6 pg (25.0-34.0); Mean Corpuscular Hgb Conc 33.2 g/dL (32.0-36.0); Mean Platelet Volume 10.6 fL (9.4-12.4); Monocytes # (auto) 1.13 K/uL (0.11-0.59); Monocytes % (auto) 12.3 %; Neutrophils # (auto) 7.02 K/uL (1.40-6.50); Neutrophils % (auto) 76.6 %; Platelet Count 278 K/uL (130-400); RDW Coefficient of Variation 13.2 % (11.5-14.5); RDW Standard Deviation 44.1 fL (36.4-46.3); Red Blood Count 3.27 M/uL (4.70-6.10); White Blood Count 9.17 K/ul (4.8-10.8)
[2024-09-17 08:11] LABS: Albumin Globulin Ratio 1.2 (0.9-2); Albumin Level 3.3 gm/dl (3.4-5.0); BUN Creatinine Ratio 17.2 (10-20); Bilirubin,Total 0.3 mg/dl (0.2-1.0); Calcium 8.4 mg/dl (8.6-10.3); Creatinine Clr Calc Pharmacy 40.7 ml/min; Globulin 2.8 gm/dl (2.5-4.0); Potassium 4.8 mmol/L (3.5-5.1); Total Protein 6.1 gm/dl (6.0-8.3)
[2024-09-17] MEDS: oxyCODONE/ACETAMINOPHEN 5mg/325mg TAB PO PRN (09:24)
--- NOTE | 2024-09-17 10:04 | Discharge Summary ---
Discharge Summary Date of Service September 17, 2024 Principal Dx & Hospital Course #1 = Principal Diagnosis (1) Open wound of third toe of right foot: Right third toe diabetic ulcer/cellulitis- Daptomycin 450 mg IV daily Cefepime 2 g IV every 12 hours To OR today for debridement vs amputation RLE angiogram ordered ID consult appreciated Continue wound care (2) Cellulitis of third toe of right foot: Daptomycin 450 mg IV daily Cefepime 2 g IV every 12 hours (3) Chronic kidney disease, stage 3b: Creatinine 1.68, with base 1.88 Follow serially Plan Diabetes mellitus- Hold metformin continue glargine 20 and SQ twice daily Check hemoglobin A1c Chronic medical issues: Hyperlipidemia-continue atorvastatin Peripheral neuropathy-continue gabapentin Admission HPI Per Admitting Provider The patient is a 68-year-old male with past medical history including hypertension, carotid artery stenosis, PAD status post angioplasty, hyperkalemia, CKD stage IIIb, vitamin D deficiency, status post CEA, hyperlipidemia, diabetes mellitus insulin requiring, peripheral neuropathy, and obesity. The patient presents to the emergency department with complaint of worsening pain and redness in right third toe over the past few days, initially again over a few weeks ago. He reports that his symptoms had worsened after having some debridement performed in the outpatient setting a few weeks ago. He reports his blood sugars have been more labile during his interval time as well. In the emergency department, he was found to have x-ray without suggesting right third toe osteomyelitis, with pain improvement with morphine sulfate IV. He was started on vancomycin IV and ceftriaxone IV, and we changed to daptomycin IV and cefepime IV. Discharge Exam GENERAL APPEARANCE NAD, activity normal for age, well developed/ well nourished, no cyanosis, pallor, or diaphoresis. EYES lids/conjunctiva normal. EARS/NOSE/THROAT Mucous membranes moist, nares normal, lips/teeth normal uvula midline without oral pharyngeal erythema, exudate or swelling TMs normal bilaterally. No lymphangitis/lymphedema. HEAD/NECK normocephalic atraumatic, no facial trauma, neck is supple. RESPIRATORY respiratory effort normal, speaks in full sentences, no tripod position, no accessory muscle use. Lungs clear to auscultation without rhonchi, wheezes, rales CARDIAC Regular rate and rhythm, no edema. ABDOMINAL Soft, ND/NT. No evidence of fluid wave. No pulsatile masses on exam, rebound tenderness, Pimentel sign or pain over Mcburney's point. MUSCLES/EXTREMITIES No abnormal range of motion, no swelling. Right 3rd toe gangrene SKIN Warm, pink and dry. No rashes, dermatoses, petechiae or lesions. NEUROLOGICAL Speech is clear and appropriate. Normal level of consciousness. Gait and coordination are normal. 5/5 strength in all extremities. PSYCH Normal mood and affect. Judgement/competence is appropriate Discharge Plan Discharge Items Patient Disposition: Home - Self-Care Reason For Visit: DIABETIC FOOT INFECTION, OSTEO Discharge Diagnosis: Diabetic foot infection Activity: Resume your previous activity Non-emergency contact: Primary Care Provider Call non-emergency contact if: you have any medication questions Follow-up/Referrals: Elisabet Stevenson PA-C [Primary Care Provider] - Diet: Regular Addtl Attending Provider Instructions: Follow up with PMD and podiatry in 1 week. Pending Studies at Discharge: No Stand-Alone Forms: My iW[employer], Smoking Cessation Medications and DC Order Prescriptions: New clindamycin HCl 300 mg capsule 300 mg PO TID 7 Days Qty: 21 0RF Continued gabapentin 300 mg capsule 300 mg PO QID Qty: 120 5RF glucagon 1 mg/0.2 mL auto-injector 1 mg subcut UD PRN (Reason: prn) (DME) FreeStyle Darnell 3 Sensor Device See Rx Instructions .Route Rx Instructions: change every 14 days atorvastatin 20 mg tablet 20 mg PO QPM (DME) pen needle, diabetic [BD Ultra-Fine Short Pen Needle] 31 gauge x 5/16" needle See Rx Instructions .Route Rx Instructions: Inject insulin daily (DME) OneTouch Ultra Test Strip See Rx Instructions .Route Rx Instructions: Test blood sugar two times daily carvedilol 25 mg tablet 25 mg PO BID Rx Instructions: must administer with a meal/food metformin 1,000 mg tablet 1,000 mg PO BID insulin glargine [Lantus Solostar U-100 Insulin] 100 unit/mL (3 mL) insulin pen 20 unit subcut AMPM Patient Comments: Patient takes 30 units in am; 30 units in evening. losartan 100 mg tablet 100 mg PO QAM amlodipine 10 mg tablet 10 mg PO QAM Lokelma 10 gram powder in packet 10 g PO WK Rx Instructions: wednesdays...pt admits it was ordered 3x/week but never told patient if he is still to be taking it...so he just takes it weekly aspirin 81 mg Tablet,Chewable 81 mg PO QAM insulin aspart U-100 [Novolog FlexPen U-100 Insulin] 100 unit/mL (3 mL) insulin pen 0 unit subcut TID MDD 50 UNITS Rx Instructions: SLIDING SCALE...PT USUALLY TAKES 10 UNITS WITH BREAKFAST, 14 UNITS WITH DINNER & 16 UNITS WITH SUPPER Discharge Orders: Discharge Order (Routine); Ordered 09/17/24 Ordered By: Avery Kilgore Admission Data Admit Date/Time: 09/14/24 22:20 Attending Provider: Avery Kilgore Admit Provider: Ganesh Zacarias Primary Care Provider: Elisabet Stevenson Other Providers: Ganesh Zacarias; Afshin Morales; Saloni Roldan; Madiha Davis; Lyndsey Oglesby; Dora Corcoran; Alana Anderson; Pearl Olson Hospital Stay Data Consultations 09/14/24 22:39 ED Decision to Admit Stat 09/15/24 03:19 Consult Podiatry Routine 09/16/24 08:03 Consult Infectious Diseases Routine Procedures Performed Operation Date: 09/16/24 11:45 Actual Procedures p Right Third Toe Partial Amputation(Right) - Afshin Morales DPM Diagnostic Imagining Performed 09/15/24 12:43 MRI Foot [MR foot RT w/o con] Urgent 09/16/24 10:27 Angio leg [EV angio LE RT] Routine Pending Results Patient Have Any Pending Studies at Discharge: No Discharge Instructions Given to Patient (Per Discharging Provider) Follow up with PMD and podiatry in 1 week. Total Time Total Time Spent Total Time Spent (In Minutes): 50 Coding Level of Care Code 44906 INP/OBS DISCH >30 MIN Diagnoses Open wound of third toe of right foot, initial encounter S91.104A Encounter type: initial encounter Cellulitis of third toe of right foot L03.031 Chronic kidney disease, stage 3b N18.32
--- NOTE | 2024-09-17 11:06 | Infectious Disease Progress Nt ---
Date of Service September 17, 2024 Assessment & Plan (1) Osteomyelitis of third toe of right foot: (2) Cellulitis of foot, right: Plan Problems: #R third toe osteomyelitis s/p partial third toe amputation (09/16/24) #DM2 #PAD #CKD #Allergy to amox/clav: vomiting Micro: 09/14 BCx x2: NGTD Abx: Cefepime 09/14 - present Dapto 09/14 - present Ceftriaxone 09/14 68 yo M with DM2, peripheral neuropathy, CKD, HTN, HLD, PAD who presented on 09/14 with worsening pain and redness in R third toe with overlying dry eschar, found to have R third toe osteomyelitis. States his symptoms worsened after having some debridement performed in the outpatient setting a few weeks ago. On presentation, pt was afebrile, VSS with WBC 10, Cr 1.68. MRI L foot showed soft tissue swelling and edema, and bone marrow edema involving third middle and distal phalanges compatible with acute osteomyelitis. He is currently on dapto, cefepime. Podiatry took pt to OR 09/16/24 for partial third toe amputation. No cultures sent. Path pending. Reportedly has presumed surgical cure of osteomyelitis Recommendations: -Given presumed surgical cure, can discharge with doxycycline 100 mg PO BID plus cefuroxime 500 mg PO q12h through 09/22 to complete a 7 day course of antibiotics post-op -Follow-up final path -Continue good wound care Discussed with hospitalist. Will sign off. Admission and Anticipated Discharge Date Admission Date: September 14, 2024 Subjective This patient recommendation is based on a telemedicine consult request which was completed asynchronously through chart review and information provided by the primary physician. The patient was not seen or examined today. The evaluation is consultative in nature and all patient care and treatment decisions can either be accepted or rejected by the patient's primary hospital-based treating physician using their own independent medical judgment for their patient. Time Spent Reviewing Chart: 11 - 20 minutes Results & Data Vital Signs (Past 12 Hours) Vital Signs Temp Pulse Pulse Pulse Resp BP BP 09/17/24 08:03 66 09/17/24 07:32 36.8 C 73 16 124/58 L 09/17/24 03:30 36.9 C 65 18 145/61 H Pulse Ox O2 Del Method 09/17/24 08:03 09/17/24 07:32 93 Room Air 02/14/25 03:30 96 Room Air Laboratory Results Short CBC 09/17/24 Range/Units 07:12 WBC 9.17 (4.8-10.8) K/ul Hgb 10.0 L (14.0-18.0) g/dl Hct 30.1 L (42.0-52.0) % Plt Count 278 (130-400) K/uL BMP 09/17/24 07:12 Sodium 137 Potassium 4.8 Chloride 107 Carbon Dioxide 24 BUN 31 H Creatinine 1.80 H Glucose 163 H Calcium 8.4 L Liver Function 09/17/24 Range/Units 07:12 Total Bilirubin 0.3 (0.2-1.0) mg/dl AST 9 L (13-39) U/L ALT 6 L (7-52) U/L Alkaline Phosphatase 69 (34-104) U/L Albumin 3.3 L (3.4-5.0) gm/dl Medications Administered Current Inpatient Medications Acetaminophen (Acetaminophen 500 Mg Tab) 1,000 mg PO Q8H PRN PRN Reason: Pain Stop: 10/15/24 16:01 Last Admin: 09/17/24 06:14 Dose: 1,000 mg Amlodipine Besylate (Amlodipine Besylate 5 Mg Tab) 10 mg PO QAM ILEANA Stop: 10/15/24 08:59 Last Admin: 09/17/24 09:34 Dose: 10 mg Aspirin (Aspirin 81 Mg Chew) 81 mg PO QAM ILEANA Stop: 10/15/24 08:59 Last Admin: 09/17/24 09:34 Dose: 81 mg Atorvastatin Calcium (Atorvastatin 20 Mg Tab) 20 mg PO QPM ILEANA Stop: 10/15/24 20:59 Last Admin: 09/16/24 20:40 Dose: 20 mg Carvedilol (Carvedilol 25 Mg Tab) 25 mg PO BID ILEANA Stop: 10/15/24 08:59 Last Admin: 09/17/24 09:34 Dose: 25 mg Dextrose (Dextrose 50% 50 Ml Syringe) 25 - 50 ml IV UD PRN; Protocol PRN Reason: Hypoglycemia Protocol Stop: 10/15/24 01:39 Gabapentin (Gabapentin 300 Mg Cap) 300 mg PO QID ILEANA Stop: 10/15/24 08:59 Last Admin: 09/17/24 09:34 Dose: 300 mg Glucagon (Glucagon For Inj 1 Mg Vial) 1 mg SQ UD PRN; Protocol PRN Reason: Hypoglycemia Protocol Stop: 10/15/24 01:39 Glucose (Glucose 40% Gel 15 Gm Tube) 15 - 30 gm PO UD PRN; Protocol PRN Reason: Hypoglycemia Protocol Stop: 10/15/24 01:39 Glucose (Glucose 10 Tab/Tube) 4 - 8 tab PO UD PRN; Protocol PRN Reason: Hypoglycemia Protocol Stop: 10/15/24 01:39 Heparin Sodium (Porcine) (Heparin Sod 5,000 Unit/0.5 Ml Vial) 5,000 units SQ Q12 ILEANA Stop: 10/15/24 08:59 Last Admin: 09/17/24 09:33 Dose: 5,000 units Daptomycin 450 mg/ Syringe 9 mls @ 4.5 mls/min IV Q24H [facility]; Protocol Stop: 10/26/24 22:59 Last Admin: 09/16/24 22:50 Dose: 4.5 mls/min Cefepime HCl (Maxipime 2000mg) 2,000 mg in 20 mls @ 5 mls/min IV Q12H [facility]; Protocol Stop: 10/27/24 08:59 Last Admin: 09/17/24 09:34 Dose: 5 mls/min Lactated Ringer's (Lr) 500 mls @ 15 mls/hr IV .Q24H [facility] Stop: 09/17/24 11:44 Last Admin: 09/16/24 13:43 Dose: 15 mls/hr Lactated Ringer's (Lr) 1,000 mls @ 15 mls/hr IV .Q24H ILEANA Stop: 09/17/24 11:44 Last Infusion: 09/16/24 11:45 Dose: Infused Insulin Aspart (Insulin Aspart Per Unit Charge) 0 units SC ACHS ILEANA Stop: 10/16/24 05:59 Last Admin: 09/17/24 09:33 Dose: 5 units Insulin Glargine (Lantus Per Unit Charge) 20 units SQ BID ILEANA Stop: 10/15/24 08:59 Last Admin: 09/17/24 09:33 Dose: 20 units Losartan Potassium (Losartan Potassium 50 Mg Tab) 100 mg PO QAM ILEANA Stop: 10/15/24 08:59 Last Admin: 09/17/24 09:35 Dose: 100 mg Miscellaneous (Carbohydrates For Hypoglycemia ) 15 - 30 gm PO UD PRN PRN Reason: Hypoglycemia Protocol Stop: 10/15/24 01:39 Morphine Sulfate (Morphine Sulfate 4 Mg/Ml 1 Ml Carp\Vial) 4 mg IV Q1H PRN PRN Reason: Pain Stop: 09/28/24 19:57 Last Admin: 09/15/24 13:26 Dose: 4 mg Ondansetron HCl (Ondansetron Inj 2 Mg/Ml 2 Ml Vial) 4 mg IV Q6H PRN PRN Reason: Nausea Stop: 10/15/24 01:39 Last Admin: 09/15/24 16:03 Dose: 4 mg Oxycodone/Acetaminophen (Oxycodone/Acetaminophen 5mg/325mg Tab) 1 tab PO Q4H PRN PRN Reason: Pain Stop: 10/01/24 07:55 Last Admin: 09/17/24 09:24 Dose: 1 tab
[2024-09-17 12:00] VITALS: RESP 18; TEMP 97.3; O2SAT 96
[2024-09-17 13:50] VITALS: BP 124/58
[2024-09-17] MEDS ORDERED: oxyCODONE/ACETAMINOPHEN 5mg/325mg TAB PO STA (13:53)
[2024-09-17 14:53] VITALS: PULSE 67
--- NOTE | 2024-09-22 05:54 | Coding Query ---
CODING QUERY To promote full compliance with coding requirements relating to patient care, provider participation is requested in all cases of launch leader uncertainty. Please assist us with the question(s) below: Coding Question(s): Pt came in with open wound from shoe rubbing, cellulitis. Found to have osteomyelitis. Discharge diagnosis lists this as a Diabetic Foot infection. Please clarify if this a "traumatic" wound from the shoe rubbing or if this is a diabetic ulcer. Physician's Response(s): ( ) Traumatic open wound from shoe rubbing ( ) Diabetic Ulcer: If possible, please check the box that provides the specific stage of the diabetic ulcer ( ) limited to breakdown of skin ( ) with fat layer exposed ( ) with necrosis of muscle ( ) with necrosis of bone ( ) with muscle involvement without evidence of necrosis ( ) with bone involvement without evidence of necrosis ( ) with other specified severity ( ) with unspecified severity Thank you Daily Arambula Principal Diagnosis: "that condition established after study, to be chiefly responsible for occasioning the admission of the patient to the hospital for care." Co-Existing Principal Diagnosis: "when two or more diagnoses equally meet the criteria for principal diagnosis as determined by the circumstances of admission, diagnostic work up, and/or therapy provided, and the Alphabetic Index, Tabular List, or another coding guideline does not provide sequencing direction, any one of the diagnoses may be sequenced first." "When the physician has documented what appears to be a current diagnosis in the body of the record, but has not included the diagnosis in the final diagnostic statement, the physician should be asked whether the diagnosis should be added." ([facility] 2 QTR90. p3-4) HIGINIO
--- NOTE | 2024-10-12 08:51 | Coding Query ---
WOUND CLARIFICATION To promote full compliance with coding requirements relating to patient care, physician participation is requested in all cases of school program director uncertainty. Please assist us with the question(s) below: Pt came in with open wound from shoe rubbing, cellulitis. Found to have osteomyelitis. Discharge diagnosis lists this as a Diabetic Foot infection. Please clarify if this is a "traumatic" wound from the shoe rubbing or if this is a diabetic ulcer. Please place an "X" within the parenthesis (x). If other, please specify. Please provide further clarification on the type of wound/ulcer. Physician's Response(s): ( ) Traumatic open wound from shoe rubbing ( X ) Diabetic Ulcer: If possible, please check the box that provides the specific stage of the diabetic ulcer ( ) limited to breakdown of skin ( ) with fat layer exposed ( ) with necrosis of muscle (X) with necrosis of bone ( ) with muscle involvement without evidence of necrosis ( ) with bone involvement without evidence of necrosis ( ) with other specified severity ( ) with unspecified severity ( ) Blister ( ) Other: (Please specify) The codes I used for billing on our end, from my EMR, were 1. Chronic ulcer of right toe L97.514: Non-pressure chronic ulcer of other part of right foot with unspecified severity 2. Acute osteomyelitis of phalanx of toe- Right M86.171: Other acute osteomyelitis, right ankle and foot 3. Cellulitis of right lower limb L03.115: Cellulitis of right lower limb Thank you Daily SYLVESTER
== END 2024-09-17 16:44 | disposition home or self-care (01) | DRG 580 ==
LOC: ED 15:35 → SUATTDRO 22:20 → EDINP 22:20 → 2W 09-15 01:41

== ENCOUNTER 2024-11-29 14:32 | Inpatient (IN) ==
[2024-11-29 15:20] LABS: Basophils # (auto) 0.03 K/uL (0.00-0.20); Basophils % (auto) 0.2 %; Eosinophils # (auto) 0.21 K/uL (0.00-0.50); Eosinophils % (auto) 1.4 %; Hematocrit (blood only) 33.2 % (42.0-52.0); Hemoglobin 10.9 g/dl (14.0-18.0); Immature Granulocytes # (auto) 0.11 K/uL (0.01-0.20); Immature Granulocytes % (auto) 0.7 %; Lymphocytes # (auto) 0.97 K/uL (1.20-3.40); Lymphocytes % (auto) 6.5 %; Mean Corpuscular Hemoglobin 29.9 pg (25.0-34.0); Mean Corpuscular Hgb Conc 32.8 g/dL (32.0-36.0); Mean Platelet Volume 9.9 fL (9.4-12.4); Monocytes # (auto) 1.46 K/uL (0.11-0.59); Monocytes % (auto) 9.8 %; Neutrophils # (auto) 12.18 K/uL (1.40-6.50); Neutrophils % (auto) 81.4 %; Platelet Count 501 K/uL (130-400); RDW Coefficient of Variation 13.7 % (11.5-14.5); RDW Standard Deviation 45.7 fL (36.4-46.3); Red Blood Count 3.65 M/uL (4.70-6.10); White Blood Count 14.96 K/ul (4.8-10.8)
--- NOTE | 2024-11-29 15:37 | Emergency Department Note ---
History of Present Illness General Chief complaint: Weakness Stated complaint: AMPUTATION SIGHT PAINFUL PASSING OUT Time Seen by Provider: 11/29/24 15:26 History of Present Illness Maximum Pain Intensity: 10 This is a 68-year-old male with a history of osteomyelitis of the right distal foot, requiring surgery who presents to the emergency department via private vehicle with complaints of "right foot pain". Patient notes that this pain has been ongoing for some time now, however has worsened over the past few days. He notes he has not been sleeping at nighttime particular for the past 5-6 nights. at bedside also provides history. The patient does feel overall ill and like he may pass out. No headache. No chest pain. No shortness of breath. Patient just finished oral doxycycline per patient and per review of the outpatient fill history. Patient notes he was at his vascular office today in [place] and had ultrasounds of his extremities but noted significant pain and was referred here. Home Medications Medication Instructions Recorded Confirmed Type atorvastatin 20 mg tablet 20 mg PO QPM 03/03/23 11/29/24 History blood sugar diagnostic (OneTouch 03/03/23 10/13/24 History Ultra Test strips) pen needle, diabetic 31 gauge x 03/03/23 10/13/24 History 5/16" (BD Ultra-Fine Short Pen Needle) carvedilol 25 mg tablet 25 mg PO BID 03/05/23 11/29/24 History metformin 1,000 mg tablet 1,000 mg PO BID 04/18/23 11/29/24 History blood-glucose sensor (FreeStyle 05/13/23 10/13/24 History Darnell 3 Sensor device) glucagon 1 mg/0.2 mL subcutaneous 1 mg subcut UD PRN prn 05/13/23 11/29/24 History auto-injector insulin glargine 100 unit/mL (3 20 unit subcut AMPM 05/13/23 11/29/24 History mL) subcutaneous pen (Lantus Solostar U-100 Insulin) gabapentin 300 mg capsule 300 mg PO QID #120 caps 08/23/24 11/29/24 Rx aspirin 81 mg chewable tablet 81 mg PO QAM 09/14/24 11/29/24 History insulin aspart U-100 100 unit/mL 0 unit subcut TID 09/14/24 11/29/24 History (3 mL) subcutaneous pen (Novolog FlexPen U-100 Insulin aspart) losartan 100 mg tablet 100 mg PO QAM 09/14/24 11/29/24 History sodium zirconium cyclosilicate 10 10 g PO WK 09/14/24 11/29/24 History gram oral powder packet (Lokelma) clopidogrel 75 mg tablet 75 mg PO QPM 10/13/24 11/29/24 History amlodipine 10 mg tablet 10 mg PO QAM 11/29/24 11/29/24 History Allergies Allergy/AdvReac Type Severity Reaction Status Date / Time latex Allergy Severe Blister Verified 11/04/24 10:00 amoxicillin AdvReac Intermediate Vomiting Verified 11/04/24 10:00 clavulanic acid AdvReac Intermediate Vomiting Verified 11/04/24 10:00 [From Augmentin] Past Med/Surg History Problem List (Updated 11/29/24 @ 23:39 by Palmer Dukes PA-C) Right foot infection (Acute) History of foot surgery (Acute) Foot pain, right (Acute) Thrombocytosis History of transmetatarsal amputation of right foot Encounter for pre-operative examination Poorly-controlled hypertension Abnormal ankle brachial index (DIANNE) (Acute) Arthritis of right knee Carotid artery stenosis left carotid endarterectomy 07/2023 Dyslipidemia Vitamin D deficiency Hypertension Type 2 diabetes mellitus Organic impotence (Acute) Medical History Hx of carotid artery stenosis left carotid endarterectomy 07/2023 Dyslipidemia Hypertension History of nephrolithiasis Type 2 diabetes mellitus Osteomyelitis of third toe of right foot Diabetic peripheral neuropathy associated with type 2 diabetes mellitus Chronic kidney disease, stage 3b follows with dr. holden (last seen october 2024) History of kidney injury Orchalgia Spermatocele Surgical History Hx of lymph node excision right arm pit, due to swelling- "years ago" History of amputation of toe (09/2024) right third toe Hx of lithotripsy History of total right knee replacement (11/2023) History of carotid endarterectomy (07/2023) 07/2023, [facility] Yousif History of cardiac cath [facility] many years ago, unsure of date, no stents- follows with dr. [facility] at [facility] () Family History Aunt Diabetes Uncle Diabetes Social History Smoking Status: Former smoker Tobacco Type: Cigarettes Age Quit Using Tobacco: 30; Second Hand Exposure: No; Do You Dip or Chew Tobacco: No; Tobacco Cessation Education Requested by Patient: No Hx Alcohol Use: No Hx Substance Use: No Preferred Language: Croatian Communication Ability: Effective Visual Impairment: Limited Hearing Ability: Hard of Hearing Product Director Required: No Beliefs That Will Affect Care: None marital status: Current Living Situation: Spouse Other Information That Helps Us Care for You: No Feels Safe at Home: Yes Safety Concerns: Feels Safe At This Time Diet: regular caffeine: Yes Assistive Devices: Walker Review of Systems A total of 10 systems reviewed and were otherwise negative Physical Exam Vital Signs Vital Signs - 24 hr 11/29/24 14:44 11/29/24 16:09 11/29/24 16:09 Temperature 36.6 C Temperature Source Oral Pulse Rate 77 70 Pulse Rate from SpO2 Sensor Pulse Rhythm Regular Respiratory Rate 18 18 Respiratory Effort / Characteristics Non-Labored Spontaneous Respiratory Depth Normal Respiratory Pattern Regular Blood Pressure 120/68 Blood Pressure Mean 85 Pulse Oximetry 94 95 95 Oxygen Delivery Method Room Air Room Air Room Air Sepsis Recent Fever Within 48 Hours No Sepsis New/Unexplained Change in Mental Status N/A Sepsis Action Taken by Nursing No Action Required 11/29/24 16:10 11/29/24 16:30 11/29/24 16:36 Temperature Temperature Source Pulse Rate 69 67 73 Pulse Rate from SpO2 Sensor 67 Pulse Rhythm Respiratory Rate 20 16 Respiratory Effort / Characteristics Respiratory Depth Respiratory Pattern Blood Pressure 148/76 H 122/61 Blood Pressure Mean 100 81 Pulse Oximetry 96 91 Oxygen Delivery Method Room Air Room Air Sepsis Recent Fever Within 48 Hours Sepsis New/Unexplained Change in Mental Status Sepsis Action Taken by Nursing 11/29/24 17:36 Temperature Temperature Source Pulse Rate 66 Pulse Rate from SpO2 Sensor 65 Pulse Rhythm Respiratory Rate 16 Respiratory Effort / Characteristics Respiratory Depth Respiratory Pattern Blood Pressure 138/72 Blood Pressure Mean 94 Pulse Oximetry 95 Oxygen Delivery Method Room Air Sepsis Recent Fever Within 48 Hours Sepsis New/Unexplained Change in Mental Status Sepsis Action Taken by Nursing VITAL SIGNS - Vital signs and nursing notes were reviewed. Stable and afebrile. GENERAL -68-year-old male appearing his stated age who is in no acute distress. Communicates well with provider and answers questions appropriately. SKIN -right distal foot dressing in place, dressing was removed. There are sick Steri-Strips noted overlying the transverse distal foot wound. There is some purulence noted. Erythema noted. There is increased warmth to this region. HEAD - NC/AT. EYES - Sclera anicteric. LUNGS - CTA CARDIAC - RRR EXTREMITIES - No clubbing or peripheral cyanosis. The right lower extremity is appropriately warm and well-perfused. Left and right dorsalis pedis pulse here is within normal limits at time of exam. +5/5 strength noted in UE/LE bilaterally. Skin as above. NEUROLOGIC - Cranial nerves II through XII grossly intact. Sensory intact to light touch throughout. PSYCH -alert, oriented to pleasant on exam Course Administered Medications Acetaminophen (Acetaminophen 500 Mg Tab) 1,000 mg PO Q8 ILEANA Stop: 12/29/24 21:59 Last Admin: 11/29/24 21:39 Dose: 1,000 mg Documented By: MARION Atorvastatin Calcium (Atorvastatin 20 Mg Tab) 20 mg PO QPM ILEANA Stop: 12/29/24 20:59 Last Admin: 11/29/24 21:40 Dose: 20 mg Documented By: MARION Clopidogrel Bisulfate (Clopidogrel Bisulfate 75 Mg Tab) 75 mg PO QPM ILEANA Stop: 12/29/24 20:59 Last Admin: 11/29/24 21:40 Dose: 75 mg Documented By: MARION Gabapentin (Gabapentin 300 Mg Cap) 300 mg PO QID ILEANA Stop: 12/29/24 20:59 Last Admin: 11/29/24 21:40 Dose: 300 mg Documented By: MARION Insulin Aspart (Insulin Aspart Per Unit Charge) 0 units SC ACHS ILEANA Stop: 12/29/24 20:59 Last Admin: 11/29/24 21:38 Dose: Not Given Documented By: MARION Co-signed By: RAFAEL Insulin Glargine (Lantus Per Unit Charge) 16 units SQ BID ILEANA Stop: 12/29/24 20:59 Last Admin: 11/29/24 21:38 Dose: 16 units Documented By: MARION Co-signed By: RAFAEL Oxycodone HCl (Oxycodone Hcl Ir 5 Mg Tab (Immediate Release)) 5 mg PO Q6H PRN PRN Reason: Pain Stop: 12/13/24 20:04 Last Admin: 11/29/24 20:31 Dose: 5 mg Documented By: MARION Discontinued Medications Hydromorphone HCl (Hydromorphone Inj 0.5 Mg/0.5 Ml Syr) 0.25 mg IV NOW STA Stop: 11/29/24 15:45 Last Admin: 11/29/24 16:02 Dose: 0.25 mg Documented By: Sodium Chloride (Nss) 500 mls @ 125 mls/hr IV .Q4H STA Stop: 11/29/24 20:55 Last Infusion: 11/29/24 21:42 Dose: Infused Documented By: Admin: 11/29/24 17:12 Dose: 125 mls/hr Documented By: Cefepime HCl (Maxipime 2000mg) 2,000 mg in 20 mls @ 5 mls/min IV NOW STA; Protocol Stop: 11/29/24 17:09 Last Admin: 11/29/24 17:12 Dose: 5 mls/min Documented By: Miscellaneous (Patient's Height &/Or Weight Needed) 1 each N/A Q2H STA Stop: 11/29/24 20:21 Last Admin: 11/29/24 20:22 Dose: 1 each Documented By: MARION Ondansetron HCl (Ondansetron Inj 2 Mg/Ml 2 Ml Vial) 4 mg IV NOW STA Stop: 11/29/24 15:45 Last Admin: 11/29/24 16:02 Dose: 4 mg Documented By: Oxycodone HCl (Oxycodone Hcl Ir 5 Mg Tab (Immediate Release)) 5 mg PO NOW STA Stop: 11/29/24 18:29 Last Admin: 11/29/24 18:37 Dose: 5 mg Documented By: Medical Decision Making Laboratory Data 11/29/24 15:03 11/29/24 15:03 Lab Results 11/29/24 11/29/24 11/29/24 Range/Units 15:03 15:45 17:53 WBC 14.96 H (4.8-10.8) K/ul RBC 3.65 L (4.70-6.10) M/uL Hgb 10.9 L (14.0-18.0) g/dl Hct 33.2 L (42.0-52.0) % MCV 91.0 (80.0-100.0) fL MCH 29.9 (25.0-34.0) pg MCHC 32.8 (32.0-36.0) g/dL RDW Std Deviation 45.7 (36.4-46.3) fL RDW Coeff of Flavia 13.7 (11.5-14.5) % Plt Count 501 H (130-400) K/uL MPV 9.9 (9.4-12.4) fL Immature Gran % (Auto) 0.7 % Neut % (Auto) 81.4 % Lymph % (Auto) 6.5 % [place] % (Auto) 9.8 % Eos % (Auto) 1.4 % Baso % (Auto) 0.2 % Neut # (Auto) 12.18 H (1.40-6.50) K/uL Lymph # (Auto) 0.97 L (1.20-3.40) K/uL [place] # (Auto) 1.46 H (0.11-0.59) K/uL Eos # (Auto) 0.21 (0.00-0.50) K/uL Baso # (Auto) 0.03 (0.00-0.20) K/uL Immature Gran # (Auto) 0.11 (0.01-0.20) K/uL Sodium 137 (136-145) mmol/L Potassium 5.0 (3.5-5.1) mmol/L Chloride 105 (98-107) mmol/L Carbon Dioxide 25 (21-32) mmol/L Anion Gap 7 (3-11) BUN 36 H (6-23) mg/dl Creatinine 1.85 H (0.6-1.4) mg/dl Est Cr Clr Drug Dosing Not Reportable eGFR 38.70 BUN/Creatinine Ratio 19.5 (10-20) Glucose 101 H (70-99(Fasting)) mg/dl Lactate 1.0 (0.4-2.0) mmol/L Calcium 8.6 (8.6-10.3) mg/dl Total Bilirubin 0.3 (0.2-1.0) mg/dl AST 10 L (13-39) U/L ALT 7 (7-52) U/L Alkaline Phosphatase 59 (34-104) U/L Total Protein 6.7 (6.0-8.3) gm/dl Albumin 3.6 (3.4-5.0) gm/dl Globulin 3.1 (2.5-4.0) gm/dl Albumin/Globulin Ratio 1.2 (0.9-2) Procalcitonin 0.07 (0-0.5) ng/ml Nasal Screen MRSA (PCR) Negative (Negative) Imaging Data Radiologist's Impression: Foot X-Ray 11/29/24 15:44 XR foot RT min 3V routine CLINICAL HISTORY: Right foot pain. COMPARISON: Right foot radiographs September 14, 2024 and MRI of the right foot 09/15/2024. FINDINGS: There are postoperative findings consistent with right transmetatarsal amputation. There is mild osseous irregularity of the distal remaining aspects of the first and second metatarsals. There are no unexpected radiopaque foreign bodies. Extensive vascular calcifications incidentally noted. There are soft tissue swelling. No acute fractures are present. IMPRESSION: Status post right transmetatarsal amputation. Mild osseous irregularity of the distal remaining aspects of the first and second metatarsals. This may be postsurgical however acute osteomyelitis could appear similar. ACT 112: Negative or not required by law. Electronically signed by: Al Obrien M.D. 11/29/2024 3:58 PM MDM Narrative Patient was seen and evaluated as above in room D02b. Review was performed of triage nursing notes and vital signs. I did review pertinent previous visits and patient history. After obtaining a thorough history and physical examination the above work up was performed. Patient presents to us today for evaluation of right foot pain. Patient did have recent partial amputation to the right foot performed at this facility. He had a follow-up today with vascular specialist in [place] at specialists office (Dr. Medina) to undergo ultrasounds and possible f/u with tomorrow. Patient notes that there was significant right foot pain earlier today however at time of my examination patient notes much improvement. at bedside notes the foot was cooler earlier today however on my examination the patient does have intact right lower extremity pulse at the dorsalis pedis and a warm and well-perfused foot. In fact, the distal right foot is quite warm and erythematous. There is some purulence at the incision. This was cultured. Options of care were discussed with the patient. IV access was established. Labs were drawn. IV Dilaudid ordered for pain, Zofran for nausea. IV fluids also ordered for hydration. I am concerned for infection. Labs here reveal leukocytosis 14.96. Anemia noted with hemoglobin of 10.9. There is CKD, creatinine 1.85. No evidence of liver failure. Procalcitonin detectable but within normal range. Blood culture and wound culture pending at this time. I did obtain a right foot x-ray. Postsurgical versus acute osteomyelitis noted. I also added a lactate which returned normal. 1553-I called [phone] and left a message to review with infectious disease that was previously consulted for this patient. No answer. Phone number was left for callback. Thus far, no callback. I also had staff reach out to the patient's vascular center that he was seen earlier today to obtain his ultrasound reports that were performed today. Thus far we have not received the reports. I do believe that further evaluation and management in the inpatient setting is warranted. I reviewed previous cultures. I reviewed previous antibiotics administered at this facility. I did order IV cefepime for this patient. I discussed the case with the hospitalist service. Please refer to further documentation regarding his stay. GCS: 15 In the evaluation and treatment of this patient the following differential diagnoses were entertained: Osteomyelitis, ischemic limb, cellulitis, abscess, among others. I then was faxed imaging/vascular studies for the patient. These were reviewed at 1538 HRS. This was PVR and segmental pressures as well as arterial Doppler studies of the lower extremities dated August of this year, unfortunately not the studies performed earlier today although may not be read yet. It appears that the studies performed today are not available yet. I will update the Doppler study of the RLE arterial system today Ultrasound right lower extremity arterial Doppler ordered and pending at time of admission. However, upon repeat assessment the right lower extremity continues to be appropriately warm and well-perfused. No neurovascular deficits appreciated at this time. 1729-I spoke with Dr. Oglesby of infectious disease. Current recommendation is to hold off on MRSA coverage, will obtain screening swab unless the patient comes acutely ill noting beyond his current state then MRSA coverage will be needed. MRSA screen recommended and ordered. We will trend cultures. Recommendation was also to consult podiatry podiatry and obtain MRI to further clarify the potential osteomyelitis. We will continue the already initiated cefepime. I also conversed via [employer] message with Dr. Morales, patient's lower extremity surgeon. He will see the patient during his admission tomorrow. Impression & Plan Foot pain, right, History of foot surgery, Right foot infection Discharge Plan Visit Data Chief Complaint: Weakness Stated Complaint: AMPUTATION SIGHT PAINFUL PASSING OUT ED Provider: Stefano Polanco ED Midlevel Provider: Palmer Dukes Discharge Problem: Foot pain, right, History of foot surgery, Right foot infection Patient Disposition: Admitted As Inpatient Condition: Good Discharge Instructions Interventions: ED Discharge Assessment Last Done: 11/29/24 19:53
[2024-11-29 15:42] LABS: Alanine Aminotransferase 7 U/L (7-52); Albumin Globulin Ratio 1.2 (0.9-2); Albumin Level 3.6 gm/dl (3.4-5.0); Alkaline Phosphatase 59 U/L (34-104); Anion Gap 7 (3-11); Aspartate Aminotransferase 10 U/L (13-39); BUN Creatinine Ratio 19.5 (10-20); Bilirubin,Total 0.3 mg/dl (0.2-1.0); Blood Urea Nitrogen 36 mg/dl (6-23); Calcium 8.6 mg/dl (8.6-10.3); Carbon Dioxide 25 mmol/L (21-32); Chloride 105 mmol/L (98-107); Globulin 3.1 gm/dl (2.5-4.0); Glucose 101 mg/dl (70-99(Fasting)); Sodium 137 mmol/L (136-145); Total Protein 6.7 gm/dl (6.0-8.3)
--- NOTE | 2024-11-29 16:01 | XRay Report ---
XR foot RT min 3V routine CLINICAL HISTORY: Right foot pain. COMPARISON: Right foot radiographs September 14, 2024 and MRI of the right foot 09/15/2024. FINDINGS: There are postoperative findings consistent with right transmetatarsal amputation. There i s mild osseous irregularity of the distal remaining aspects of the first and second metatarsals. Ther e are no unexpected radiopaque foreign bodies. Extensive vascular calcifications incidentally noted. There are soft tissue swelling. No acute fractures are present. IMPRESSION: Status post right transmetatarsal amputation. Mild osseous irregularity of the distal rem aining aspects of the first and second metatarsals. This may be postsurgical however acute osteomyeli tis could appear similar. ACT 112: Negative or not required by law. Electronically signed by: Al Obrien M.D. 11/29/2024 3:58 PM
[2024-11-29] MEDS: HYDROmorphone INJ 0.5 MG/0.5 ML SYR IV STA (16:02)
[2024-11-29] MEDS: ONDANSETRON INJ 2 MG/ML 2 ML VIAL IV STA (16:02)
[2024-11-29] MEDS: SODIUM CHLORIDE 0.9% 500 ML IV STA (17:12)
[2024-11-29] MEDS: CEFEPIME 2000MG 2,000 MG/20 ML SYR IV STA (17:12)
--- NOTE | 2024-11-29 17:18 | Emergency Department Note ---
ED Visit Note I was consulted by the Advanced Practice Provider, Palmer Dukes PA-C. I personally made/approved the management plan and take responsibility for the patient management. I performed a substantive portion of the visit. This includes the aspects of: -History/Physical/Personally seeing the patient -MDM .
--- NOTE | 2024-11-29 17:39 | History & Physical Report ---
Date of Service November 29, 2024 Assessment & Plan (1) History of transmetatarsal amputation of right foot: (2) Thrombocytosis: (3) Hyperkalemia: (4) Chronic kidney disease, stage 3b: (5) Diabetic peripheral neuropathy associated with type 2 diabetes mellitus: Plan Brennan is a 68-year-old male with past medical history of hypertension, carotid artery stenosis, PAD status post angioplasty, hyperkalemia, CKD stage IIIb, vitamin D deficiency, hyperlipidemia, diabetes mellitus insulin requiring, peripheral neuropathy, obesity and right foot osteomyelitis with recent transmetatarsal amputation on 11/04/[address] Morales. Presents with weakness and concerns for worsening infection. Initial evaluation shows mild leukocytosis with negative lactate and procal and foot xray with mild osseous irregularity of the distal remaining aspects of the first and second metatarsals, concerning for osteomyelitis. Patient will be admitted for podiatry evaluation, IV antibiotics and ID evaluation. #Hx of transmetatarsal amputation / Wound infection - Follows with Dr. Morales, recent transmetatarsal amputation 11/04/24. No prior culture data available. Picture in the ED note from 11/29. Continue cefepime MRSA Nares pending Wound culture pending Blood cultures pending ID consulted - recommend MRI Foot (ordered), hold MRSA coverage trend cultures, but can add if patient acutely decompensates Podiatry Consulted - Dr. Morales. will plan to see AM 11/30. If OR operation was needed, will be . Arterial Doppler done at [place] 11/29 - if unable to get records on 11/30 then consider repeat at this facility Pain control: schedule tylenol, prn oxycodone PO #DMT2 with neuropathy Home regimen: lantus 20units BID + 16units short acting with meals , metformin BID continue lantus 16 units BID and SSI with CF 15 and CR 5 A1c 7.6 07/2024, recheck in AM Continue gabapentin #Thrombocytosis Platelets 501 on admission - this does not seem to be an issue in the past, suspect reactive to infection AM CBC #Hyperkalemia Chronic issue - takes lokelma weekly. K 5.0 on admission Will give Lokelma dose in AM to prevent K elevation preventing surgical intervention this stay #CKD3 Cr 1.85 on admission, appears baseline Avoid nephrotoxins #HTN/CAD Continue amlodipine, aspirin, atorvastatin, carvedilol, clopidogrel Hold losartan in case needs OR intervention Dispo: Admit to med/surg DVT Proh: Fatumanox Code Status: FULL CODE Case discussed with Dr. Morales. Family updated at bedside 11/29. History of Present Illness Chief Complaint: weakness Primary Care Provider: Elisabet Stevenson PA-C Brennan is a 68-year-old male with past medical history of hypertension, carotid artery stenosis, PAD status post angioplasty, hyperkalemia, CKD stage IIIb, vitamin D deficiency, hyperlipidemia, diabetes mellitus insulin requiring, peripheral neuropathy, obesity and right foot osteomyelitis with recent transmetatarsal amputation on 11/04/[address] Morales. Presents today with weakness and feeling like his is going to pass out, along with pain in his right foot. He recently completed a course of doxycycline outpatient - last dose was today, 11/29. He was seen at his vascular doctor - Dr. Adam Jim. States that between today and his surgery he has had one day where he felt good. Denies fevers at home, but does feel weak and has many complaints of pain. He had initially been trialing Tylenol without relief. Was given an prescription for tramadol that initially took the edge off but very minimally. Then used some old oxycodone and was able to has a little reprieve. He states pain gets alittle better with elevation, but that is only temporarily. Denies abdominal pain. Has maintained his appetite. no urinary issues. Denies ETOH or smoking. ED course: Cefepime 2g IV Zofran 4mg IV Dilaudid 0.25mg IV Allergies Allergy/AdvReac Type Severity Reaction Status Date / Time latex Allergy Severe Blister Verified 11/04/24 10:00 amoxicillin AdvReac Intermediate Vomiting Verified 11/04/24 10:00 clavulanic acid AdvReac Intermediate Vomiting Verified 11/04/24 10:00 [From Augmentin] Home Medications Medication Instructions Recorded Confirmed Type atorvastatin 20 mg tablet 20 mg PO QPM 03/03/23 11/29/24 History blood sugar diagnostic (OneTouch 03/03/23 10/13/24 History Ultra Test strips) pen needle, diabetic 31 gauge x 03/03/23 10/13/24 History 5/16" (BD Ultra-Fine Short Pen Needle) carvedilol 25 mg tablet 25 mg PO BID 03/05/23 11/29/24 History metformin 1,000 mg tablet 1,000 mg PO BID 04/18/23 11/29/24 History blood-glucose sensor (FreeStyle 05/13/23 10/13/24 History Darnell 3 Sensor device) glucagon 1 mg/0.2 mL subcutaneous 1 mg subcut UD PRN prn 05/13/23 11/29/24 History auto-injector insulin glargine 100 unit/mL (3 20 unit subcut AMPM 05/13/23 11/29/24 History mL) subcutaneous pen (Lantus Solostar U-100 Insulin) gabapentin 300 mg capsule 300 mg PO QID #120 caps 08/23/24 11/29/24 Rx aspirin 81 mg chewable tablet 81 mg PO QAM 09/14/24 11/29/24 History insulin aspart U-100 100 unit/mL 0 unit subcut TID 09/14/24 11/29/24 History (3 mL) subcutaneous pen (Novolog FlexPen U-100 Insulin aspart) losartan 100 mg tablet 100 mg PO QAM 09/14/24 11/29/24 History sodium zirconium cyclosilicate 10 10 g PO WK 09/14/24 11/29/24 History gram oral powder packet (Lokelma) clopidogrel 75 mg tablet 75 mg PO QPM 10/13/24 11/29/24 History amlodipine 10 mg tablet 10 mg PO QAM 11/29/24 11/29/24 History Past Med/Surg History Problem List (Updated 11/29/24 @ 18:06 by Noemy De La Cruz PA-C) Thrombocytosis History of transmetatarsal amputation of right foot Encounter for pre-operative examination Poorly-controlled hypertension Abnormal ankle brachial index (DIANNE) (Acute) Arthritis of right knee Carotid artery stenosis left carotid endarterectomy 07/2023 Dyslipidemia Vitamin D deficiency Hypertension Type 2 diabetes mellitus Organic impotence (Acute) Medical History Hx of carotid artery stenosis left carotid endarterectomy 07/2023 Dyslipidemia Hypertension History of nephrolithiasis Type 2 diabetes mellitus Osteomyelitis of third toe of right foot Diabetic peripheral neuropathy associated with type 2 diabetes mellitus Chronic kidney disease, stage 3b follows with dr. holden (last seen october 2024) History of kidney injury Orchalgia Spermatocele Surgical History Hx of lymph node excision right arm pit, due to swelling- "years ago" History of amputation of toe (09/2024) right third toe Hx of lithotripsy History of total right knee replacement (11/2023) History of carotid endarterectomy (07/2023) 07/2023, Lopez Yousif History of cardiac cath [facility] many years ago, unsure of date, no stents- follows with dr. wood at [facility] () Family History Aunt Diabetes Uncle Diabetes Social History Smoking Status: Never smoker Tobacco Type: Cigarettes Age Quit Using Tobacco: 30; Second Hand Exposure: No; Do You Dip or Chew Tobacco: No; Hx Alcohol Use: No Hx Substance Use: No Preferred Language: Bolivian Communication Ability: Effective Visual Impairment: Limited Hearing Ability: Hard of Hearing Shaker Repairer Required: No Beliefs That Will Affect Care: None marital status: Current Living Situation: Spouse Feels Safe at Home: Yes Diet: regular caffeine: Yes Assistive Devices: Denture - Upper, Denture - Lower and Glasses Review of Systems Review of Systems: All systems reviewed & are unremarkable except as noted in Subjective Physical Exam Physical Exam: General: NAD, VS as above, sitting up in bed Resp: normal respiratory effort, lungs coarse in the bases CV: RRR, no murmur, Abd: normal bowel sounds, non tender, soft Extremities: Moves all extremities, right foot dressing not taken down, picture in the ER provider note. Extremity is warm Neuro: A&O x3, Results & Data Results & Data Vital Signs (Past 12 Hours) Vital Signs Temp Pulse Resp BP Pulse Ox O2 Del Method 11/29/24 16:36 73 11/29/24 16:10 69 20 148/76 H 96 Room Air 11/29/24 16:09 70 18 95 Room Air 11/29/24 16:09 95 Room Air 11/29/24 14:44 97.9 F 77 18 120/68 94 Room Air Laboratory Results cbc, chemistry reviewed lactate reviewed procal reviewed Supervising Physician Co-Signing Physician Notes Patient was seen and examined independently I discussed the case with Noemy GUZMAN I reviewed pertinent past medical social family history and also the plan of care and agree with the plan of care. Patient with recent transmetatarsal amputation of his right foot by Dr. Morales who was sent in by Dr. Morales due to poor progression of healing in the office. Reportedly he was seen by Dr. Pool's office on 11/29/2024 with an arterial Doppler of those results were not present. Dr. De Dios wishes to pursue intravenous antibiotic therapy with decisions made about potential revascularization. The patient has significant pain and discomfort to his foot he has phantom pain of his great toe. Examination the patient's foot is wrapped however I can ask his DP and PT areas to assess for pulse which cannot be found. The foot is warm however capillary refill is delayed I can palpate pulses on his left foot. He has no edema cardiac exam is distant but regular lungs are clear Concern for continued diabetic foot infection with possible arterial insufficiency of his right foot with recent transmetatarsal surgery for consideration if need revascularization or revision of surgical site. Continue antibiotics at this time and local pain control awaiting surgical consultation both for podiatry and vascular surgery Due to the postoperative timeframe plain films of his foot cannot rule out osteomyelitis pending MRI scan to evaluate for osteomyelitis of the ends of the metatarsals. Patient also has mild anemia and chronic kidney disease stage III Any exceptions will be noted below PG Care Time/CCT Total # of Minutes Spent Total Time Spent with Patient: Total time spent is greater than 50% in coordination of care (as documented) at patient's floor/unit and/or counseling patient: Coding Level of Care Code 31513 INT INP/OBS CARE 3/75MIN Diagnoses History of transmetatarsal amputation of right foot Z89.431 Thrombocytosis D75.839 Hyperkalemia E87.5 Chronic kidney disease, stage 3b N18.32 Diabetic peripheral neuropathy associated with type 2 diabetes mellitus E11.42
[2024-11-29] MEDS: oxyCODONE HCL IR 5 MG TAB (IMMEDIATE RELEASE) PO STA (18:37)
[2024-11-29] MEDS ORDERED: GLUCOSE 40% GEL 15 GM TUBE PO PRN (20:05)
[2024-11-29] MEDS ORDERED: CARBOHYDRATES FOR HYPOGLYCEMIA PO PRN (20:05)
[2024-11-29] MEDS ORDERED: DEXTROSE 50% 50 ML SYRINGE IV PRN (20:05)
[2024-11-29] MEDS ORDERED: GLUCAGON FOR INJ 1 MG VIAL SQ PRN (20:05)
[2024-11-29] MEDS ORDERED: GLUCOSE 10 TAB/TUBE PO PRN (20:05)
[2024-11-29] MEDS: Patient's HEIGHT &/or WEIGHT Needed STA (20:22)
[2024-11-29] MEDS: oxyCODONE HCL IR 5 MG TAB (IMMEDIATE RELEASE) PO PRN (20:31)
[2024-11-29] MEDS: LANTUS PER UNIT CHARGE SQ SCH (21:38)
[2024-11-29] MEDS: INSULIN ASPART PER UNIT CHARGE SC SCH (21:38)
[2024-11-29] MEDS: ACETAMINOPHEN 500 MG TAB PO SCH (21:39)
[2024-11-29] MEDS: GABAPENTIN 300 MG CAP PO SCH (21:40)
[2024-11-29] MEDS: ATORVASTATIN 20 MG TAB PO SCH (21:40)
[2024-11-29] MEDS: CLOPIDOGREL BISULFATE 75 MG TAB PO SCH (21:40)
--- NOTE | 2024-11-30 00:23 | Magnetic Resonance Report ---
Exam(s): MRI RIGHT FOOT Without Contrast EXAM: MR Right Lower Extremity Without Intravenous Contrast, Foot CLINICAL HISTORY: Reason for exam: r/o osteo. TECHNIQUE: Multiplanar magnetic resonance images of the right foot without intravenous contrast. COMPARISON: No relevant prior studies available. FINDINGS: Patient is status post transmetatarsal amputation of the forefoot. There are no bone marrow signal changes within the residual metatarsal bones or the imaged tarsal bones to suggest acute osteomyelitis. There is no acute fracture or dislocation. There is soft tissue swelling and irregularity at the amputation site with confluent regions of subcutaneous fluid signal. Confluent fluid-signal measures 3.5 x 1.3 x 3.5 cm anterior to metatarsal bones 1-2. IMPRESSION: 1. Status post transmetatarsal amputation of the forefoot. No evidence of osteomyelitis. 2. Soft tissue swelling and irregularity at the amputation site. Confluent fluid signal anterior to metatarsal bones 1-2 measuring up to 3. 5 cm. Correlate with timing of surgery. The above appearance could represent postoperative change with hematoma/seroma. Soft tissue infection and abscess are not excluded. Electronically signed by: Quita Stewart M.D. 11/30/24 00:22 AM
[2024-11-30 04:30] LABS: Hematocrit (blood only) 30.3 % (42.0-52.0); Hemoglobin 9.7 g/dl (14.0-18.0); Mean Corpuscular Hemoglobin 29.3 pg (25.0-34.0); Mean Corpuscular Volume 91.5 fL (80.0-100.0); Mean Platelet Volume 9.7 fL (9.4-12.4); Platelet Count 356 K/uL (130-400); RDW Coefficient of Variation 13.8 % (11.5-14.5); Red Blood Count 3.31 M/uL (4.70-6.10); White Blood Count 10.59 K/ul (4.8-10.8)
[2024-11-30 04:46] LABS: BUN Creatinine Ratio 21.3 (10-20); Calcium 8.3 mg/dl (8.6-10.3); Creatinine Clr Calc Pharmacy 41.1 ml/min; Potassium 4.9 mmol/L (3.5-5.1)
[2024-11-30] MEDS: CEFEPIME 2000MG 2,000 MG/20 ML SYR IV SCH (06:17)
[2024-11-30] MEDS: HYDROmorphone INJ 1 MG/ML SYRINGE IV PRN (07:55)
[2024-11-30] MEDS: SODIUM ZIRCONIUM CYCLOSILICATE 10 GM PACKET PO SCH (07:58)
[2024-11-30] MEDS: amLODIPine BESYLATE 5 MG TAB PO SCH (07:59)
[2024-11-30] MEDS: ASPIRIN 81 MG CHEW PO SCH (07:59)
[2024-11-30] MEDS: carvediloL 25 MG TAB PO SCH (07:59)
[2024-11-30] MEDS: ENOXAPARIN INJ 40 MG/0.4 ML SYR SQ SCH (07:59)
[2024-11-30 08:13] LABS: Estimated Average Glucose 163 mg/dl; Hemoglobin A1C 7.3 % (4.5-5.6)
--- NOTE | 2024-11-30 10:50 | Infectious Disease Consult ---
Date of Consultation November 30, 2024 Assessment & Plan (1) Foot pain, right: (2) History of transmetatarsal amputation of right foot: (3) Type 2 diabetes mellitus: Plan 68yo M with h/o PAD s/p angioplasty, CKD III, T2DM, peripheral neuropathy, HTN, admission 09/2024 with right third toe OM s/p partial 3rd toe amputation and dcd on 7d abx (cx Serratia), increasing diffuse critical ischemia of digits and ongoing infection of right hallux s/p right TMA on 11/04/24 who presented on 11/29 with weakness and pain in right foot. Recently completed a course of doxycycline ending 11/29. Denied fevers, abdominal pain. In the ED, he was afebrile, vss. Initial labs with WBC 14.96, Cr 1.85. AST/ALT wnl. Lactate neg. PCT 0.07. MRSA screen neg. XR right foot with mild osseous irregularity of the distal remaining aspects of the first and second metatarsals. MRI right foot with no e/o OM, soft tissue swelling and irregularity at the amputation site; confluent fluid signal anterior to metatarsal bones 1-2 measuring up to 3.5 cm; could represent postoperative change with hematoma/seroma, soft tissue infection and abscess are not excluded. He was given cefepime. ID consulted 11/30. MRI is negative for OM. Dr. Morales was present when I evaluated patient, and he thinks the findings on MRI is of a seroma. I dont appreciate any cellulitic changes on examination today. I did review image of the foot from ER note and patient says that his foot was not red and looked the same as yesterday, has not had any redness. Im going to therefore stop antibiotics and monitor off, podiatry aware. # Right foot pain # R foot 3.5cm fluid collection # Recent right TMA # h/o T2DM - Shayy stopped antibiotics since he doesnt appear to have a SSTI, MRI without OM, and podiatry feels findings is more likely seroma - monitor off antibiotics - if he does develop any s/o sepsis or any worsening of his foot, then resume cefepime (or alternative depending on cultures) and pursue further assessment of the 3.5cm collection Will continue to follow. If questions or concerns, contact via [facility] or Infectious Disease Call Center . Lyndsey Oglesby MD [facility], Division of Infectious Diseases Consultation Information Consultation was provided via telemedicine using two-way real-time interactive telecommunication between the patient and the telemedicine provider. For the duration of the visit, the provider was performing the assessment from a different facility than the patient. This includesuse of bluetooth stethoscope forauscultationperformed by the telepresenter that the telemedicine provider can hear if described in the physical exam. Center Receptionist contact information: Please call [facility] Call Center . (Phone Number For Physician Use Only) After establishing a telemedicine visit, patient was: Patient was verified with two unique identifiers, Patient/authorized rep acknowledged consent and understanding and Gave permission to continue telehealth session Time Spent with Patient: Initial => 75 min History of Present Illness Reason for Consultation: concern for osteomyelitis Attending Physician: Raul Aguilar MD History of Present Illness 68yo M with h/o PAD s/p angioplasty, CKD III, T2DM, peripheral neuropathy, HTN, admission 09/2024 with right third toe OM s/p partial 3rd toe amputation and dcd on 7d abx (cx Serratia), increasing diffuse critical ischemia of digits and ongoing infection of right hallux s/p right TMA on 11/04/24 who presented on 11/29 with weakness and pain in right foot. Recently completed a course of doxycycline ending 11/29. Denied fevers, abdominal pain. In the ED, he was afebrile, vss. Initial labs with WBC 14.96, Cr 1.85. AST/ALT wnl. Lactate neg. PCT 0.07. MRSA screen neg. XR right foot with mild osseous irregularity of the distal remaining aspects of the first and second metatarsals. MRI right foot with no e/o OM, soft tissue swelling and irregularity at the amputation site; confluent fluid signal anterior to metatarsal bones 1-2 measuring up to 3.5 cm; could represent postoperative change with hematoma/seroma, soft tissue infection and abscess are not excluded. He was given cefepime. ID consulted 11/30. On evaluation, he reports having burning pain in his foot at the site of where he had his TMA since his surgery. Some improvement in pain today. He denies having had any rash or redness at the site. Has had bloody drainage. No fevers or chills. Had been on a 1 week course of doxycycline prior to admission. His primary concern was the pain. No diarrhea, vomiting, abdominal pain, chest pain, SOB. Allergies Allergy/AdvReac Type Severity Reaction Status Date / Time latex Allergy Severe Blister Verified 11/04/24 10:00 amoxicillin AdvReac Intermediate Vomiting Verified 11/04/24 10:00 clavulanic acid AdvReac Intermediate Vomiting Verified 11/04/24 10:00 [From Augmentin] Home Medications Medication Instructions Recorded Confirmed Type atorvastatin 20 mg tablet 20 mg PO QPM 03/03/23 11/29/24 History blood sugar diagnostic (OneTouch 03/03/23 10/13/24 History Ultra Test strips) pen needle, diabetic 31 gauge x 03/03/23 10/13/24 History 5/16" (BD Ultra-Fine Short Pen Needle) carvedilol 25 mg tablet 25 mg PO BID 03/05/23 11/29/24 History metformin 1,000 mg tablet 1,000 mg PO BID 04/18/23 11/29/24 History blood-glucose sensor (FreeStyle 05/13/23 10/13/24 History Darnell 3 Sensor device) glucagon 1 mg/0.2 mL subcutaneous 1 mg subcut UD PRN prn 05/13/23 11/29/24 History auto-injector insulin glargine 100 unit/mL (3 20 unit subcut AMPM 05/13/23 11/29/24 History mL) subcutaneous pen (Lantus Solostar U-100 Insulin) gabapentin 300 mg capsule 300 mg PO QID #120 caps 08/23/24 11/29/24 Rx aspirin 81 mg chewable tablet 81 mg PO QAM 09/14/24 11/29/24 History insulin aspart U-100 100 unit/mL 0 unit subcut TID 09/14/24 11/29/24 History (3 mL) subcutaneous pen (Novolog FlexPen U-100 Insulin aspart) losartan 100 mg tablet 100 mg PO QAM 09/14/24 11/29/24 History sodium zirconium cyclosilicate 10 10 g PO WK 09/14/24 11/29/24 History gram oral powder packet (Lokelma) clopidogrel 75 mg tablet 75 mg PO QPM 10/13/24 11/29/24 History amlodipine 10 mg tablet 10 mg PO QAM 11/29/24 11/29/24 History Patient History Medical History Hx of carotid artery stenosis left carotid endarterectomy 07/2023 Dyslipidemia Hypertension History of nephrolithiasis Type 2 diabetes mellitus Osteomyelitis of third toe of right foot Diabetic peripheral neuropathy associated with type 2 diabetes mellitus Chronic kidney disease, stage 3b follows with dr. holden (last seen october 2024) History of kidney injury Orchalgia Spermatocele Surgical History Hx of lymph node excision right arm pit, due to swelling- "years ago" History of amputation of toe (09/2024) right third toe Hx of lithotripsy History of total right knee replacement (11/2023) History of carotid endarterectomy (07/2023) 07/2023, Lopez Yousif History of cardiac cath [facility] many years ago, unsure of date, no stents- follows with dr. wood at [facility] () Family History Aunt Diabetes Uncle Diabetes Social History Smoking Status: Former smoker Tobacco Type: Cigarettes Age Quit Using Tobacco: 30; Second Hand Exposure: No; Do You Dip or Chew Tobacco: No; Tobacco Cessation Education Requested by Patient: No Hx Alcohol Use: No Hx Substance Use: No Preferred Language: Kazakh Communication Ability: Effective Visual Impairment: Limited Hearing Ability: Hard of Hearing Finish Carpenter Required: No Beliefs That Will Affect Care: None marital status: Current Living Situation: Spouse Other Information That Helps Us Care for You: No Feels Safe at Home: Yes Safety Concerns: Feels Safe At This Time Diet: regular caffeine: Yes Assistive Devices: Walker Review of System 10-point review of systems reviewed and are negative except for as above. Physical Exam Physical Exam: General: Awake, alert, no acute distress HEENT: NC/AT, EOMI, mmm Neck: supple Lungs: respirations non-labored Heart: nl peripheral perfusion Abdomen: soft, NT/ND Ext: right foot with healing wound, no erythema, dressing with some serosanguinous drainage Skin: no rash Neuro: moving all extremities Results & Data Vital Signs (Past 12 Hours) Vital Signs Temp Pulse Resp BP Pulse Ox O2 Del Method 11/30/24 09:04 Room Air 11/30/24 07:19 36.5 C 70 16 181/94 H 93 Room Air Laboratory Results Labs reviewed. Diagnostic Findings Imaging reviewed. (3) Type 2 diabetes mellitus Diabetes mellitus intermission coordinator insulin use: with residential use Diabetes mellitus complication status: with neurologic complications Diabetes mellitus complication detail: with mononeuropathy Qualified Code(s): E11.41 - Type 2 diabetes mellitus with diabetic mononeuropathy; Z79.4 - [facility] (current) use of insulin
--- NOTE | 2024-11-30 13:31 | Podiatry Consultation ---
Date of Consultation November 30, 2024 Assessment & Plan (1) Right foot infection: (2) History of foot surgery: (3) Foot pain, right: (4) History of transmetatarsal amputation of right foot: (5) Abnormal ankle brachial index (DIANNE): Plan Patient was examined and evaluated. We discussed at length the etiology and treatment of his right foot transmetatarsal imitation site. There is no significant evidence of cellulitis noted today in theere is no deep probing of the ulceration/dehiscence. Steri-Strips were removed and the foot was cleaned and redressed with a Betadine wet to dry dressing by nursing. He should benefit from follow-up with vascular medicine admission and would likely benefit from wound care should his dehiscence progress. Otherwise, without any significant evidence of infection at this time, he can likely avoid surgical debridement at this point. We will continue to monitor him and if he has developed any signs of infection, will plan surgical intervention for . Thank you for the consult, were always happy to help out when possible. History of Present Illness Reason for Consultation: Right foot dehiscence/pain Attending Physician: Raul Aguilar MD History of Present Illness Patient seen at bedside this morning. He states that he had been feeling worse over the end of the weekend and presented to the emergency department with increasing symptoms associated with systemic infection. We had last seen him on Friday for suture removal from his transmetatarsal Amputation stump. He had Been scheduled to follow up with his vascular surgeon in the near future as well for further examination and evaluation of his blood flow. He does have arterial disease leading to gangrene of his first and third toe of this right foot. It had become nonviable recently, leading to the transmetatarsal amputation 3-4 weeks ago. Over that time, his pain has remained, That was notably improved after his most recent revascularization. The pain has continued to increase since that time. Currently, after a day or so of antibiotics, he was starting to feel better and his pain does seem to be more main fear in this hospitalization. He denies any other recent medical history change the does state he has seen Dr. Medina, his vascular surgeon, Yesterday. Allergies Allergy/AdvReac Type Severity Reaction Status Date / Time latex Allergy Severe Blister Verified 11/04/24 10:00 amoxicillin AdvReac Intermediate Vomiting Verified 11/04/24 10:00 clavulanic acid AdvReac Intermediate Vomiting Verified 11/04/24 10:00 [From Augmentin] Home Medications Medication Instructions Recorded Confirmed Type atorvastatin 20 mg tablet 20 mg PO QPM 03/03/23 11/29/24 History blood sugar diagnostic (OneTouch 03/03/23 10/13/24 History Ultra Test strips) pen needle, diabetic 31 gauge x 03/03/23 10/13/24 History 5/16" (BD Ultra-Fine Short Pen Needle) carvedilol 25 mg tablet 25 mg PO BID 03/05/23 11/29/24 History metformin 1,000 mg tablet 1,000 mg PO BID 04/18/23 11/29/24 History blood-glucose sensor (FreeStyle 05/13/23 10/13/24 History Darnell 3 Sensor device) glucagon 1 mg/0.2 mL subcutaneous 1 mg subcut UD PRN prn 05/13/23 11/29/24 History auto-injector insulin glargine 100 unit/mL (3 20 unit subcut AMPM 05/13/23 11/29/24 History mL) subcutaneous pen (Lantus Solostar U-100 Insulin) gabapentin 300 mg capsule 300 mg PO QID #120 caps 08/23/24 11/29/24 Rx aspirin 81 mg chewable tablet 81 mg PO QAM 09/14/24 11/29/24 History insulin aspart U-100 100 unit/mL 0 unit subcut TID 09/14/24 11/29/24 History (3 mL) subcutaneous pen (Novolog FlexPen U-100 Insulin aspart) losartan 100 mg tablet 100 mg PO QAM 09/14/24 11/29/24 History sodium zirconium cyclosilicate 10 10 g PO WK 09/14/24 11/29/24 History gram oral powder packet (Lokelma) clopidogrel 75 mg tablet 75 mg PO QPM 10/13/24 11/29/24 History amlodipine 10 mg tablet 10 mg PO QAM 11/29/24 11/29/24 History Patient History Medical History Hx of carotid artery stenosis left carotid endarterectomy 07/2023 Dyslipidemia Hypertension History of nephrolithiasis Type 2 diabetes mellitus Osteomyelitis of third toe of right foot Diabetic peripheral neuropathy associated with type 2 diabetes mellitus Chronic kidney disease, stage 3b follows with dr. holden (last seen october 2024) History of kidney injury Orchalgia Spermatocele Surgical History Hx of lymph node excision right arm pit, due to swelling- "years ago" History of amputation of toe (09/2024) right third toe Hx of lithotripsy History of total right knee replacement (11/2023) History of carotid endarterectomy (07/2023) 07/2023, Lopez Yousif History of cardiac cath [facility] many years ago, unsure of date, no stents- follows with dr. wood at [facility] () Family History Aunt Diabetes Uncle Diabetes Social History Smoking Status: Former smoker Tobacco Type: Cigarettes Age Quit Using Tobacco: 30; Second Hand Exposure: No; Do You Dip or Chew Tobacco: No; Tobacco Cessation Education Requested by Patient: No Hx Alcohol Use: No Hx Substance Use: No Preferred Language: [place] Communication Ability: Effective Visual Impairment: Limited Hearing Ability: Hard of Hearing Category Consultant Required: No Beliefs That Will Affect Care: None marital status: Current Living Situation: Spouse Other Information That Helps Us Care for You: No Feels Safe at Home: Yes Safety Concerns: Feels Safe At This Time Diet: regular caffeine: Yes Assistive Devices: Cane, Crutches, Special Shoe and Walker Review of Systems Review of Systems: All systems reviewed & are unremarkable except as noted in HPI & below Constitutional: + fever, + fatigue and + malaise; no chi lls Eyes: no problem reported Ear, Nose, Mouth, Throat: no problem reported Respiratory: no problem reported Cardiovascular: + edema; no problem reported Gastrointestinal: no nausea, no vomiting and no problem reported Musculoskeletal: no problem reported Integumentary: + skin ulcer, + wounds and + erythema Neurologic: + loss of sensation, + numbness and + pa resthesia; no generalized weakness Psychiatric: no problem reported Physical Exam Physical Exam: right lower extremity focused exam: DP/PT pulses nonpalpable. Advanced trophic changes are noted to the feet with diffuse thinning of the skin, absent hair growth, and pitting edema to the lower extremity. His transmetatarsal imitation site still has Steri-Strips applied from his recent suture removal. There is evidence of superficial wound dehiscence to the central aspect and medial aspect of the incision, though this does appear superficial with no visible or palpable underlying metatarsals noted. No purulent drainage is appreciated. No active drainage or bleeding noted. Constitutional: WD/WN, vitals as above + ill appearing Eyes: PERRL, conjunctivae normal, anicteric sclerae ENMT: external ear and nose normal, oropharynx normal Neck: trachea midline, no thyromegaly normal visual inspection Respiratory: normal respiratory effort; no respiratory distress Cardiovascular: Rate/Rhythm: regular rate and regular rhythm Vessels: + posterior tibial pulses abnormal and + dorsalis pedis pulses abnormal (Monophasic on exam) Chest (Breasts): Chest: normal inspection of chest Gastrointestinal (Abdomen): Inspection/Auscultation: abdomen normal to inspection Percussion/Palpation: + abdomen tender and abdomen soft; no hepatosplenomegaly Musculoskeletal: no cyanosis or clubbing, extremities motor strength 5/5 Head/Neck/Chest: normocephalic and head atraumatic Extremities: extremities normal to inspection, + limited ROM of lower extremity and + foot abnormality (Right TMA noted) Gait: + antalgic gait and + limp Skin: + ulcer (Dehiscence to the right TMA), + wound, + dry skin and + erythema Neurologic: awake; + abnormal touch/pain/proprioception, + abnormal sensation to monofilament and no focal motor deficits Pain out of proportion to stimulus is noted on palpation of the right foot and surgical site, consistent with his level of vascular disease. Psychiatric: A+Ox3, euthymic affect Results & Data Vital Signs (Past 12 Hours) Vital Signs Temp Pulse Resp BP Pulse Ox O2 Del Method 11/30/24 09:04 Room Air 11/30/24 07:19 36.5 C 70 16 181/94 H 93 Room Air
--- NOTE | 2024-11-30 15:51 | Hospitalist Progress Note ---
Date of Service November 30, 2024 Assessment & Plan (1) History of transmetatarsal amputation of right foot: (2) Thrombocytosis: (3) Hyperkalemia: (4) Chronic kidney disease, stage 3b: (5) Diabetic peripheral neuropathy associated with type 2 diabetes mellitus: Plan Brennan is a 68-year-old male with past medical history of hypertension, carotid artery stenosis, PAD status post angioplasty, hyperkalemia, CKD stage IIIb, vitamin D deficiency, hyperlipidemia, diabetes mellitus insulin requiring, peripheral neuropathy, obesity and right foot osteomyelitis with recent transmetatarsal amputation on 11/04/[address] Morales. Presents with weakness and concerns for worsening infection. Initial evaluation shows mild leukocytosis with negative lactate and procal and foot xray with mild osseous irregularity of the distal remaining aspects of the first and second metatarsals, concerning for osteomyelitis. remains admitted to control pain #Hx of transmetatarsal amputation / Wound infection - Follows with Dr. Morales, recent transmetatarsal amputation 11/04/24. wound culture enterobacter and Klebsiella on Zosyn ID consulted - MRI does not show osteo, antibiotics on hold Podiatry Consulted - Dr. Morales. recommend possible vascular eval Pt required parenteral pain control #DMT2 with neuropathy Home regimen: lantus 20units BID + 16units short acting with meals , metformin BID continue lantus 16 units BID and SSI with CF 15 and CR 5 A1c 7.6 07/2024, recheck 7.3 Continue gabapentin #Thrombocytosis suspect reactive improving #Hyperkalemia Chronic issue - takes lokelma weekly. K 5.0 on admission Will give Lokelma dose in AM to prevent K elevation preventing surgical intervention this stay #CKD3 Cr 1.85 on admission, appears baseline Avoid nephrotoxins #HTN/CAD Continue amlodipine, aspirin, atorvastatin, carvedilol, clopidogrel resume losartan in case needs OR intervention family updated at bedside Admission and Anticipated Discharge Date Admission Date: November 29, 2024 Subjective pt had significant pain and needed parenteral pain control otherwise podiatry is pleased with improvement Physical Exam Physical Exam: cardiac is regular lungs unlabored foot is wrapped, pulses not palp, but foot is warm Results & Data Results & Data Vital Signs (Past 12 Hours) Vital Signs Temp Pulse Resp BP Pulse Ox O2 Del Method 11/30/24 14:19 97.7 F 65 16 135/71 92 Room Air 11/30/24 09:04 Room Air 11/30/24 07:19 97.7 F 70 16 181/94 H 93 Room Air Laboratory Results wound culture enterobacter/ Klebsiella, blood Neg to date reviewed chemistry reviewed cbc PG Care Time/CCT Total # of Minutes Spent Total Time Spent with Patient: Total time spent is greater than 50% in coordination of care (as documented) at patient's floor/unit and/or counseling patient: Coding Level of Care Code 61692 SUB INP/OBS CARE 3/50MIN Diagnoses History of transmetatarsal amputation of right foot Z89.431 Thrombocytosis D75.839 Hyperkalemia E87.5 Chronic kidney disease, stage 3b N18.32 Diabetic peripheral neuropathy associated with type 2 diabetes mellitus E11.42
[2024-11-30] MEDS: LOSARTAN POTASSIUM 50 MG TAB PO ONE (17:28)
--- NOTE | 2024-11-30 19:07 | Ultrasound Report ---
EXAM: US arterial duplex LE RT CLINICAL HISTORY: evaluation for blood flow. TECHNIQUE: Ultrasound examination of the right lower extremities' arteries with ankle brachial indices was performed in real time and duplex. One or more of the following were performed: spectral analysis, resistive index, waveform analysis, and pulsed Doppler. COMPARISON: None. FINDINGS: Vessel Peak Velocity Right (cm/sec) Common Femoral Artery (PULP GRINDER FEEDER) 84.7/4?triphasic Deep Femoral Artery (DPA) 97.5/11.1?biphasic Superficial Femoral Artery (SFA) SFA proximal 91.4/0.0?biphasic SFA mid 106.2/8.2 ?biphasic SFA distal 103.4/0.0 ?biphasic Popliteal Artery (POP A) Popliteal proximal 81.2/0.0 ?triphasic Popliteal distal 91.1/0.0 ?triphasic Posterior Tibial Artery (SUPERVISOR CORE DRILLING), SUPERVISOR CORE DRILLING proximal 33.9?Biphasic SUPERVISOR CORE DRILLING med 48.9?Biphasic SUPERVISOR CORE DRILLING distal 133.2/15.5?Biphasic Anterior Tibial Artery (REKHA), distal REKHA proximal 58.0/8.5 ?biphasic REKHA med 57.1/5.3 ?biphasic REKHA distal 67.5/7.6 ?biphasic Peroneal Artery Peroneal proximal 103.7/5.2?Biphasic Peroneal mid 152.8/14.5?Biphasic Peroneal distal 150.6/14.5?Biphasic Dorsalis Pedis Artery (DPA) 59.2/6.4?Biphasic Ankle brachial index is not measured. Mild atherosclerosis with mild mural plaques. The peak systolic velocities are within the normal limits. No evidence of significant stenosis (50%) or hemodynamically significant lesions. Triphasic/ Biphasic waveform pattern observed throughout the evaluated segments. Collateral Circulation: No significant collateral circulation noted, indicative of chronic arterial occlusion. IMPRESSION: 1. Mild atherosclerosis with mild mural plaques. 2. No evidence of significant stenosis or occlusion. Electronically signed by Sotero Arambula 11-30-2024 7:07 PM
[2024-11-30] MEDS: HYDROmorphone INJ 0.5 MG/0.5 ML SYR IV PRN (21:04)
[2024-12-01] MEDS: MELATONIN 3 MG TAB PO PRN (00:33)
[2024-12-01] MEDS: LOSARTAN POTASSIUM 50 MG TAB PO SCH (08:11)
[2024-12-01] MEDS: ONDANSETRON INJ 2 MG/ML 2 ML VIAL IV PRN (09:32)
--- NOTE | 2024-12-01 10:06 | Vascular Medicine Consultation ---
Date of Consultation December 01, 2024 Assessment & Plan (1) PAD (peripheral artery disease): 2. Slow healing right TMA surgical wound 3. Type 2 diabetes with peripheral neuropathy 4. Stage III CKD 5. Anemia Slow healing right TMA wound without signs of active infection. Pedal pulses nonpalpable but distal foot appears reasonably perfused. Reviewed patient's recent arterial duplex. Patent SFA/popliteal arteries with multiphasic waveforms. Below the knee appears he appears to have three-vessel runoff. Distal FUEL HOUSE ATTENDANT heavily calcified with diminished monophasic waveforms and suspect some distal FUEL HOUSE ATTENDANT disease. Overall do not feel patient's pain is secondary to his vascular disease. Suspect arterial perfusion should be adequate to heal current surgical wound but possible blood supply could be optimized by further intervention to distal FUEL HOUSE ATTENDANT. We discussed possible angiogram to further evaluate. Patient prefers to have this done with his primary vascular person Dr. Medina closer to home. Feel this is reasonable and has follow-up scheduled in the short-term. From a vascular standpoint stable for discharge. Continue current aspirin, clopidogrel and ASCVD risk factor modification. Please contact us if we can help in the future. History of Present Illness Attending Physician: Raul Aguilar MD History of Present Illness Mr. Dwyer is a very pleasant 68-year-old man seen in hospital today due to slow healing right TMA surgical wound in the setting of PAD. He has a history of type 2 diabetes with peripheral neuropathy, stage III CKD, also with hypertension, dyslipidemia, carotid artery disease post endarterectomy 07/2023. Previously seen by vascular medicine at wound center 04/2024 in the setting of slow healing wound over right great toe after nail was removed. Arterial duplex at that time showed multiphasic waveforms throughout with no hemodynamically significant stenosis but significantly reduced toe pressures (right TBI 0.09, 18 mmHg). Initial observation recommended. Since that time has had nonhealing wounds involving first, third digits on right foot, followed by Dr. Dyson of podiatry. Developed osteomyelitis and after partial amputations eventually underwent TMA 11/04/[address] Morales. Vascular care during this time with Dr. Medina. Per patient has had 3 endovascular interventions. Per documentation it appears had CSI atherectomy/angioplasty to PT and angioplasty to AT. Patient reports that third intervention was unsuccessful. Had repeat noninvasive study last week. Patient readmitted 11/29/2024 with increased right lower extremity pain, weakness. MRI negative for osteomyelitis. No active signs of infection. Seen by ID and thought not to need additional antibiotics. Seen by Dr. Morales and no plans for additional surgical intervention. Repeat arterial duplex obtained last night showed widely patent METAL BUILDING ASSEMBLER through popliteal artery with multiphasic waveforms. Below the knee vessels patent with monophasic waveforms, DPA patent. We think we got a Allergies Allergy/AdvReac Type Severity Reaction Status Date / Time latex Allergy Severe Blister Verified 11/04/24 10:00 amoxicillin AdvReac Intermediate Vomiting Verified 11/04/24 10:00 clavulanic acid AdvReac Intermediate Vomiting Verified 11/04/24 10:00 [From Augmentin] Home Medications Medication Instructions Recorded Confirmed Type atorvastatin 20 mg tablet 20 mg PO QPM 03/03/23 11/29/24 History blood sugar diagnostic (OneTouch 03/03/23 10/13/24 History Ultra Test strips) pen needle, diabetic 31 gauge x 03/03/23 10/13/24 History 5/16" (BD Ultra-Fine Short Pen Needle) carvedilol 25 mg tablet 25 mg PO BID 03/05/23 11/29/24 History metformin 1,000 mg tablet 1,000 mg PO BID 04/18/23 11/29/24 History blood-glucose sensor (FreeStyle 05/13/23 10/13/24 History Darnell 3 Sensor device) glucagon 1 mg/0.2 mL subcutaneous 1 mg subcut UD PRN prn 05/13/23 11/29/24 History auto-injector insulin glargine 100 unit/mL (3 20 unit subcut AMPM 05/13/23 11/29/24 History mL) subcutaneous pen (Lantus Solostar U-100 Insulin) gabapentin 300 mg capsule 300 mg PO QID #120 caps 08/23/24 11/29/24 Rx aspirin 81 mg chewable tablet 81 mg PO QAM 09/14/24 11/29/24 History insulin aspart U-100 100 unit/mL 0 unit subcut TID 09/14/24 11/29/24 History (3 mL) subcutaneous pen (Novolog FlexPen U-100 Insulin aspart) losartan 100 mg tablet 100 mg PO QAM 09/14/24 11/29/24 History sodium zirconium cyclosilicate 10 10 g PO WK 09/14/24 11/29/24 History gram oral powder packet (Alysiasusan) clopidogrel 75 mg tablet 75 mg PO QPM 10/13/24 11/29/24 History amlodipine 10 mg tablet 10 mg PO QAM 11/29/24 11/29/24 History Patient History Medical History Hx of carotid artery stenosis left carotid endarterectomy 07/2023 Dyslipidemia Hypertension History of nephrolithiasis Type 2 diabetes mellitus Osteomyelitis of third toe of right foot Diabetic peripheral neuropathy associated with type 2 diabetes mellitus Chronic kidney disease, stage 3b follows with dr. holden (last seen october 2024) History of kidney injury Orchalgia Spermatocele Surgical History Hx of lymph node excision right arm pit, due to swelling- "years ago" History of amputation of toe (09/2024) right third toe Hx of lithotripsy History of total right knee replacement (11/2023) History of carotid endarterectomy (07/2023) 07/2023, Lopez Yousif History of cardiac cath [facility] many years ago, unsure of date, no stents- follows with dr. wood at [facility] () Family History Aunt Diabetes Uncle Diabetes Social History Smoking Status: Former smoker Tobacco Type: Cigarettes Age Quit Using Tobacco: 30; Second Hand Exposure: No; Do You Dip or Chew Tobacco: No; Tobacco Cessation Education Requested by Patient: No Hx Alcohol Use: No Hx Substance Use: No Preferred Language: Malaysian Communication Ability: Effective Visual Impairment: Limited Hearing Ability: Hard of Hearing Senior Escrow Officer Required: No Beliefs That Will Affect Care: None marital status: Current Living Situation: Spouse Other Information That Helps Us Care for You: No Feels Safe at Home: Yes Safety Concerns: Feels Safe At This Time Diet: regular caffeine: Yes Assistive Devices: Cane, Crutches, Special Shoe and Walker Review of Systems Review of Systems: All systems reviewed & are unremarkable except as noted in HPI & below Physical Exam Physical Exam: General: Comfortable, no acute distress Eyes: Sclerae anicteric Lungs: Clear to auscultation bilaterally Cardiac: Regular rate and rhythm, 2 out of 6 stock ejection murmur Abdomen: Soft, nontender, Neuro: Nonfocal Psych: Alert orient x3, normal affect and mood Extremities/Vascular: -- 2+ radial bilaterally -- 2+ popliteal bilaterally --Nonpalpable DP/PT pulses on right. Palpable PT on left --Midfoot normal color, medial aspect of TMA wound dehisced with Steri-Strips in place. Minimal surrounding erythema, no drainage -- No edema Results & Data Vital Signs (Past 12 Hours) Vital Signs Temp Pulse Resp BP Pulse Ox O2 Del Method 12/01/24 07:43 Room Air 12/01/24 07:36 98.1 F 61 17 162/80 H 93 Room Air 11/30/24 22:51 97.9 F 74 18 127/66 98 Room Air PG Care Time/CCT Total # of Minutes Spent Total Time Spent with Patient: Total time spent is greater than 50% in coordination of care (as documented) at patient's floor/unit and/or counseling patient: Coding Level of Care Code 30024 INT INP/OBS CARE 2MIN Diagnoses PAD (peripheral artery disease) I73.9
[2024-12-01] MEDS: SODIUM ZIRCONIUM CYCLOSILICATE 10 GM PACKET PO SCH (11:58)
--- NOTE | 2024-12-01 13:53 | Infectious Disease Progress Nt ---
Date of Service December 01, 2024 Assessment & Plan (1) Foot pain, right: (2) History of transmetatarsal amputation of right foot: (3) Type 2 diabetes mellitus: Plan 68yo M with h/o PAD s/p angioplasty, CKD III, T2DM, peripheral neuropathy, HTN, admission 09/2024 with right third toe OM s/p partial 3rd toe amputation and dcd on 7d abx (cx Serratia), increasing diffuse critical ischemia of digits and ongoing infection of right hallux s/p right TMA on 11/04/24 who presented on 11/29 with weakness and pain in right foot. Recently completed a course of doxycycline ending 11/29. Denied fevers, abdominal pain. In the ED, he was afebrile, vss. Initial labs with WBC 14.96, Cr 1.85. AST/ALT wnl. Lactate neg. PCT 0.07. MRSA screen neg. XR right foot with mild osseous irregularity of the distal remaining aspects of the first and second metatarsals. MRI right foot with no e/o OM, soft tissue swelling and irregularity at the amputation site; confluent fluid signal anterior to metatarsal bones 1-2 measuring up to 3.5 cm; could represent postoperative change with hematoma/seroma, soft tissue infection and abscess are not excluded. He was given cefepime. ID consulted 11/30. Stopped abx given no cellulitis. Podiatry feels collection is seroma. RLE arterial doppler with atherosclerosis. Seen by vascular. Foot unchanged today. No fevers. # Right foot pain # R foot 3.5cm fluid collection # Recent right TMA # h/o T2DM - continue to monitor off antibiotics - if he develops any s/o sepsis or any worsening of his foot (ie signs of skin infection or pus drainage), then resume antibiotics based on recent cultures (ie cefepime or fluoroquinolone) and pursue further assessment of the 3.5cm collection Will discontinue active follow up at this time. Please do not hesitate to reconsult the Infectious Diseases service as needed. Lyndsey Oglesby MD [facility], Division of Infectious Diseases [facility]: [phone] Admission and Anticipated Discharge Date Admission Date: November 29, 2024 Subjective Subsequent visit was provided via telemedicine using two-way real-time interactive telecommunication between the patient and the telemedicine provider. For the duration of the visit, the provider was performing the assessment from a different facility than the patient. This includesuse of bluetooth stethoscope forauscultationperformed by the telepresenter that the telemedicine provider can hear if described in the physical exam. [place] Secretary contact information: Please call [facility] Call Center . (Phone Number For Physician Use Only) After establishing a telemedicine visit, patient was: Patient was verified with two unique identifiers, Patient/authorized rep acknowledged consent and understanding and Gave permission to continue telehealth session Time Spent with Patient: Subsequent => 55 min Patient without complaints. Still has pain in his foot, particularly in the area of the great toe. Physical Exam Physical Exam: General: Awake, alert, no acute distress HEENT: NC/AT, EOMI, mmm Neck: supple Lungs: respirations non-labored Heart: nl peripheral perfusion Abdomen: soft, NT/ND Ext: right foot with healing wound, serosanguinous drainage Neuro: moving all extremities Results & Data Vital Signs (Past 12 Hours) Vital Signs Temp Pulse Resp BP Pulse Ox O2 Del Method 12/01/24 10:24 124/68 12/01/24 07:43 Room Air 12/01/24 07:36 36.7 C 61 17 162/80 H 93 Room Air Laboratory Results Labs reviewed. Diagnostic Findings Imaging reviewed. (3) Type 2 diabetes mellitus Diabetes mellitus assisted insulin use: with assisted use Diabetes mellitus complication status: with neurologic complications Diabetes mellitus complication detail: with mononeuropathy Qualified Code(s): E11.41 - Type 2 diabetes mellitus with diabetic mononeuropathy; Z79.4 - [facility] (current) use of insulin
[2024-12-01] MEDS: oxyCODONE HCL IR 5 MG TAB (IMMEDIATE RELEASE) PO PRN (16:09)
[2024-12-01] MEDS: traMADol HCL 50 MG TABLET PO PRN (17:16)
--- NOTE | 2024-12-01 18:32 | Hospitalist Progress Note ---
Date of Service December 01, 2024 Assessment & Plan (1) History of transmetatarsal amputation of right foot: (2) Thrombocytosis: (3) Hyperkalemia: (4) Chronic kidney disease, stage 3b: (5) Diabetic peripheral neuropathy associated with type 2 diabetes mellitus: Plan Brennan is a 68-year-old male with past medical history of hypertension, carotid artery stenosis, PAD status post angioplasty, hyperkalemia, CKD stage IIIb, vitamin D deficiency, hyperlipidemia, diabetes mellitus insulin requiring, peripheral neuropathy, obesity and right foot osteomyelitis with recent transmetatarsal amputation on 11/04/[address] Morales. Presents with weakness and concerns for worsening infection. Initial evaluation shows mild leukocytosis with negative lactate and procal and foot xray with mild osseous irregularity of the distal remaining aspects of the first and second metatarsals, concerning for osteomyelitis. remains admitted to control pain #Hx of transmetatarsal amputation / Wound infection ruled out - Follows with Dr. Morales, recent transmetatarsal amputation 11/04/24. wound culture enterobacter and Klebsiella ID does not feel active infection ID consulted - MRI does not show osteo, antibiotics on hold Podiatry Consulted - Dr. Morales. recommend possible vascular eval Pt required parenteral pain control #DMT2 with neuropathy Home regimen: lantus 20units BID + 16units short acting with meals , metformin BID continue lantus 16 units BID and SSI with CF 15 and CR 5 A1c 7.6 07/2024, recheck 7.3 Continue gabapentin #Thrombocytosis suspect reactive improving #Hyperkalemia Chronic issue - takes lokelma weekly. K 5.0 on admission Will give Lokelma dose in AM to prevent K elevation preventing surgical intervention this stay #CKD3 Cr 1.85 on admission, appears baseline Avoid nephrotoxins #HTN/CAD Continue amlodipine, aspirin, atorvastatin, carvedilol, clopidogrel resume losartan in case needs OR intervention pain control is main issue, added ultram and increased gabapentin 12/01 Admission and Anticipated Discharge Date Admission Date: November 29, 2024 Subjective Patient without complaints. Still has pain in his foot, particularly phantom pain in the area of the great toe. Physical Exam Physical Exam: cardiac is regular lungs unlabored foot is wrapped, pulses not palp, but foot is warm Results & Data Results & Data Vital Signs (Past 12 Hours) Vital Signs Temp Pulse Resp BP BP Pulse Ox O2 Del Method 12/01/24 14:52 97.9 F 65 16 164/65 H 95 Room Air 12/01/24 10:24 124/68 12/01/24 07:43 Room Air 12/01/24 07:36 98.1 F 61 17 162/80 H 93 Room Air PG Care Time/CCT Total # of Minutes Spent Total Time Spent with Patient: Total time spent is greater than 50% in coordination of care (as documented) at patient's floor/unit and/or counseling patient: Coding Level of Care Code 57920 SUB INP/OBS CARE 2/35MIN Diagnoses History of transmetatarsal amputation of right foot Z89.431 Thrombocytosis D75.839 Hyperkalemia E87.5 Chronic kidney disease, stage 3b N18.32 Diabetic peripheral neuropathy associated with type 2 diabetes mellitus E11.42
[2024-12-01] MEDS: GABAPENTIN 600 MG TAB PO SCH (19:48)
--- NOTE | 2024-12-01 20:50 | Podiatry Progress Note ---
Date of Service December 01, 2024 Assessment & Plan (1) Right foot infection: (2) History of foot surgery: (3) Foot pain, right: (4) History of transmetatarsal amputation of right foot: (5) Abnormal ankle brachial index (DIANNE): Plan Patient was examined and evaluated. - Foot cleaned, redressed with adaptic/betadine wet to dry dressing. - Minor subcutaneous bleeding expressed without abscess or deep tissue involvement - No evidence for infection or worsening dehiscence. Area of potential necrosis medially is improved, likely more hematoma than true necrosis. - Discussed vascular plan with patient and Dr. Sanz. Initially wanted to be d/c and see Dr. Medina outpatient, but now more amenable to inpatient vascular intervention with Dr. Sanz. Dr. Sanz remains in agreement with this, pending intervention later this week. - Continue local wound care; will follow. Admission and Anticipated Discharge Date Admission Date: November 29, 2024 Subjective Patient seen at bedside at lunchtime. Doing well. Pain still present and is his main concern. Interested in tramadol in addition to his gabapentin, if possible. Denies new concerns. Review of Systems Constitutional: + fever, + fatigue and + malaise; no chi lls Eyes: no problem reported Ear, Nose, Mouth, Throat: no problem reported Respiratory: no problem reported Cardiovascular: + edema; no problem reported Gastrointestinal: no nausea, no vomiting and no problem reported Musculoskeletal: no problem reported Integumentary: + skin ulcer, + wounds and + erythema Neurologic: + loss of sensation, + numbness and + pa resthesia; no generalized weakness Psychiatric: no problem reported Physical Exam Physical Exam: right lower extremity focused exam: DP/PT pulses nonpalpable. Advanced trophic changes are noted to the feet with diffuse thinning of the skin, absent hair growth, and pitting edema to the lower extremity. His transmetatarsal imitation site still has Steri-Strips applied from his recent suture removal. There is evidence of superficial wound dehiscence to the central aspect and medial aspect of the incision, though this does appear superficial with no visible or palpable underlying metatarsals noted. No purulent drainage is appreciated. No active drainage or bleeding noted. Constitutional: WD/WN, vitals as above + ill appearing Eyes: PERRL, conjunctivae normal, anicteric sclerae ENMT: external ear and nose normal, oropharynx normal Neck: trachea midline, no thyromegaly normal visual inspection Respiratory: normal respiratory effort; no respiratory distress Cardiovascular: Rate/Rhythm: regular rate and regular rhythm Vessels: + posterior tibial pulses abnormal and + dorsalis pedis pulses abnormal (Monophasic on exam) Chest (Breasts): Chest: normal inspection of chest Gastrointestinal (Abdomen): Inspection/Auscultation: abdomen normal to inspection Percussion/Palpation: + abdomen tender and abdomen soft; no hepatosplenomegaly Musculoskeletal: no cyanosis or clubbing, extremities motor strength 5/5 Head/Neck/Chest: normocephalic and head atraumatic Extremities: extremities normal to inspection, + limited ROM of lower extremity and + foot abnormality (Right TMA noted) Gait: + antalgic gait and + limp Skin: + ulcer (Dehiscence to the right TMA), + wound, + dry skin and + erythema Neurologic: awake; + abnormal touch/pain/proprioception, + abnormal sensation to monofilament and no focal motor deficits Psychiatric: A+Ox3, euthymic affect Results & Data Results & Data Vital Signs (Past 12 Hours) Vital Signs Temp Pulse Resp BP BP Pulse Ox O2 Del Method 12/01/24 14:52 36.6 C 65 16 164/65 H 95 Room Air 12/01/24 10:24 124/68
[2024-12-02] MEDS: POLYETHYLENE (MIRALAX) 17 GM PACK PO PRN (08:21)
[2024-12-02] MEDS: PROCHLORPERAZINE 5 MG in SYRINGE 4 ML IV ONE (11:49)
[2024-12-02] MEDS: POLYETHYLENE (MIRALAX) 17 GM PACK PO SCH (12:01)
--- NOTE | 2024-12-02 17:50 | Hospitalist Progress Note ---
Date of Service December 02, 2024 Assessment & Plan (1) History of transmetatarsal amputation of right foot: (2) Thrombocytosis: (3) Hyperkalemia: (4) Chronic kidney disease, stage 3b: (5) Diabetic peripheral neuropathy associated with type 2 diabetes mellitus: Kandi Amin is a 68-year-old male with past medical history of hypertension, carotid artery stenosis, PAD status post angioplasty, hyperkalemia, CKD stage IIIb, vitamin D deficiency, hyperlipidemia, diabetes mellitus insulin requiring, peripheral neuropathy, obesity and right foot osteomyelitis with recent transmetatarsal amputation on 11/04/[address] Morales. Presents with weakness and concerns for worsening infection. Initial evaluation shows mild leukocytosis with negative lactate and procal and foot xray with mild osseous irregularity of the distal remaining aspects of the first and second metatarsals, concerning for osteomyelitis. remains admitted to control pain #Hx of transmetatarsal amputation / Wound infection ruled out - Follows with Dr. Morales, recent transmetatarsal amputation 11/04/24. wound culture enterobacter and Klebsiella ID does not feel active infection ID consulted - MRI does not show osteo, antibiotics on hold Podiatry Consulted - Dr. Morales. recommend possible vascular eval Pt required parenteral pain control Plan for vascular intervention on 12/03 Ordered nausea medicine. #DMT2 with neuropathy Home regimen: lantus 20units BID + 16units short acting with meals , metformin BID continue lantus 16 units BID and SSI with CF 15 and CR 5 A1c 7.6 07/2024, recheck 7.3 Continue gabapentin #Thrombocytosis suspect reactive improving #Hyperkalemia Chronic issue - takes lokelma weekly. K 5.0 on admission Will give Lokelma dose in AM to prevent K elevation preventing surgical i ntervention this stay #CKD3 Cr 1.85 on admission, appears baseline Avoid nephrotoxins #HTN/CAD Continue amlodipine, aspirin, atorvastatin, carvedilol, clopidogrel resume losartan in case needs OR intervention pain control is main issue, added ultram and increased gabapentin 12/01 Admission and Anticipated Discharge Date Admission Date: November 29, 2024 Subjective Patient reports he continues to have pain in his right foot. Review of Systems Review of Systems: All systems reviewed & are unremarkable except as noted in HPI & below Physical Exam Physical Exam: cardiac is regular lungs unlabored foot is wrapped, pulses not palp, but foot is warm Results & Data Results & Data Vital Signs (Past 12 Hours) Vital Signs Temp Pulse Resp BP Pulse Ox O2 Del Method 12/02/24 14:44 36.6 C 65 18 145/69 H 96 Room Air 12/02/24 07:27 36.5 C 62 16 153/75 H 94 Room Air 12/02/24 07:16 Room Air PG Care Time/CCT Total # of Minutes Spent Total Time Spent with Patient: Total time spent is greater than 50% in coordination of care (as documented) at patient's floor/unit and/or counseling patient: Coding Level of Care Code 35597 SUB INP/OBS CARE 3/50MIN Diagnoses History of transmetatarsal amputation of right foot Z89.431 Thrombocytosis D75.839 Hyperkalemia E87.5 Chronic kidney disease, stage 3b N18.32 Diabetic peripheral neuropathy associated with type 2 diabetes mellitus E11.42 Time Spent (min) 50 Comment chart review
[2024-12-03] MEDS: INSULIN ASPART PER UNIT CHARGE SC STA (06:39)
[2024-12-03] MEDS ORDERED: Nursing to Pharmacy Communication SCH (06:45)
[2024-12-03 08:00] LABS: Hematocrit (blood only) 30.9 % (42.0-52.0); Hemoglobin 10.1 g/dl (14.0-18.0); Mean Corpuscular Hemoglobin 29.8 pg (25.0-34.0); Mean Corpuscular Hgb Conc 32.7 g/dL (32.0-36.0); Mean Corpuscular Volume 91.2 fL (80.0-100.0); Mean Platelet Volume 10.2 fL (9.4-12.4); Platelet Count 309 K/uL (130-400); RDW Standard Deviation 46.5 fL (36.4-46.3); Red Blood Count 3.39 M/uL (4.70-6.10); White Blood Count 9.64 K/ul (4.8-10.8)
[2024-12-03 08:26] LABS: BUN Creatinine Ratio 19.1 (10-20); Calcium 8.6 mg/dl (8.6-10.3); Creatinine Clr Calc Pharmacy 42.3 ml/min; Potassium 5.3 mmol/L (3.5-5.1)
--- NOTE | 2024-12-03 12:29 | Pre Anesthesia Assessment ---
Date of Service December 03, 2024 Pre Sedation Assessment Vital Signs Temp Pulse Resp BP BP Pulse Ox O2 Del Method 12/03/24 11:45 65 14 131/49 L 93 Room Air 12/03/24 07:36 98.1 F 57 L 18 147/71 H 94 Room Air 12/02/24 20:55 97.7 F 65 132/75 93 Room Air 12/02/24 20:20 Room Air 12/02/24 14:44 97.9 F 65 18 145/69 H 96 Room Air Cardiovascular + regular rate Respiratory + respiratory effort normal Pre-Sedation Airway Assessment Smoking Status: Former smoker Hx Sleep Apnea: No Short, Thick Neck: No Thyromental Distance: > or= 3.5 Finger Breadths Oral Cavity: + Dentures Mallampati Class: IV ASA: ASA4 NPO Status Date of Last Intake of Fluids: 12/02/24 Time of Last Intake of Fluids: 18:00 Date of Last Intake of Solid Food: 12/02/24 Time of Last Intake of Solid Foods: 18:00 Procedure Planning Contraindications for Sedation: none Current Medications Reviewed: Yes Notes The planned sedation has been discussed with the patient. Informed Consent was obtained. I have identified the patient, determined the appropriateness of sedation and have assessed the patient immediately prior to the procedure. All medicine(s) and interventions are by my order.
[2024-12-03] MEDS: HEPARIN (PORCINE) 1000 UNIT/ML 10 ML (CATH LAB USE ONLY) ONE (15:01)
[2024-12-03] MEDS: fentaNYL citrate PF 100 MCG/2 ML VIAL ONE ×2 (15:01→15:03)
[2024-12-03] MEDS: LIDOCAINE 1% LOCAL 20 ML VIAL ONE (15:01)
[2024-12-03] MEDS: IODIXANOL (VISIPAQUE) 320 MG/ML 100ML IV ONE (15:02)
[2024-12-03] MEDS: MIDAZOLAM HCL 1 MG/ML 2ML VIAL ONE ×2 (15:02→15:03)
[2024-12-03] MEDS: OPTIRAY 350 ONE (15:02)
[2024-12-03] MEDS: NITROGLYCERIN/D5W 100MCG/ML 20ML SYR ONE (15:03)
--- NOTE | 2024-12-03 15:29 | Post Anesthesia Assessment ---
Date of Service December 03, 2024 Post Sedation Assessment Vital Signs Temp Pulse Resp BP BP Pulse Ox O2 Del Method 12/03/24 11:45 65 14 131/49 L 93 Room Air 12/03/24 07:36 98.1 F 57 L 18 147/71 H 94 Room Air 12/02/24 20:55 97.7 F 65 132/75 93 Room Air 12/02/24 20:20 Room Air Recovery Score Activity: Moves 4 extremities Respiration: Deep Breath/Cough Circulation: +/-20% PreAnes Value Consciousness: Fully Awake Oxygen Saturation: O2 needed for >90% Discharge Sedation Level of Care: Fast Track Phase II Post Sedation Plan On clinical assessment, the patient appears to have tolerated the sedation without complications. Patient is recovering as anticipated. Patient will continue to be monitored by nursing and may be discharged when sedation discharge criteria are met per below protocol. Upon Completions of procedure up to 15 minutes continue every 5 minute vital signs and the P.A.R. score; then discharge to a Phase I or Fast Track to Phase II per the following guidelines: * Discharge Patient to appropriate Phase II area if PAR is 8 or greater or return to pre- procedure baseline. The post - procedure orders will be as directed. * If PAR score is less than 8 or not return to pre-procedure baseline then patient will follow Phase I monitoring till PAR is reached for Phase II. The Phase I may be done in procedure room or may call to secure a Phase I area. * If naloxone or flumazenil are used for reversal, hold in Phase I for continued monitoring from when last reversal dose was given for a minimum of 60 minutes or longer pending the nurse and/or physician discretion of patient condition before discharge to Phase II. Please call the Sedation Physician to re-evaluate and complete post-note for discharge to Phase II area. Do NOT discharge from procedure sedation or Phase 1 until post- sedation evaluation note is complete by procedure /sedation MD Sedation Discharge Instructions to be given to the patient at discharge to home.
--- NOTE | 2024-12-03 15:47 | Post Operative Brief Note ---
PG Immediate Post Op with CF Date of Surgery December 03, 2024 Pre & Post Diagnosis Peripheral arterial disease I identified the patient and participated in the time-out.: Yes Procedure Operation Date: 12/03/24 11:00 Actual Procedures p Angio Extremity Unilateral - Taras Sanz MD s Lithotripsy Stent Tib/Per - Taras Sanz MD Surgeon Taras Sanz MD Scanner Supervisor Blanca Estimated Blood Loss 25 Findings See Below Right lower extremity: Widely patent ENGINE INSPECTOR through popliteal arteries 100% distal REKHA occlusion. Small PDA/pedal vessels fill via collaterals 100% distal IT ADMINISTRATIVE ASSISTANT occlusion. Collaterals from IT ADMINISTRATIVE ASSISTANT contribute to feeling of pedal vessels. IT ADMINISTRATIVE ASSISTANT below the ankle does not reconstitute. Peroneal widely patent and gives off collaterals to REKHA/IT ADMINISTRATIVE ASSISTANT. Successful angioplasty of distal REKHA with 2.0 balloon and 2.5 mm intravascular lithotripsy (shockwave, 80 pulses). Right antegrade ENGINE INSPECTOR access with closure device placement Anesthesia Type RN Sedation Complications none Disposition Accompanied Patient To Recovery: Yes Disposition: Recovery Room
[2024-12-03] MEDS: INSULIN ASPART PER UNIT CHARGE SC SCH ×2 (16:05→17:36)
[2024-12-03] MEDS: SODIUM CHLORIDE 0.9% 1,000 ML IV SCH (16:06)
--- NOTE | 2024-12-03 23:00 | Hospitalist Progress Note ---
Date of Service December 03, 2024 Assessment & Plan (1) History of transmetatarsal amputation of right foot: (2) Thrombocytosis: (3) Hyperkalemia: (4) Chronic kidney disease, stage 3b: (5) Diabetic peripheral neuropathy associated with type 2 diabetes mellitus: Plan Brennan is a 68-year-old male with past medical history of hypertension, carotid artery stenosis, PAD status post angioplasty, hyperkalemia, CKD stage IIIb, vitamin D deficiency, hyperlipidemia, diabetes mellitus insulin requiring, peripheral neuropathy, obesity and right foot osteomyelitis with recent transmetatarsal amputation on 11/04/[address] Morales. Presents with weakness and concerns for worsening infection. Initial evaluation shows mild leukocytosis with negative lactate and procal and foot xray with mild osseous irregularity of the distal remaining aspects of the first and second metatarsals, concerning for osteomyelitis. remains admitted to control pain #Hx of transmetatarsal amputation / Wound infection ruled out - Follows with Dr. Morales, recent transmetatarsal amputation 11/04/24. wound culture enterobacter and Klebsiella ID does not feel active infection ID consulted - MRI does not show osteo, antibiotics on hold Podiatry Consulted - Dr. Morales. recommend possible vascular eval Pt required parenteral pain control Vascular intervention completed on 12/03: angioplasty to an occluded distal anterior tibial artery #DMT2 with neuropathy Home regimen: lantus 20units BID + 16units short acting with meals , metformin BID continue lantus 16 units BID and SSI with CF 15 and CR 5 A1c 7.6 07/2024, recheck 7.3 Continue gabapentin #Thrombocytosis suspect reactive improving #Hyperkalemia Chronic issue - takes lokelma weekly. K 5.0 on admission Will give Lokelma dose in AM to prevent K elevation preventing surgical intervention this stay #CKD3 Cr 1.85 on admission, appears baseline Avoid nephrotoxins #HTN/CAD Continue amlodipine, aspirin, atorvastatin, carvedilol, clopidogrel resume losartan in case needs OR intervention Admission and Anticipated Discharge Date Admission Date: November 29, 2024 Subjective 68 male reports no new symptoms. Physical Exam Physical Exam: cardiac is regular lungs unlabored foot is wrapped, pulses not palp, but foot is warm Results & Data Results & Data Vital Signs (Past 12 Hours) Vital Signs Temp Pulse Pulse Resp BP BP Pulse Ox 12/03/24 22:56 36.6 C 63 18 127/67 91 12/03/24 20:11 36.4 C L 70 18 139/66 94 12/03/24 17:27 36.4 C L 69 18 136/59 L 95 12/03/24 17:08 61 12/03/24 16:52 36.4 C L 70 16 140/69 92 12/03/24 16:51 36.4 C L 66 19 137/64 97 12/03/24 16:34 36.4 C L 60 18 148/74 H 92 12/03/24 16:21 36.4 C L 62 17 138/74 95 12/03/24 15:56 36.4 C L 78 17 131/88 94 12/03/24 15:45 66 14 128/66 93 12/03/24 15:30 63 14 120/69 93 12/03/24 11:45 65 14 131/49 L 93 O2 Del Method 12/03/24 22:56 Room Air 12/03/24 20:11 Room Air 12/03/24 17:27 Room Air 12/03/24 17:08 12/03/24 16:52 Room Air 12/03/24 16:51 Room Air 12/03/24 16:34 Room Air 12/03/24 16:21 Room Air 12/03/24 15:56 Room Air 12/03/24 15:45 Room Air 12/03/24 15:30 Room Air 12/03/24 11:45 Room Air PG Care Time/CCT Total # of Minutes Spent Total Time Spent with Patient: Total time spent is greater than 50% in coordination of care (as documented) at patient's floor/unit and/or counseling patient: Coding Level of Care Code 67001 SUB INP/OBS CARE 3/50MIN Diagnoses History of transmetatarsal amputation of right foot Z89.431 Thrombocytosis D75.839 Hyperkalemia E87.5 Chronic kidney disease, stage 3b N18.32 Diabetic peripheral neuropathy associated with type 2 diabetes mellitus E11.42
--- NOTE | 2024-12-04 00:04 | Vascular Medicine ProgressNote ---
Date of Service December 03, 2024 Assessment & Plan (1) PAD (peripheral artery disease): Plan: 2. Slow healing right TMA surgical wound 3. Type 2 diabetes with peripheral neuropathy 4. Stage III CKD 5. Anemia Underwent repeat angiogram today right lower extremity. 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 Underwent successful angioplasty to distal REKHA with resulting direct inline flow into the foot. Post procedure comfortable. No apparent access site complications. Continue DAPT with aspirin, clopidogrel Add PAD dose Xarelto 2.5 mg twice daily in effort to improve long-term patency Continue current statin, ARB, CCB. Continue to follow-up with podiatry. From a vascular standpoint okay with discharge tomorrow if stable overnight. Follow-up with me in 1 to 2 weeks with repeat arterial duplex. Admission and Anticipated Discharge Date Admission Date: November 29, 2024 Subjective Feeling well this evening after endovascular intervention. Reports some soreness at right CELL TENDER access site. Right foot pain reasonably controlled. Review of Systems Review of Systems: All systems reviewed & are unremarkable except as noted in HPI & below Physical Exam Physical Exam: General: Comfortable, no acute distress Eyes: Sclerae anicteric Lungs: Clear to auscultation bilaterally Cardiac: Regular rate and rhythm, 2 out of 6 systolic ejection murmur Abdomen: Soft, nontender, Neuro: Nonfocal Psych: Alert orient x3, normal affect and mood Extremities/Vascular: -- 2+ radial bilaterally -- 2+ right CELL TENDER, tender. No hematoma. --Nonpalpable DP/PT pulses on right. Palpable PT on left -- Dressing in place. No surrounding erythema. Foot warm -- No edema Results & Data Vital Signs (Past 12 Hours) Vital Signs Temp Pulse Pulse Resp BP BP Pulse Ox 12/03/24 22:56 97.9 F 63 18 127/67 91 12/03/24 20:11 97.5 F L 70 18 139/66 94 12/03/24 17:27 97.5 F L 69 18 136/59 L 95 12/03/24 17:08 61 12/03/24 16:52 97.5 F L 70 16 140/69 92 12/03/24 16:51 97.5 F L 66 19 137/64 97 12/03/24 16:34 97.5 F L 60 18 148/74 H 92 12/03/24 16:21 97.5 F L 62 17 138/74 95 12/03/24 15:56 97.5 F L 78 17 131/88 94 12/03/24 15:45 66 14 128/66 93 12/03/24 15:30 63 14 120/69 93 O2 Del Method 12/03/24 22:56 Room Air 12/03/24 20:11 Room Air 12/03/24 17:27 Room Air 12/03/24 17:08 12/03/24 16:52 Room Air 12/03/24 16:51 Room Air 12/03/24 16:34 Room Air 12/03/24 16:21 Room Air 12/03/24 15:56 Room Air 12/03/24 15:45 Room Air 12/03/24 15:30 Room Air PG Care Time/CCT Total # of Minutes Spent Total Time Spent with Patient: Total time spent is greater than 50% in coordination of care (as documented) at patient's floor/unit and/or counseling patient: Coding Level of Care Code 21910 SUB INP/OBS CARE MIN Diagnoses PAD (peripheral artery disease) I73.9
[2024-12-04 08:13] LABS: Hematocrit (blood only) 31.2 % (42.0-52.0); Hemoglobin 10.1 g/dl (14.0-18.0); Mean Corpuscular Hemoglobin 29.9 pg (25.0-34.0); Mean Corpuscular Hgb Conc 32.4 g/dL (32.0-36.0); Mean Corpuscular Volume 92.3 fL (80.0-100.0); Mean Platelet Volume 10.8 fL (9.4-12.4); Platelet Count 316 K/uL (130-400); RDW Coefficient of Variation 14.2 % (11.5-14.5); RDW Standard Deviation 47.5 fL (36.4-46.3); Red Blood Count 3.38 M/uL (4.70-6.10); White Blood Count 9.52 K/ul (4.8-10.8)
[2024-12-04] MEDS: RIVAROXABAN 2.5 MG TAB PO SCH (08:19)
[2024-12-04 08:31] LABS: BUN Creatinine Ratio 17.2 (10-20); C Reactive Protein 1.16 mg/dl (0-0.5); Calcium 8.4 mg/dl (8.6-10.3); Creatinine Clr Calc Pharmacy 43.3 ml/min; Potassium 4.9 mmol/L (3.5-5.1)
--- NOTE | 2024-12-04 10:49 | Vascular Medicine ProgressNote ---
Date of Service December 04, 2024 Assessment & Plan (1) PAD (peripheral artery disease): Plan: 2. Slow healing right TMA surgical wound 3. Type 2 diabetes with peripheral neuropathy 4. Stage III CKD 5. Anemia Postprocedure day 1 following distal REKHA angioplasty. Right foot warm. Pulse dopplerable. Right foot pain well-controlled. 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 Continue DAPT with aspirin, clopidogrel Add PAD dose Xarelto 2.5 mg twice daily in effort to improve long-term patency Continue current statin, ARB, CCB. Continue to follow-up with podiatry. From a vascular standpoint okay with discharge today if urinary issues resolved. Will arrange follow-up me in 1 to 2 weeks with repeat arterial duplex. Admission and Anticipated Discharge Date Admission Date: November 29, 2024 Subjective Denies significant pain this morning. Having difficulty urinating and had to undergo straight cath this morning. Also feels constipated. No other new concerns. 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 No hematoma. --Nonpalpable DP/PT pulses on right. Palpable PT on left -- Dressing in place. No surrounding erythema. Foot warm -- No edema Results & Data Vital Signs (Past 12 Hours) Vital Signs Temp Pulse Pulse Resp BP Pulse Ox O2 Del Method 12/04/24 07:26 97.7 F 69 18 168/82 H 99 Room Air 12/04/24 03:07 97.7 F 60 18 148/71 H 91 Room Air 12/04/24 00:29 64 12/03/24 22:56 97.9 F 63 18 127/67 91 Room Air PG Care Time/CCT Total # of Minutes Spent Total Time Spent with Patient: Total time spent is greater than 50% in coordination of care (as documented) at patient's floor/unit and/or counseling patient: Coding Level of Care Code 93855 SUB INP/OBS CARE 2/35MIN Diagnoses PAD (peripheral artery disease) I73.9
[2024-12-04] MEDS: SOD PHOSPHATE/SOD BIPHOSPHATE ENEMA 132 ML BTL PR STA (11:15)
[2024-12-04] MEDS: POLYETHYLENE (MIRALAX) 17 GM PACK PO SCH (12:40)
[2024-12-04 15:28] VITALS: PULSE 78; RESP 17; TEMP 97.9; O2SAT 92
--- NOTE | 2024-12-04 15:35 | Discharge Summary ---
Discharge Summary Date of Service December 04, 2024 Principal Dx & Hospital Course #1 = Principal Diagnosis (1) History of transmetatarsal amputation of right foot: (2) Thrombocytosis: (3) Hyperkalemia: (4) Chronic kidney disease, stage 3b: (5) Diabetic peripheral neuropathy associated with type 2 diabetes mellitus: Plan Brennan is a 68-year-old male with past medical history of hypertension, carotid artery stenosis, PAD status post angioplasty, hyperkalemia, CKD stage IIIb, vitamin D deficiency, hyperlipidemia, diabetes mellitus insulin requiring, peripheral neuropathy, obesity and right foot osteomyelitis with recent transmetatarsal amputation on 11/04/[address] Morales. Presents with weakness and concerns for worsening infection. Initial evaluation shows mild leukocytosis with negative lactate and procal and foot xray with mild osseous irregularity of the distal remaining aspects of the first and second metatarsals, concerning for osteomyelitis. remains admitted to control pain #Hx of transmetatarsal amputation / Wound infection ruled out - Follows with Dr. Morales, recent transmetatarsal amputation 11/04/24. wound culture enterobacter and Klebsiella ID does not feel active infection ID consulted - MRI does not show osteo, antibiotics stopped Podiatry Consulted - Dr. Morales. recommend possible vascular eval Pt required parenteral pain control Vascular intervention completed on 12/03: angioplasty to an occluded distal anterior tibial artery discharge instructions noted below continue DAPT and low dose xarelto. #DMT2 with neuropathy Home regimen: lantus 20units BID + 16units short acting with meals , metformin BID continue lantus 16 units BID and SSI with CF 15 and CR 5 A1c 7.6 07/2024, recheck 7.3 Continue gabapentin #Thrombocytosis suspect reactive improving #Hyperkalemia chronic issue #CKD3 Cr 1.85 on admission, appears baseline Avoid nephrotoxins #HTN/CAD Continue amlodipine, aspirin, atorvastatin, carvedilol, clopidogrel Admission HPI Per Admitting Provider Brennan is a 68-year-old male with past medical history of hypertension, carotid artery stenosis, PAD status post angioplasty, hyperkalemia, CKD stage IIIb, vitamin D deficiency, hyperlipidemia, diabetes mellitus insulin requiring, peripheral neuropathy, obesity and right foot osteomyelitis with recent transmetatarsal amputation on 11/04/[address] Morales. Presents today with weakness and feeling like his is going to pass out, along with pain in his right foot. He recently completed a course of doxycycline outpatient - last dose was today, 11/29. He was seen at his vascular doctor - Dr. Adam Jim. States that between today and his surgery he has had one day where he felt good. Denies fevers at home, but does feel weak and has many complaints of pain. He had initially been trialing Tylenol without relief. Was given an prescription for tramadol that initially took the edge off but very minimally. Then used some old oxycodone and was able to has a little reprieve. He states pain gets alittle better with elevation, but that is only temporarily. Denies abdominal pain. Has maintained his appetite. no urinary issues. Denies ETOH or smoking. ED course: Cefepime 2g IV Zofran 4mg IV Dilaudid 0.25mg IV Discharge Exam cardiac is regular lungs unlabored foot is wrapped, pulses not palp, but foot is warm Discharge Plan Discharge Items Patient Disposition: Home - Self-Care Reason For Visit: POSSIBLE OSTEOMYELITIS Discharge Diagnosis: peripheral artery disease Condition on Discharge: Good Activity: Resume your previous activity Non-emergency contact: Primary Care Provider Call non-emergency contact if: you have any medication questions Follow-up/Referrals: Taras Sanz MD [Physician] - (Cardiology will call Pt to schedule follow up) Elisabet Stevenson PA-C [Primary Care Provider] - Afshin Morales DPM [Physician] - 12/10/24 1:15 pm (Hospital follow up scheduled December 10 at 1:15 ) Diet: Carb Consistent or DM2 Addtl Attending Provider Instructions: Will recommend close followup with podiatry (Dr. Morales) and Dr. Sanz in 1-2 weeks Followup with PCP in 1-2 weeks. We will contiue aspirin and plavix. We will also add xarelto 2.5 mg by mouth twice daily. Pending Studies at Discharge: No Stand-Alone Forms: My [facility] [place], Smoking Cessation Medications and AL Order Prescriptions: New rivaroxaban [Xarelto] 2.5 mg tablet 2.5 mg PO BID Qty: 60 0RF acetaminophen [Tylenol] 325 mg tablet 650 mg PO QID Qty: 120 0RF Continued gabapentin 300 mg capsule 300 mg PO QID Qty: 120 5RF glucagon 1 mg/0.2 mL auto-injector 1 mg subcut UD PRN (Reason: prn) (DME) FreeStyle Darnell 3 Sensor Device See Rx Instructions .Route Rx Instructions: change every 14 days atorvastatin 20 mg tablet 20 mg PO QPM (DME) pen needle, diabetic [BD Ultra-Fine Short Pen Needle] 31 gauge x 5/16" needle See Rx Instructions .Route Rx Instructions: Inject insulin daily (DME) OneTouch Ultra Test Strip See Rx Instructions .Route Rx Instructions: Test blood sugar two times daily carvedilol 25 mg tablet 25 mg PO BID Rx Instructions: must administer with a meal/food metformin 1,000 mg tablet 1,000 mg PO BID insulin glargine [Lantus Solostar U-100 Insulin] 100 unit/mL (3 mL) insulin pen 20 unit subcut AMPM Patient Comments: Patient takes 30 units in am; 30 units in evening. clopidogrel 75 mg tablet 75 mg PO QPM losartan 100 mg tablet 100 mg PO QAM Lokelma 10 gram powder in packet 10 g PO WK aspirin 81 mg Tablet,Chewable 81 mg PO QAM Rx Instructions: takes a couple times a week when he thinks about it insulin aspart U-100 [Novolog FlexPen U-100 Insulin] 100 unit/mL (3 mL) insulin pen 0 unit subcut TID MDD 50 UNITS Rx Instructions: SLIDING SCALE...TAKE 8 UNITS WITH BREAKFAST, 14 UNITS WITH LUNCH, & 16 UNITS WITH SUPPER. amlodipine 10 mg tablet 10 mg PO QAM Discharge Orders: Discharge Order (Routine); Ordered 12/04/24 Ordered By: Kavon Shipley Admission Data Admit Date/Time: 11/29/24 18:18 Attending Provider: Kavon Shipley Admit Provider: Raul Aguilar Primary Care Provider: Elisabet Stevenson Other Providers: Lyndsey Oglesby; Afshin Morales; Taras Sanz Other Interventions: Discharge Summary Assessment (RN) Last Done: 12/04/24 16:27 Hospital Stay Data Consultations 11/29/24 17:13 ED Decision to Admit Stat 11/29/24 20:05 Consult Infectious Diseases Routine Consult Podiatry Routine 11/30/24 13:08 Consult Vascular Surgery Routine Procedures Performed Operation Date: 12/03/24 11:00 Actual Procedures p Angio Extremity Unilateral - Taras Sanz MD s Lithotripsy Stent Tib/Per - Taras Sanz MD Diagnostic Imagining Performed 11/29/24 17:39 MRI Foot [MR foot RT w/o con] Urgent 11/30/24 16:12 US arterial duplex LE RT Routine 12/03/24 06:40 CL Cath Imgs for PACS use only Routine Pending Results Patient Have Any Pending Studies at Discharge: No Discharge Instructions Given to Patient (Per Discharging Provider) Will recommend close followup with podiatry (Dr. Morales) and Dr. Sanz in 1-2 weeks Followup with PCP in 1-2 weeks. We will contiue aspirin and plavix. We will also add xarelto 2.5 mg by mouth twice daily. Total Time Total Time Spent Total Time Spent (In Minutes): 32 Coding Level of Care Code 24721 INP/OBS DISCH >30 MIN Diagnoses History of transmetatarsal amputation of right foot Z89.431 Thrombocytosis D75.839 Hyperkalemia E87.5 Chronic kidney disease, stage 3b N18.32 Diabetic peripheral neuropathy associated with type 2 diabetes mellitus E11.42
[2024-12-04 16:29] VITALS: BP 139/66
--- NOTE | 2024-12-06 22:34 | Endovascular Procedure Note ---
[facility] Endovascular Procedure Rpt Pre & Post Diagnosis Peripheral artery disease I identified the patient and participated in the time-out.: Yes Procedure Operation Date: 12/03/24 11:00 Actual Procedures p Angio Extremity Unilateral - Taras Sanz MD s Lithotripsy Stent Tib/Per - Taras Sanz MD Surgeon Taras Sanz MD Head Greenskeeper Blanca Estimated Blood Loss 25 Findings See Below Abdominal aorta--no significant aneurysmal or stenotic disease Right lower extremity-- -MANAGER FIBER, profunda widely patent -SFAwidely patent, 20% mild mid to distal disease -Popliteal patchwidely patent, luminal regularities -ATAwidely patent just above the ankle and 100% occlusion. Small DPA fills via collaterals -PTAoccluded in the midsegment. Gives of collaterals that extend into the foot. SOLAR DESIGNER itself does not appear to reconstitute. -Peronealwidely patent to the ankle. Provides collaterals to distal REKHA, SOLAR DESIGNER territory -DPAsmall vessel extends into mid foot. Collaterals but no clear reconstitution of medial/plantar arteries. Anesthesia Type RN Sedation Radiation Exposure (mGv) Radiation (mGy): 84 Contrast Contrast: 75 Complications none Disposition Accompanied Patient To Recovery: Yes Description of Procedure Right antegrade MANAGER FIBER access obtained under ultrasound guidance with micropuncture, short 5Fr sheath placed Initial angiography via sheath and right MANAGER FIBER 5 Fr JR4 guide placed down to popliteal, ostium of REKHA Using 0.14 command wire and cross support catheter able to cross REKHA occlusion into DPA/foot. Distal intraluminal position confirmed via injection through catheter. Angioplasty of distal REKHA with 2.0 balloon IA vasodilators administered. Residual calcified stenosis just above the ankle Distal REKHA into foot further treated with 2.5 x 12 mm coronary shockwave intravascular lithotripsy (80 pulses) Additional IA vasodilators administered, initially slow reflow. Distal REKHA segment predilated with 2.0 balloon with extended inflation. Additional IV vasodilators administered Post procedure good angiographic result, brisk flow in REKHA directly into the foot with no evidence of flow-limiting dissection. Contrast used: 75 mL Visipaque Moderate sedation: [id number] Access closure: Mynx Summary: 1. Right lower extremity --widely patent SFA/popliteal arteries. 100% distal REKHA occlusion. 100% mid SOLAR DESIGNER occlusion. Peroneal patent to the ankle and provides collaterals into the foot. Small pedal vessels with diffuse disease. 2. Successful angioplasty of distal REKHA with 2.0 balloon and 2.5 mm intravascular lithotripsy (shockwave, 80 pulses). Recommendations: Continue DAPT with ASA/Clopidogrel at least for next month Will add PAD dose Xarelto 2.5 mg twice daily Follow-up non-invasive vascular testing in 1-2 weeks. I attest to the content of the Intraoperative Record and any orders documented therein. Any exceptions are noted below. Vascular Charges Angiography/Venography Procedure 1: Angiography/Venography charges: [id number] Initial 3rd order or selective abd, pelvic, or LE branch Lower Extremity Interventions Procedure 1: Lower Extremity Intervention charges: [id number] Angioplasty, tibial, peroneal artery, unilateral, initial vessel Additional Services Procedure 1: Additional Services Charges: 17617 Moderate sedation initial 15 min Procedure 2: Additional Services Charges: 20072 Moderate sedation, each additional 15 min Procedure 3: Additional Services Charges: 22098 Ultrasound guidance - vascular access
== END 2024-12-04 16:43 | disposition home or self-care (01) | DRG 279 ==
LOC: SUATTDRO → ED 14:32 → 3W 18:18 → SUATTDRO 18:18 → 3W 19:53 → 2S 12-03 15:53
PROC: CLB.AEU (2024-12-03 11:00)

== ENCOUNTER 2025-03-24 19:35 | Inpatient (IN) ==
[2025-03-24] MEDS: SODIUM CHLORIDE 0.9% 500 ML IV STA (19:50)
[2025-03-24 20:04] LABS: Hematocrit (blood only) 35.2 % (42.0-52.0); Hemoglobin 11.4 g/dl (14.0-18.0); Immature Granulocytes # (auto) 0.07 K/uL (0.01-0.20); Immature Granulocytes % (auto) 0.6 %; Mean Corpuscular Hemoglobin 29.8 pg (25.0-34.0); Mean Corpuscular Volume 92.1 fL (80.0-100.0); Platelet Count 339 K/uL (130-400); RDW Standard Deviation 47.4 fL (36.4-46.3); Red Blood Count 3.82 M/uL (4.70-6.10); White Blood Count 11.87 K/ul (4.8-10.8)
[2025-03-24 20:12] LABS: Appearance Urine Clear (Clear); Bacteria Urine Automated None Seen (None Seen); Cast Urine Automated 0-2 /lpf (0-2); Epithelial Cell Urine Auto 0-2 /hpf (0-2); Glucose Urine UA 3+ (Negative); RBC Urine Automated 0-2 /hpf (0-2); WBC Urine Automated 0-5 /hpf (0-5)
[2025-03-24 20:20] LABS: Alanine Aminotransferase 9.0 U/L (7-52); Albumin Globulin Ratio 0.9 (0.9-2); Alkaline Phosphatase 77.0 U/L (34-104); Anion Gap 7.0 (3-11); Bilirubin,Total 0.3 mg/dl (0.2-1.0); Blood Urea Nitrogen 32.0 mg/dl (6-23); Calcium 9.0 mg/dl (8.6-10.3); Carbon Dioxide 23.0 mmol/L (21-32); Chloride 104.0 mmol/L (98-107); Creatinine Clr Calc Pharmacy 27.3 ml/min; Globulin 4.0 gm/dl (2.5-4.0); Glucose 257.0 mg/dl (70-99(Fasting)); Potassium 5.0 mmol/L (3.5-5.1); Sodium 134.0 mmol/L (136-145); Total Protein 7.7 gm/dl (6.0-8.3)
--- NOTE | 2025-03-24 21:12 | Emergency Department Note ---
Impression & Plan Right flank pain, Calculus of proximal right ureter, LANRE (acute kidney injury) ED Provider Note CHIEF COMPLAINT: "Kidney stone" HISTORY OF PRESENT ILLNESS: This 69-year-old male patient presents to the emergency department via private vehicle for evaluation of "kidney stone". The patient is about a week ago, he developed right flank pain. He states today, he saw his primary care provider at [facility] and had an outpatient ultrasound completed which showed a right sided kidney stone. He states he was given prescription for tramadol and states "it does not work for me". Patient is not taking any additional medications. He states that his pain has been worsening throughout the day and he now reports his pain is a 10/10. He denies fever or chills. Denies body aches. Denies any dysuria or hematuria. Patient states his PCP was supposed to reach out to urology at [facility] earlier today to set up outpatient follow-up, but he did not receive a call for this appointment. Patient denies nausea or vomiting. He is eating and drinking without difficulty. Patient did not take his evening blood pressure medications. History provided by: Patient REVIEW OF SYSTEMS: A 10 system review of systems was performed with positives and pertinent negatives listed in the history of present illness. All other systems were reviewed and are negative. ALLERGIES: Augmentin, latex PHYSICAL EXAM: VITALS: Vitals are noted on the nurse's note and reviewed by myself. GENERAL: This is a 69 year old male, in no acute distress, nondiaphoretic, well- developed well-nourished. SKIN: The skin was without rashes, erythema, edema, or bruising. There is no tenting of the skin. Capillary refill less than 2 seconds. HEAD: Normocephalic atraumatic. EYES: Conjunctivae without injection, sclerae without icterus. MOUTH: Mucous membranes moist. NECK: Supple without nuchal rigidity. No lymphadenopathy. Cervical spine is nontender. No JVD. HEART: Regular rate and rhythm without murmurs gallops or rubs. LUNGS: Clear to auscultation bilaterally without wheezes, rales or rhonchi. No retractions or accessory muscle use. ABDOMEN: Positive bowel sounds x 4. Right CVA, RLQ tenderness to palpation. Soft, nontender, without masses or organomegaly. Pimentel sign negative. No guarding or rebound tenderness. MUSCULOSKELETAL: No muscle atrophy, erythema, or edema noted. Full range of motion without joint tenderness in all extremities. No tenderness to palpation. Normal gait. Strength 5/5 throughout. NEURO: Patient was alert and oriented to person place and time. No focal neurological deficits. An order was placed for continuous nurse monitoring. The monitor showed a normal sinus rhythm at a ventricular rate of 90 bpm, per my interpretation. Imaging as interpreted by myself and the radiologist revealed proximal ureteral stone, with radiologist interpretation as above. I agree with the radiologist's findings as based upon my independent interpretation. EMERGENCY DEPARTMENT COURSE: The patient was evaluated as above. The patient presents to the emergency department due to a known kidney stone. He took 1 dose of tramadol earlier in the day. He is reporting ongoing pain. IV access was obtained, labs were drawn. Labs reviewed. Per my interpretation, no concerning leukocytosis. Mild anemia with hemoglobin 11.4 and hematocrit of 35.2. No thrombocytopenia. Renal function is concerning for an elevated creatinine of 2.88. Hepatic function electrolytes without significant abnormality. Urinalysis with 1+ blood, 2+ protein, 3+ glucose. No bacteria or nitrites. No leukocytes. Patient hydrated IV fluids. He was medicated with acetaminophen and p.o. carvedilol, as his blood pressure significantly elevated and he did not take his nighttime medications. CT imaging was completed and reviewed as above. Per my interpretation, proximal ureteral stone. Given the proximal ureteral stone and LANRE with creatinine 2.88, did recommend inpatient care. No infection on UA. Pt. is not doing well with outpatient pain control. Has not established with outpatient urology. I discussed the case with Dr. Sanchez, [facility] hospitalist physician. She did agree to evaluate the patient for admission. Please see hospitalist dictation regarding ongoing management and care of this patient. Case was discussed with the attending physician. This visit is during a period of high volume and high acuity in the emergency department. I attest that I have personally reviewed the patient medication list. I attest that I have reviewed the patient's blood pressure and it was found to be elevated. Further management by hospitalist. GCS: 15 In the evaluation and treatment of this patient the following differential diagnoses were entertained: Renal colic, UTI, appendicitis, diverticulitis, mesenteric ischemia, aortic pathology, infections, inflammatory bowel disease, PUD, biliary pathology, as well as other pathologies. The chart was completed utilizing [employer] Speech voice recognition software. Grammatical errors, random word insertions, pronoun errors, and incomplete sentences are an occasional consequence of this system due to software limitations, ambient noise, and hardware issues. Any formal questions or concerns about the content, text, or information contained within the body of this dictation should be directly addressed to the provider for clarification. Past Med/Surg History Problem List (Updated 03/24/25 @ 22:38 by Leslie Nunez PA-C) LANRE (acute kidney injury) (Acute) Calculus of proximal right ureter (Acute) Right flank pain (Acute) Anemia of chronic disease Chronic kidney disease, stage 3b follows with dr. holden (last seen october 2024) Diabetic peripheral neuropathy associated with type 2 diabetes mellitus PAD (peripheral artery disease) Right foot infection (Acute) History of foot surgery (Acute) Foot pain, right (Acute) Thrombocytosis History of transmetatarsal amputation of right foot Poorly-controlled hypertension Abnormal ankle brachial index (DIANNE) (Acute) Arthritis of right knee Carotid artery stenosis left carotid endarterectomy 07/2023 Dyslipidemia Vitamin D deficiency Hypertension Type 2 diabetes mellitus Organic impotence (Acute) Medical History Hx of carotid artery stenosis left carotid endarterectomy 07/2023 Dyslipidemia Hypertension History of nephrolithiasis Type 2 diabetes mellitus Osteomyelitis of third toe of right foot History of kidney injury Orchalgia Spermatocele Surgical History Hx of lymph node excision History of amputation of toe (09/2024) Hx of lithotripsy History of total right knee replacement (11/2023) History of carotid endarterectomy (07/2023) History of cardiac cath Family History Aunt Diabetes Uncle Diabetes Social History Smoking Status: Former smoker Tobacco Type: Cigarettes Age Quit Using Tobacco: 30; Second Hand Exposure: No; Do You Dip or Chew Tobacco: No; Hx Alcohol Use: No Hx Substance Use: No Preferred Language: Kittitian Communication Ability: Effective Visual Impairment: Limited Hearing Ability: Hard of Hearing Systems Test Engineer Required: No Beliefs That Will Affect Care: None marital status: Current Living Situation: Spouse Feels Safe at Home: Yes Diet: regular caffeine: Yes Assistive Devices: Cane, Crutches, Special Shoe and Walker Allergies Allergies Allergy/AdvReac Type Severity Reaction Status Date / Time latex Allergy Severe Blister Verified 02/15/25 13:30 amoxicillin AdvReac Intermediate Vomiting Verified 02/15/25 13:30 clavulanic acid AdvReac Intermediate Vomiting Verified 02/15/25 13:30 [From Augmentin] Home Meds Home Medications Medication Instructions Recorded Confirmed blood sugar diagnostic (OneTouch 03/03/23 02/15/25 Ultra Test strips) pen needle, diabetic 31 gauge x 03/03/23 02/15/2512/17" (BD Ultra-Fine Short Pen Needle) carvedilol 25 mg tablet 25 mg PO BID 03/05/23 02/15/25 blood-glucose sensor (FreeStyle 05/13/23 02/15/25 Darnell 3 Sensor device) glucagon 1 mg/0.2 mL subcutaneous 1 mg subcut UD PRN prn 05/13/23 02/15/25 auto-injector aspirin 81 mg chewable tablet 81 mg PO QAM 09/14/24 02/15/25 clopidogrel 75 mg tablet 75 mg PO QPM 10/13/24 02/15/25 amlodipine 10 mg tablet 10 mg PO QAM 11/29/24 02/15/25 cephalexin 500 mg capsule mg PO 01/10/25 02/15/25 Previous Rx's Medication Instructions Recorded acetaminophen 325 mg tablet 650 mg (2 x 325 mg) PO QID pain 12/04/24 (Tylenol) #120 tabs metformin 1,000 mg tablet 1,000 mg PO BID #60 tabs 12/09/24 gabapentin 300 mg capsule 600 mg (2 x 300 mg) PO TID #180 12/28/24 caps insulin aspart U-100 100 unit/mL 50 unit (0.5 mL) subcut DAILY 90 01/10/25 (3 mL) subcutaneous pen (Novolog days #45 mL FlexPen U-100 Insulin aspart) insulin glargine 100 unit/mL (3 30 unit (0.3 mL) subcut AMPM 90 01/10/25 mL) subcutaneous pen (Lantus days #60 mL Solostar U-100 Insulin) losartan 100 mg tablet 100 mg PO QAM #90 tabs 02/02/25 atorvastatin 80 mg tablet 80 mg PO DAILY #90 tabs 02/14/25 cholecalciferol (vitamin D3) 125 125 mcg PO DAILY #1 cap 02/14/25 mcg (5,000 unit) capsule sodium zirconium cyclosilicate 10 10 g PO WK #11 ea 02/15/25 gram oral powder packet (Lokelma) insulin pump cart,auto,BT,G6/L #15 ea 02/28/25 (Omnipod 5 (G6/Darnell 2 Plus) subcutaneous cartridge) insulin pump cartridge,auto #1 ea 02/28/25 dose,BT,G6/L2 with controller subcutaneous (Omnipod 5 Intro Kit(G6/[id number]) subcutaneous cartridge) rivaroxaban 2.5 mg tablet (Xarelto) 2.5 mg PO BID #60 tabs 03/04/25 insulin aspart U-100 100 unit/mL 100 unit continuous subcutaneous 03/14/25 subcutaneous solution (Novolog infusion DAILY #30 mL U-100 Insulin aspart) Results & Data (ED) Vital Signs Vital Signs - 24 hr 03/24/25 19:38 03/24/25 20:49 03/24/25 21:21 Temperature 36.7 C Temperature Source Temporal Artery Scan Pulse Rate 90 86 83 Respiratory Rate 18 20 Respiratory Effort / Characteristics Non-Labored Spontaneous Respiratory Depth Normal Respiratory Pattern Regular Blood Pressure 234/105 H 230/99 H Blood Pressure Mean 148 142 Pulse Oximetry 94 Oxygen Delivery Method Room Air Sepsis Recent Fever Within 48 Hours No Sepsis New/Unexplained Change in Mental Status N/A Sepsis Action Taken by Nursing No Action Required 03/24/25 22:00 Temperature Temperature Source Pulse Rate 76 Respiratory Rate 22 Respiratory Effort / Characteristics Respiratory Depth Respiratory Pattern Blood Pressure 195/76 H Blood Pressure Mean 115 Pulse Oximetry 97 Oxygen Delivery Method Sepsis Recent Fever Within 48 Hours Sepsis New/Unexplained Change in Mental Status Sepsis Action Taken by Nursing Laboratory Data 03/24/25 19:48 03/24/25 19:48 Lab Results 03/24/25 Range/Units 19:48 WBC 11.87 H (4.8-10.8) K/ul RBC 3.82 L (4.70-6.10) M/uL Hgb 11.4 L (14.0-18.0) g/dl Hct 35.2 L (42.0-52.0) % MCV 92.1 (80.0-100.0) fL MCH 29.8 (25.0-34.0) pg MCHC 32.4 (32.0-36.0) g/dL RDW Std Deviation 47.4 H (36.4-46.3) fL RDW Coeff of Flavia 14.0 (11.5-14.5) % Plt Count 339 (130-400) K/uL MPV 9.9 (9.4-12.4) fL Immature Gran % (Auto) 0.6 % Neut % (Auto) 79.1 % Lymph % (Auto) 5.1 % [place] % (Auto) 13.1 % Eos % (Auto) 1.8 % Baso % (Auto) 0.3 % Neut # (Auto) 9.39 H (1.40-6.50) K/uL Lymph # (Auto) 0.61 L (1.20-3.40) K/uL [place] # (Auto) 1.56 H (0.11-0.59) K/uL Eos # (Auto) 0.21 (0.00-0.50) K/uL Baso # (Auto) 0.03 (0.00-0.20) K/uL Immature Gran # (Auto) 0.07 (0.01-0.20) K/uL Sodium 134 L (136-145) mmol/L Potassium 5.0 (3.5-5.1) mmol/L Chloride 104 (98-107) mmol/L Carbon Dioxide 23 (21-32) mmol/L Anion Gap 7 (3-11) BUN 32 H (6-23) mg/dl Creatinine 2.88 H (0.6-1.4) mg/dl Est Cr Clr Drug Dosing 27.3 ml/min eGFR 22.61 BUN/Creatinine Ratio 11.1 (10-20) Glucose 257 H (70-99(Fasting)) mg/dl Calcium 9.0 (8.6-10.3) mg/dl Total Bilirubin 0.3 (0.2-1.0) mg/dl AST 10 L (13-39) U/L ALT 9 (7-52) U/L Alkaline Phosphatase 77 (34-104) U/L Total Protein 7.7 (6.0-8.3) gm/dl Albumin 3.7 (3.4-5.0) gm/dl Globulin 4.0 (2.5-4.0) gm/dl Albumin/Globulin Ratio 0.9 (0.9-2) Urine Color Yellow Urine Appearance Clear (Clear) Urine pH 5.0 (4.5-7.5) Ur Specific [place] 1.021 (1.000-1.030) Urine Protein 2+ H (Negative) Urine Glucose (UA) 3+ H (Negative) Urine Ketones Negative (Negative) Urine Blood 1+ H (Negative) Urine Nitrite Negative (Negative) Urine Bilirubin Negative (Negative) Urine Urobilinogen Negative (Negative) Ur Leukocyte Esterase Negative (Negative) Urine WBC (Auto) 0-5 (0-5) /hpf Urine RBC (Auto) 0-2 (0-2) /hpf U Hyaline Cast (Auto) 0-2 (0-2) /lpf U Epithel Cells (Auto) 0-2 (0-2) /hpf Urine Bacteria (Auto) None Seen (None Seen) Urine Comment Administered Medications Discontinued Medications Carvedilol (Carvedilol 25 Mg Tab) 25 mg PO NOW ONE Stop: 03/24/25 21:03 Last Admin: 03/24/25 21:29 Dose: 25 mg Documented By: SHALONDA Sodium Chloride (Nss) 500 mls @ 999 mls/hr IV .Q31M STA Stop: 03/24/25 20:11 Last Infusion: 03/24/25 21:13 Dose: Infused Documented By: Admin: 03/24/25 19:50 Dose: 999 mls/hr Documented By: AYDEE Acetaminophen (Ofirmev) 1,000 mg in 100 mls @ 400 mls/hr IV NOW STA Stop: 03/24/25 21:16 Last Admin: 03/24/25 21:30 Dose: 400 mls/hr Documented By: SHALONDA Sodium Chloride (Nss) 1,000 mls @ 999 mls/hr IV .Q1H1M ONE Stop: 03/24/25 22:02 Last Admin: 03/24/25 21:30 Dose: 999 mls/hr Documented By: SHALONDA Discharge Plan Visit Data Chief Complaint: Kidney Stone Stated Complaint: KIDNEY STONE ED Provider: Reji Christianson ED Midlevel Provider: Leslie Nunez Discharge Problem: Right flank pain, Calculus of proximal right ureter, LANRE (acute kidney injury) Patient Disposition: Admitted As Inpatient Condition: Good Forms Stand Alone Forms: [facility] Prescriptions Prescriptions: No Action metformin 1,000 mg tablet 1,000 mg PO BID Qty: 60 5RF gabapentin 300 mg capsule 600 mg PO TID Qty: 180 5RF losartan 100 mg tablet 100 mg PO QAM Qty: 90 3RF atorvastatin 80 mg tablet 80 mg PO DAILY Qty: 90 3RF cholecalciferol (vitamin D3) 125 mcg (5,000 unit) capsule 125 mcg PO DAILY Qty: 1 0RF (DME) Omnipod 5 Intro(G6/[id number]) Cartridge See Rx Instructions .ROUTE .MEDSUPPLY Qty: 1 0RF Rx Instructions: change pods every 2 days (DME) Omnipod 5 (G6/Darnell 2 Plus) Cartridge See Rx Instructions .ROUTE .MEDSUPPLY Qty: 15 11RF Rx Instructions: change pods every 2 days rivaroxaban [Xarelto] 2.5 mg tablet 2.5 mg PO BID Qty: 60 3RF insulin aspart U-100 [Novolog U-100 Insulin aspart] 100 unit/mL solution 100 unit continuous subcutaneous infusion DAILY Qty: 30 5RF glucagon 1 mg/0.2 mL auto-injector 1 mg subcut UD PRN (Reason: prn) (DME) FreeStyle Darnell 3 Sensor Device See Rx Instructions .Route Rx Instructions: change every 14 days (DME) pen needle, diabetic [BD Ultra-Fine Short Pen Needle] 31 gauge x 5/16" needle See Rx Instructions .Route Rx Instructions: Inject insulin daily (DME) OneTouch Ultra Test Strip See Rx Instructions .Route Rx Instructions: Test blood sugar two times daily carvedilol 25 mg tablet 25 mg PO BID Rx Instructions: must administer with a meal/food clopidogrel 75 mg tablet 75 mg PO QPM Lokelma 10 gram powder in packet 10 g PO WK Qty: 11 6RF Rx Instructions: twice a week cephalexin 500 mg capsule PO insulin glargine [Lantus Solostar U-100 Insulin] 100 unit/mL (3 mL) insulin pen 30 unit subcut AMPM 90 Days Qty: 60 3RF Rx Instructions: Take 30 units in the AM and 30 units in the PM insulin aspart U-100 [Novolog FlexPen U-100 Insulin] 100 unit/mL (3 mL) insulin pen 50 unit subcut DAILY MDD 50 UNITS 90 Days Qty: 45 0RF Rx Instructions: SLIDING SCALE...TAKE 8 UNITS WITH BREAKFAST, 14 UNITS WITH LUNCH, & 16 UNITS WITH SUPPER. aspirin 81 mg Tablet,Chewable 81 mg PO QAM Rx Instructions: takes a couple times a week when he thinks about it amlodipine 10 mg tablet 10 mg PO QAM acetaminophen [Tylenol] 325 mg tablet 650 mg PO QID Qty: 120 0RF Referrals Referrals: Elisabet Stevenson PA-C [Primary Care Provider] -
[2025-03-24] MEDS: SODIUM CHLORIDE 0.9% 1,000 ML IV ONE (21:30)
[2025-03-24] MEDS: ACETAMINOPHEN 1,000 MG/100 ML VIAL IV STA (21:30)
--- NOTE | 2025-03-24 22:54 | CT Scan Report ---
Exam(s): CT ABDOMEN + PELVIS Without Contrast EXAM: CT Abdomen and Pelvis Without Intravenous Contrast CLINICAL HISTORY: Reason for exam: R flank pain. TECHNIQUE: Axial computed tomography images of the abdomen and pelvis without intravenous contrast. CTDI is 18.04 mGy and DLP is 1006.49 mGy-cm. Automated exposure control was utilized for the study. A dose lowering technique was utilized adhering to the principles of ALARA. Mild breathing motion artifact. COMPARISON: CT abdomen pelvis 06/10/2018. FINDINGS: Lung bases: Clear. Liver: Unremarkable. Gallbladder and bile ducts: Normal gallbladder. No ductal dilation. Pancreas: No ductal dilation, or acute pancreatitis. Spleen: Unremarkable. Adrenals: Unremarkable. Kidneys and ureters: Moderate bilateral perinephric edema and mild right hydronephrosis, secondary to a stone or 2 adjacent ovoid stones in the right mid to distal ureter at L4-5. Measured together at 1 x 10 mm. Multiple, additional non obstructing stones right kidney. Stomach and bowel: Diverticulosis without acute diverticulitis. Fairly gasless small bowel, limiting evaluation for wall thickening or enteritis, correlate clinically to exclude this entity. No obstruction. Appendix: Normal. Intraperitoneal space: No free air or fluid. Bones/joints: No acute fracture. Soft tissues: Unremarkable. Vasculature: No aortic aneurysm. Lymph nodes: No enlarged lymph nodes. Bladder: Unremarkable. Reproductive: Unremarkable as visualized. IMPRESSION: 1. Mild right hydronephrosis secondary to multiple stones or an irregular ovoid stone, measured together at 1 x 10 mm in the mid to distal ureter. 2. Similar appearing stone or stones non-obstructing in the right kidney. 3. Small wall wall thickening may be artifact from underdistention, enteritis not excluded in the setting, correlate clinically. 4. Diverticulosis without acute diverticulitis. Electronically signed by: Emily Calderon M.D. 03/24/25 22:53 PM
[2025-03-24] MEDS ORDERED: CARBOHYDRATES FOR HYPOGLYCEMIA PO PRN (23:35)
[2025-03-24] MEDS ORDERED: DEXTROSE 50% 50 ML SYRINGE IV PRN (23:35)
[2025-03-24] MEDS ORDERED: GLUCAGON FOR INJ 1 MG VIAL SQ PRN (23:35)
[2025-03-24] MEDS ORDERED: GLUCOSE 10 TAB/TUBE PO PRN (23:35)
[2025-03-24] MEDS ORDERED: GLUCOSE 40% GEL 15 GM TUBE PO PRN (23:35)
[2025-03-24] MEDS ORDERED: PHARMACY GLYCEMIC MGMT CONSULT PRN (23:35)
--- NOTE | 2025-03-24 23:38 | History & Physical Report ---
Date of Service March 24, 2025 Assessment & Plan (1) LANRE (acute kidney injury): (2) Calculus of proximal right ureter: (3) Right flank pain: (4) Chronic kidney disease, stage 3b: (5) Poorly-controlled hypertension: (6) Type 2 diabetes mellitus: Plan 69 yo male PMHX CKD-III, T2DM w/peripheral neuropathy on insulin, PAD, HTN, OA, HLD admitted for R renal/ureteral calculus identified at his PCP/outside imaging with [facility] in [place]. #Renal/Ureteral Calculi Pain control with Tylenol and Dilaudid Urology consulted for further management Will make NPO #LANRE on CKD-III Suspect post-renal in the setting of calculi and hydronephrosis Expect to improve with definitive management of calculi Hold losartan #HTN - poorly controlled Hydralazine 10mg IV q6h BP > 180 systolic Losartan held due to LANRE Continue carvedilol, amlodipine #T2DM w/peripheral neuropathy Hold home meds Pharmacy glycemic consult Continue gabapentin #HLD Continue atorvastatin FENGI: NPO Code status: full code DVT prophylaxis: SCDs Disposition: MSO History of Present Illness Primary Care Provider: Elisabet Stevenson PA-C 69 yo male PMHX CKD-III, T2DM w/peripheral neuropathy on insulin, PAD, HTN, OA, HLD admitted for R renal/ureteral calculus identified at his PCP/outside imaging with [facility]. Initially, the pts PCP was going to try to have him see [facility]rology on 03/25/25 as an outpatient but this was unable to be arranged and it was suggested that the patient present to the ER for evaluation. The patient has had significant R flank pain. Denies fevers, chills, CP, SOB, N/V/D. ED course: CT reveals 1. Mild right hydronephrosis secondary to multiple stones or an irregular ovoid stone, measured together at 1 x 10 mm in the mid to distal ureter. 2. Similar appearing stone or stones non-obstructing in the right kidney. 3. Small wall wall thickening may be artifact from underdistention, enteritis not excluded in the setting, correlate clinically. 4. Diverticulosis without acute diverticulitis Labs reveal: mild leukocytosis, mild hyponatremia, significantly increased creatinine, urine does not appear infected Recieved: NSS 1.5L bolus, Tylenol 1g IV Allergies Allergy/AdvReac Type Severity Reaction Status Date / Time latex Allergy Severe Blister Verified 02/15/25 13:30 amoxicillin AdvReac Intermediate Vomiting Verified 02/15/25 13:30 clavulanic acid AdvReac Intermediate Vomiting Verified 02/15/25 13:30 [From Augmentin] Home Medications Medication Instructions Recorded Confirmed Type blood sugar diagnostic (OneTouch 03/03/23 02/15/25 History Ultra Test strips) pen needle, diabetic 31 gauge x 03/03/23 02/15/25 History 5/16" (BD Ultra-Fine Short Pen Needle) carvedilol 25 mg tablet 25 mg PO BID 03/05/23 02/15/25 History blood-glucose sensor (FreeStyle 05/13/23 02/15/25 History Darnell 3 Sensor device) glucagon 1 mg/0.2 mL subcutaneous 1 mg subcut UD PRN prn 05/13/23 02/15/25 History auto-injector aspirin 81 mg chewable tablet 81 mg PO QAM 09/14/24 02/15/25 History clopidogrel 75 mg tablet 75 mg PO QPM 10/13/24 02/15/25 History amlodipine 10 mg tablet 10 mg PO QAM 11/29/24 02/15/25 History acetaminophen 325 mg tablet 650 mg (2 x 325 mg) PO QID pain 12/04/24 02/15/25 Rx (Tylenol) #120 tabs metformin 1,000 mg tablet 1,000 mg PO BID #60 tabs 12/09/24 02/15/25 Rx gabapentin 300 mg capsule 600 mg (2 x 300 mg) PO TID #180 12/28/24 02/15/25 Rx caps cephalexin 500 mg capsule mg PO 01/10/25 02/15/25 History insulin aspart U-100 100 unit/mL 50 unit (0.5 mL) subcut DAILY 90 01/10/25 02/15/25 Rx (3 mL) subcutaneous pen (Novolog days #45 mL FlexPen U-100 Insulin aspart) insulin glargine 100 unit/mL (3 30 unit (0.3 mL) subcut AMPM 90 01/10/25 02/15/25 Rx mL) subcutaneous pen (Lantus days #60 mL Solostar U-100 Insulin) losartan 100 mg tablet 100 mg PO QAM #90 tabs 02/02/25 02/15/25 Rx atorvastatin 80 mg tablet 80 mg PO DAILY #90 tabs 02/14/25 02/15/25 Rx cholecalciferol (vitamin D3) 125 125 mcg PO DAILY #1 cap 02/14/25 02/15/25 Rx mcg (5,000 unit) capsule sodium zirconium cyclosilicate 10 10 g PO WK #11 ea 02/15/25 02/15/25 Rx gram oral powder packet (Lokelma) insulin pump cart,auto,BT,G6/L #15 ea 02/28/25 Rx (Omnipod 5 (G6/Darnell 2 Plus) subcutaneous cartridge) insulin pump cartridge,auto #1 ea 02/28/25 Rx dose,BT,G6/L2 with controller subcutaneous (Omnipod 5 Intro Kit(G6/Hxdie1Qpbh) subcutaneous cartridge) rivaroxaban 2.5 mg tablet (Xarelto) 2.5 mg PO BID #60 tabs 03/04/25 Rx insulin aspart U-100 100 unit/mL 100 unit continuous subcutaneous 03/14/25 Rx subcutaneous solution (Novolog infusion DAILY #30 mL U-100 Insulin aspart) Past Med/Surg History Problem List (Updated 03/24/25 @ 22:38 by Leslie Nunez PA-C) LANRE (acute kidney injury) (Acute) Calculus of proximal right ureter (Acute) Right flank pain (Acute) Anemia of chronic disease Chronic kidney disease, stage 3b follows with dr. delaney (last seen october 2024) Diabetic peripheral neuropathy associated with type 2 diabetes mellitus PAD (peripheral artery disease) Right foot infection (Acute) History of foot surgery (Acute) Foot pain, right (Acute) Thrombocytosis History of transmetatarsal amputation of right foot Poorly-controlled hypertension Abnormal ankle brachial index (DIANNE) (Acute) Arthritis of right knee Carotid artery stenosis left carotid endarterectomy 07/2023 Dyslipidemia Vitamin D deficiency Hypertension Type 2 diabetes mellitus Organic impotence (Acute) Medical History Hx of carotid artery stenosis left carotid endarterectomy 07/2023 Dyslipidemia Hypertension History of nephrolithiasis Type 2 diabetes mellitus Osteomyelitis of third toe of right foot History of kidney injury Orchalgia Spermatocele Surgical History Hx of lymph node excision History of amputation of toe (09/2024) Hx of lithotripsy History of total right knee replacement (11/2023) History of carotid endarterectomy (07/2023) History of cardiac cath Family History Aunt Diabetes Uncle Diabetes Social History Smoking Status: Never smoker Tobacco Type: Declines Age Quit Using Tobacco: 30; Second Hand Exposure: No; Do You Dip or Chew Tobacco: No; Tobacco Cessation Education Requested by Patient: No Hx Alcohol Use: No Hx Substance Use: No Preferred Language: Nauruan Communication Ability: Effective Visual Impairment: Limited Hearing Ability: Hard of Hearing [employer] Nutrition Services Assistant Required: No Beliefs That Will Affect Care: None marital status: Current Living Situation: Spouse Other Information That Helps Us Care for You: No Feels Safe at Home: Yes Safety Concerns: Feels Safe At This Time Diet: regular caffeine: Yes Assistive Devices: Cane, Crutches, Special Shoe and Walker Review of Systems Review of Systems: reviewed, per HPI Physical Exam Physical Exam: Constitutional: well-appearing, no acute distress HEENT: NCAT, no conjunctival injection CV: regular rhythm, no murmur appreciated, extremities well-perfused, no LE edema Resp: CTABL, no wheezes/rales/rhonchi appreciated, no increased work of breathing GI: soft, nondistended, +flank pain MSK: R midfoot amputation Skin: warm, dry, no rash appreciated Neuro: alert, oriented, no focal neurologic deficit appreciated Results & Data Results & Data Vital Signs (Past 12 Hours) Vital Signs Temp Pulse Resp BP Pulse Ox O2 Del Method 03/24/25 22:00 76 22 195/76 H 97 03/24/25 21:21 83 20 230/99 H 03/24/25 20:49 86 03/24/25 19:38 36.7 C 90 18 234/105 H 94 Room Air Code Status & VTE Plan VTE Prophylaxis Plan VTE Prophylaxis will be ordered: Yes Resident Activity Tracking Resident Involvement: Resident Care Provided Care Provided: Adult Hospital Medicine (6) Type 2 diabetes mellitus 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
[2025-03-25] MEDS: LANTUS PER UNIT CHARGE SQ STA (00:13)
[2025-03-25] MEDS: INSULIN ASPART PER UNIT CHARGE SC STA (00:14)
[2025-03-25] MEDS ORDERED: ONDANSETRON INJ 2 MG/ML 2 ML VIAL IV PRN ×2 (01:28→14:38)
[2025-03-25] MEDS ORDERED: POLYETHYLENE (MIRALAX) 17 GM PACK PO PRN (01:28)
[2025-03-25] MEDS ORDERED: ACETAMINOPHEN 1,000 MG/100 ML VIAL IV PRN (01:28)
[2025-03-25] MEDS ORDERED: ALUMINUM/MAGNESIUM SUSP 30 ML UDC PO PRN (01:28)
[2025-03-25] MEDS ORDERED: MAGNESIUM HYDROXIDE SUSP 30 ML UDC PO PRN (01:28)
[2025-03-25] MEDS: HYDROmorphone INJ 0.5 MG/0.5 ML SYR IV PRN (01:57)
[2025-03-25] MEDS: INSULIN ASPART PER UNIT CHARGE SC SCH ×4 (06:07→17:26)
[2025-03-25 07:34] LABS: Hematocrit (blood only) 30.9 % (42.0-52.0); Hemoglobin 10.0 g/dl (14.0-18.0); Immature Granulocytes # (auto) 0.05 K/uL (0.01-0.20); Immature Granulocytes % (auto) 0.5 %; Mean Corpuscular Hemoglobin 29.8 pg (25.0-34.0); Mean Corpuscular Volume 92.0 fL (80.0-100.0); Platelet Count 286 K/uL (130-400); RDW Standard Deviation 46.4 fL (36.4-46.3); Red Blood Count 3.36 M/uL (4.70-6.10); White Blood Count 9.34 K/ul (4.8-10.8)
[2025-03-25 07:59] LABS: Anion Gap 5.0 (3-11); Blood Urea Nitrogen 26.0 mg/dl (6-23); Calcium 8.4 mg/dl (8.6-10.3); Carbon Dioxide 24.0 mmol/L (21-32); Chloride 108.0 mmol/L (98-107); Creatinine Clr Calc Pharmacy 31.8 ml/min; Glucose 75.0 mg/dl (70-99(Fasting)); Potassium 4.4 mmol/L (3.5-5.1); Sodium 137.0 mmol/L (136-145)
[2025-03-25] MEDS: GABAPENTIN 300 MG CAP PO SCH (08:04)
[2025-03-25] MEDS: ATORVASTATIN 40 MG TAB PO SCH (08:05)
[2025-03-25] MEDS: HYDROmorphone INJ 1 MG/ML SYRINGE IV PRN (08:20)
[2025-03-25] MEDS ORDERED: LANTUS PER UNIT CHARGE SQ SCH (09:00)
--- NOTE | 2025-03-25 09:49 | Pharmacy Report ---
Pharmacy Glycemic Short Note 2 - Date of Service March 25, 2025 - Glycemic Short BSG Results (Last 24 hours): 03/24/25 03/25/25 03/25/25 19:48 00:02 06:03 Glucose 257 H POC Glucose 166 H 78 03/25/25 07:11 Glucose 75 POC Glucose OUTPATIENT ANTIDIABETIC REGIMEN: * Lantus 30 units SC BID per med rec (patient reports 20 units BID) * Novolog 8 units SC w/ breakfast, 14 units SC w/ lunch, and 16 units SC w/ dinner * Metformin 1 g PO BIDM * Per patient, plan is to transition to Omnipod pump in near future (pending education) HbA1c: 7.1% (02/02/25) ASSESSMENT: * GC is a 69 year old male who presented to ED for evaluation of kidney stone * Found to have likely post-renal LANRE due to obstruction (calculi) * Pharmacy consulted for glycemic management last evening and given 30 units of basal and 2 units of bolus * Blood sugar of 78 mg/dL this morning - hold off on basal for now and reassess this evening * Patient currently NPO for cystoscopy PLAN FOR INPATIENT GLYCEMIC CONTROL: * Hold outpatient oral diabetes medications * Basal insulin * Lantus 0-5-10-15 units SC HS * This order may change if dexamethasone given in OR (if so, anticipating 20- 30 units of Lantus this evening) * Bolus insulin * NovoLog per scale ACHS or Q6hrs while NPO * Goal Range: Low 110 mg/dL - High 140 mg/dL * Correction Factor: 25 mg/dL/unit (15 mg/dL/unit if dexamethasone given in OR) * Nutritional / Prandial insulin per carb ratio of 1 unit per 8 grams CHO consumed (1 unit per 5 grams CHO if dexamethasone given in OR)
[2025-03-25] MEDS ORDERED: Nursing to Pharmacy Communication SCH ×2 (12:00→17:00)
--- NOTE | 2025-03-25 12:23 | Hospitalist Progress Note ---
Date of Service March 25, 2025 Assessment & Plan (1) LANRE (acute kidney injury): (2) Calculus of proximal right ureter: (3) Right flank pain: (4) Chronic kidney disease, stage 3b: (5) Poorly-controlled hypertension: (6) Type 2 diabetes mellitus: Plan 69 yo male PMHX CKD-III, T2DM w/peripheral neuropathy on insulin, PAD, HTN, OA, HLD admitted for R renal/ureteral calculus identified at his PCP/outside imaging with [facility] in [place]. #Renal/Ureteral Calculi CTAP: mild right hydronephrosis secondary to multiple stones or an irregular ovoid stone measured 1x10mm in mid to distal ureter. Similar appearing stone non-obstructing in right kidney. UA negative for infection - defer further abx. CBC w/o leukocytosis. Urology consulted - s/p cystoscopy w/ stent placement by Dr. Chávez 03/25. Pain control w/ Tylenol & Dilaudid prn for severe pain. Flomax ordered. --> can continue on dc #LANRE on CKD-III Suspect post-renal in the setting of calculi and hydronephrosis Creatinine 2.88 on admission - improvement to 2.48 --> expect to improve following stent placement. Hold losartan until resolves. --> can likely resume 03/26. #HTN - poorly controlled Hydralazine 10mg IV q6h BP > 180 systolic Losartan held due to LANRE Continue carvedilol, amlodipine #T2DM w/peripheral neuropathy Hold home meds Pharmacy glycemic consult Continue gabapentin #HLD Continue atorvastatin Code status: full code DVT prophylaxis: SCDs Updated at bedside 03/25. Admission and Anticipated Discharge Date Admission Date: March 24, 2025 Supervising Physician Co-Signing Physician Notes The patient was not seen by me. The chart was reviewed. Case discussed with JAYSHREE Vieira. Agree with assessment and plan Subjective Brennan was seen and examined this morning. He reports his pain has been moderately under control this AM. Denies any additional complaints. Is to go for a cystoscopy this afternoon. Physical Exam Constitutional: WD/WN, vitals as above Eyes: PERRL, conjunctivae normal, anicteric sclerae Respiratory: normal respiratory effort Skin: no rashes, warm and dry Neurologic: PERRL, EOMI, accommodation nl, no face palsy, no dysarthria Psychiatric: A+Ox3, euthymic affect Results & Data Results & Data Vital Signs (Past 12 Hours) Vital Signs Temp Pulse Pulse Pulse Resp BP BP 03/25/25 11:46 36.8 C 78 18 196/83 H 03/25/25 11:08 195/83 H 03/25/25 07:50 36.8 C 78 18 210/85 H 03/25/25 06:18 74 175/74 H 03/25/25 01:28 36.7 C 79 20 225/105 H 03/25/25 01:18 36.7 C 79 20 225/105 H 03/25/25 01:18 36.7 C 79 20 225/105 H 03/25/25 00:30 72 18 185/96 H Pulse Ox O2 Del Method 03/25/25 11:46 96 Room Air 03/25/25 11:08 03/25/25 07:50 96 Room Air 03/25/25 06:18 03/25/25 01:28 97 Room Air 03/25/25 01:18 97 Room Air 03/25/25 01:18 97 Room Air 03/25/25 00:30 97 Room Air PG Care Time/CCT Total # of Minutes Spent Total Time Spent with Patient: Total time spent is greater than 50% in coordination of care (as documented) at patient's floor/unit and/or counseling patient: Coding Level of Care Code 02917 SUB INP/OBS CARE 2/35MIN Diagnoses LANRE (acute kidney injury) N17.9 Calculus of proximal right ureter N20.1 Right flank pain R10.9 Chronic kidney disease, stage 3b N18.32 Poorly-controlled hypertension I10 Type 2 diabetes mellitus with diabetic mononeuropathy, with long-term current use of insulin E11.41; Z79.4 Diabetes mellitus complication detail: with mononeuropathy Diabetes mellitus complication status: with neurologic complications Diabetes mellitus terminal superintendent insulin use: with retirement use (6) Type 2 diabetes mellitus Diabetes mellitus complication detail: with mononeuropathy Diabetes mellitus complication status: with neurologic complications Diabetes mellitus retirement insulin use: with terminal superintendent use Qualified Code(s): E11.41 - Type 2 diabetes mellitus with diabetic mononeuropathy; Z79.4 - care home (current) use of insulin
--- NOTE | 2025-03-25 13:25 | Urology Consultation ---
Date of Consultation March 25, 2025 Assessment & Plan (1) LANRE (acute kidney injury): (2) Right flank pain: (3) Right ureteral stone: (4) Hydronephrosis: Plan 69 yo male admitted with intractable right flank pain and LANRE secondary to an obstructing right ureteral stone He is afebrile, hypertensive, otherwise stable Labs show no leukocytosis, hemoglobin 10.0, creatinine 2.48 UA not suggestive of infection We discussed acute stone management with cystoscopy and stent placement. Ureteral stents were discussed as well as postoperative issues and pain management. He is aware a second procedure will be needed for stone treatment. Risks and benefits were discussed. Expected clinical course reviewed. All questions were answered. Will plan to proceed to the OR today for cystoscopy, right retrograde pyelogram, right ureteral stent placement. Risks and benefits to be reviewed with patient by Dr. Chávez. Keep NPO. Will cover with Ancef preoperatively. Urology will follow. Attending note: Patient independently assessed, examined, interviewed, and evaluated. Agree with note as above. Patient's vitals and labs were all reviewed. Pertinent values in the HPI and plan section. Imaging was reviewed interpreted by myself. Agree with read. Vitals were reviewed. Discussed findings extensively with patient and family. Reviewed with nurse practitioner as well as consulting physicians/team. Patient's complicated medical and surgical history was reviewed and summarized above. Patient's surgical, medical, social, and family history were all reviewed with pertinent values as above. Discussed patient's current diagnosis as well as concerns and issues. Reviewed different options moving forward. Discussed potential risks and benefits as well as possible options and concerns. Reviewed potential surgical options and interventions. Discussed potential issues and concerns related to intervention. Risk and benefits were discussed extensively with patient and any available family. Discussed potential risks related to anesthesia. Discussed risks of bleeding infection and injury. Patient is having significant hypertensive urgency/emergencies. Additionally has significant LANRE. Reviewed patient's lab and blood work. Discussed patient's vital signs and the significant hypertension. Discussed current findings and creatinine. Discussed ongoing pain issues and concerns. Numerous possible stones along the ureter with severe obstruction of the right kidney. Reviewed options for intervention. Discussed concerns and issues. Discussed possible stent placement versus attempted stone extraction. Due to the numerous stones along the ureter and within the kidney would be unlikely to be able to remove all of the stones. Additionally will need to closely monitor patient postoperatively with plans for reassessment. Patient was agreeable to move forward with intervention. Discussed options for conservative measure and maximum expulsion medical therapy and symptom controlled. Discussed ESWL. Discussed Ureteroscopy with extraction and/or laser lithotripsy. Risks and benefits were discussed. Stone free rates were also discussed as well as possibility of multiple procedures. Ureteral stents were discussed as well as post-operative issues and pain management. All questions were answered. Risks and benefits discussed at length for procedure. These include bleeding, infection, injury to surrounding tissues or organs, and risks associated with anesthesia. Patient states understanding and agrees to proceed. Will sign consent and schedule. Plan for cystoscopy with possible right stent placement History of Present Illness Attending Physician: Andriy Riley MD History of Present Illness 69 year old male who presented to the ED on 03/24 with severe right flank pain. Patient reports he was diagnosed with a right sided stone with [facility]abrese. He was trying to manage outpatient with oral tramadol. However, due to worsening pain, he presented to the [place] ED. He was afebrile and hypertensive on arrival. Labs showing mild leukocytosis and creatinine 2.48. Urinalysis not suggestive of infection. CT abdomen pelvis showing an obstructing 10 mm mid to distal ureteral stone/stones with mild right-sided hydronephrosis. He is admitted to medicine service. Patient seen at bedside today. He is awake and resting in bed on arrival. No acute distress. Right-sided pain has improved, has been managing with medication. Denies fever, chills, nausea, vomiting. Has been NPO. Allergies Allergy/AdvReac Type Severity Reaction Status Date / Time latex Allergy Severe Blister Verified 03/25/25 14:07 amoxicillin AdvReac Intermediate Vomiting Verified 03/25/25 14:07 clavulanic acid AdvReac Intermediate Vomiting Verified 03/25/25 14:07 [From Augmentin] Home Medications Medication Instructions Recorded Confirmed Type blood sugar diagnostic (OneTouch 03/03/23 02/15/25 History Ultra Test strips) pen needle, diabetic 31 gauge x 03/03/23 02/15/25 History 5/16" (BD Ultra-Fine Short Pen Needle) carvedilol 25 mg tablet 25 mg PO BID 03/05/23 02/15/25 History blood-glucose sensor (FreeStyle 05/13/23 02/15/25 History Darnell 3 Sensor device) glucagon 1 mg/0.2 mL subcutaneous 1 mg subcut UD PRN prn 05/13/23 02/15/25 History auto-injector aspirin 81 mg chewable tablet 81 mg PO QAM 09/14/24 02/15/25 History clopidogrel 75 mg tablet 75 mg PO QPM 10/13/24 02/15/25 History amlodipine 10 mg tablet 10 mg PO QAM 11/29/24 02/15/25 History acetaminophen 325 mg tablet 650 mg (2 x 325 mg) PO QID pain 12/04/24 02/15/25 Rx (Tylenol) #120 tabs metformin 1,000 mg tablet 1,000 mg PO BID #60 tabs 12/09/24 02/15/25 Rx gabapentin 300 mg capsule 600 mg (2 x 300 mg) PO TID #180 12/28/24 02/15/25 Rx caps cephalexin 500 mg capsule mg PO 01/10/25 02/15/25 History insulin aspart U-100 100 unit/mL 50 unit (0.5 mL) subcut DAILY 90 01/10/25 02/15/25 Rx (3 mL) subcutaneous pen (Novolog days #45 mL FlexPen U-100 Insulin aspart) insulin glargine 100 unit/mL (3 30 unit (0.3 mL) subcut AMPM 90 01/10/25 02/15/25 Rx mL) subcutaneous pen (Lantus days #60 mL Solostar U-100 Insulin) losartan 100 mg tablet 100 mg PO QAM #90 tabs 02/02/25 02/15/25 Rx atorvastatin 80 mg tablet 80 mg PO DAILY #90 tabs 02/14/25 02/15/25 Rx cholecalciferol (vitamin D3) 125 125 mcg PO DAILY #1 cap 02/14/25 02/15/25 Rx mcg (5,000 unit) capsule sodium zirconium cyclosilicate 10 10 g PO WK #11 ea 02/15/25 02/15/25 Rx gram oral powder packet (Lokelma) insulin pump cart,auto,BT,G6/L #15 ea 02/28/25 Rx (Omnipod 5 (G6/Darnell 2 Plus) subcutaneous cartridge) insulin pump cartridge,auto #1 ea 02/28/25 Rx dose,BT,G6/L2 with controller subcutaneous (Omnipod 5 Intro Kit(G6/Gguox7Cvpy) subcutaneous cartridge) rivaroxaban 2.5 mg tablet (Xarelto) 2.5 mg PO BID #60 tabs 03/04/25 Rx insulin aspart U-100 100 unit/mL 100 unit continuous subcutaneous 03/14/25 Rx subcutaneous solution (Novolog infusion DAILY #30 mL U-100 Insulin aspart) Patient History Medical History Hx of carotid artery stenosis left carotid endarterectomy 07/2023 Dyslipidemia Hypertension History of nephrolithiasis Type 2 diabetes mellitus Osteomyelitis of third toe of right foot History of kidney injury Orchalgia Spermatocele Surgical History Hx of lymph node excision right arm pit, due to swelling- "years ago" History of amputation of toe (09/2024) right third toe Hx of lithotripsy History of total right knee replacement (11/2023) History of carotid endarterectomy (07/2023) 07/2023Lopez History of cardiac cath [facility] many years ago, unsure of date, no stents- follows with dr. wood at [facility] () Family History Aunt Diabetes Uncle Diabetes Social History Smoking Status: Never smoker Tobacco Type: Declines Age Quit Using Tobacco: 30; Second Hand Exposure: No; Do You Dip or Chew Tobacco: No; Tobacco Cessation Education Requested by Patient: No Hx Alcohol Use: No Hx Substance Use: No Preferred Language: Slovenian Communication Ability: Effective Visual Impairment: Limited Hearing Ability: Hard of Hearing Entry Level Buyer Required: No Beliefs That Will Affect Care: None marital status: Current Living Situation: Spouse Other Information That Helps Us Care for You: No Feels Safe at Home: Yes Safety Concerns: Feels Safe At This Time Diet: regular caffeine: Yes Assistive Devices: None Review of Systems Review of Systems: All systems reviewed & are unremarkable except as noted in HPI & below Physical Exam Physical Exam: General: Alert and oriented x 3 in no acute distress. Patient is well nourished and well kept. HEENT: Normocephalic Atraumatic. Inspection normal. Cranial Nerves 2-12 Grossly intact. Nares are clear. Neck is supple. Normal inspection of face. Normal inspection of neck. Neurologic: No deficits on inspection. Baseline for motor function and sensory. Psychologic: Normal affect. Respiratory: Nonlabored. No use of accessory muscles. No tachypnea or dyspnea. Cardiovascular: No tachycardia Skin: [place] and Dry. No rashes or visible lesions. Extremities: Moving without issues. No motor deficits on inspection Lymphatics: No edema Abdomen: Soft Non-distended. No rebound or guarding. Constitutional: no acute distress Respiratory: no respiratory distress and no labored breathing Neurologic: moves all extremities and awake Psychiatric: A+Ox3, euthymic affect Results & Data Vital Signs (Past 12 Hours) Vital Signs Temp Pulse Pulse Resp BP Pulse Ox O2 Del Method 03/25/25 11:46 36.8 C 78 18 196/83 H 96 Room Air 03/25/25 11:08 195/83 H 03/25/25 07:50 36.8 C 78 18 210/85 H 96 Room Air 03/25/25 06:18 74 175/74 H 03/25/25 01:28 36.7 C 79 20 225/105 H 97 Room Air PG Care Time/CCT Total # of Minutes Spent Total Time Spent with Patient: Total time spent is greater than 50% in coordination of care (as documented) at patient's floor/unit and/or counseling patient: Coding Level of Care Code 27772 INT INP/OBS CARE 3/75MIN Diagnoses LANRE (acute kidney injury) N17.9 Right flank pain R10.9 Right ureteral stone N20.1 Hydronephrosis N13.30
--- NOTE | 2025-03-25 14:03 | Anesthesiology Consultation ---
Date of Service March 25, 2025 Assessment & Plan Chart Review Chart Review: Acceptable Risk for Surgery and Patient NOT seen in Pre Admission Testing Consults Requested none ASA ASA3 History Surgery Operation Date: 03/25/25 15:20 Proposed Procedures p Cystoscopy, Right Retrograde Pyelogram, Right Ureteral Stent Placement - Taras Sanchez MD Height/Weight Height: 5 ft 11 in Weight: 92.9 kg Allergies Allergy/AdvReac Type Severity Reaction Status Date / Time latex Allergy Severe Blister Verified 02/15/25 13:30 amoxicillin AdvReac Intermediate Vomiting Verified 02/15/25 13:30 clavulanic acid AdvReac Intermediate Vomiting Verified 02/15/25 13:30 [From Augmentin] Medications Home Medications Medication Instructions Recorded Confirmed Last Taken blood sugar diagnostic (OneTouch 03/03/23 02/15/25 Unknown Ultra Test strips) pen needle, diabetic 31 gauge x 03/03/23 02/15/25 Unknown 5/16" (BD Ultra-Fine Short Pen Needle) carvedilol 25 mg tablet 25 mg PO BID 03/05/23 02/15/25 12/07/24 08:00 blood-glucose sensor (FreeStyle 05/13/23 02/15/25 Unknown Darnell 3 Sensor device) glucagon 1 mg/0.2 mL subcutaneous 1 mg subcut UD PRN prn 05/13/23 02/15/25 Unknown auto-injector aspirin 81 mg chewable tablet 81 mg PO QAM 09/14/24 02/15/25 12/07/24 clopidogrel 75 mg tablet 75 mg PO QPM 10/13/24 02/15/25 12/06/24 amlodipine 10 mg tablet 10 mg PO QAM 11/29/24 02/15/25 12/07/24 acetaminophen 325 mg tablet 650 mg (2 x 325 mg) PO QID pain 12/04/24 02/15/25 12/07/24 12:00 (Tylenol) #120 tabs metformin 1,000 mg tablet 1,000 mg PO BID #60 tabs 12/09/24 02/15/25 Unknown gabapentin 300 mg capsule 600 mg (2 x 300 mg) PO TID #180 12/28/24 02/15/25 Unknown caps cephalexin 500 mg capsule mg PO 01/10/25 02/15/25 Unknown insulin aspart U-100 100 unit/mL 50 unit (0.5 mL) subcut DAILY 90 01/10/25 02/15/25 Unknown (3 mL) subcutaneous pen (Novolog days #45 mL FlexPen U-100 Insulin aspart) insulin glargine 100 unit/mL (3 30 unit (0.3 mL) subcut AMPM 90 01/10/25 02/15/25 Unknown mL) subcutaneous pen (Lantus days #60 mL Solostar U-100 Insulin) losartan 100 mg tablet 100 mg PO QAM #90 tabs 02/02/25 02/15/25 Unknown atorvastatin 80 mg tablet 80 mg PO DAILY #90 tabs 02/14/25 02/15/25 Unknown cholecalciferol (vitamin D3) 125 125 mcg PO DAILY #1 cap 02/14/25 02/15/25 Unknown mcg (5,000 unit) capsule sodium zirconium cyclosilicate 10 10 g PO WK #11 ea 02/15/25 02/15/25 Unknown gram oral powder packet (Lokelma) insulin pump cart,auto,BT,G6/L #15 02/28/25 Unknown (Omnipod 5 (G6/Darnell 2 Plus) subcutaneous cartridge) insulin pump cartridge,auto #1 02/28/25 Unknown dose,BT,G6/L2 with controller subcutaneous (Omnipod 5 Intro Kit(G6/Nujtg9Dvys) subcutaneous cartridge) rivaroxaban 2.5 mg tablet (Xarelto) 2.5 mg PO BID #60 tabs 03/04/25 Unknown insulin aspart U-100 100 unit/mL 100 unit continuous subcutaneous 03/14/25 Unknown subcutaneous solution (Novolog infusion DAILY #30 mL U-100 Insulin aspart) Active Medications Generic Name Dose Route Start Last Admin Trade Name Freq PRN Reason Stop Dose Admin Amlodipine Besylate 10 mg 03/25/25 09:00 03/25/25 08:16 Amlodipine Besylate 5 Mg Tab PO 04/24/25 08:59 10 mg QAM [facility] Administration Atorvastatin Calcium 80 mg 03/25/25 09:00 03/25/25 08:05 Atorvastatin 40 Mg Tab PO 04/24/25 08:59 Not Given DAILY [facility] Carvedilol 25 mg 03/25/25 01:28 03/25/25 08:18 Carvedilol 25 Mg Tab PO 04/24/25 01:27 Not Given BID ILEANA Gabapentin 600 mg 03/25/25 09:00 03/25/25 13:25 Gabapentin 300 Mg Cap PO 04/24/25 08:59 Not Given TID ILEANA Hydromorphone HCl 0.5 mg 03/25/25 01:28 03/25/25 01:57 Hydromorphone Inj 0.5 Mg/0.5 Ml Syr IV 04/08/25 01:27 0.5 mg Q4H PRN Administration Moderate Pain (Scale 4, 5, 6) Hydromorphone HCl 1 mg 03/25/25 01:28 03/25/25 08:20 Hydromorphone Inj 1 Mg/Ml Syringe IV 04/08/25 01:27 1 mg Q4H PRN Administration Severe Pain (Scale 7, 8, 9,10) Insulin Aspart 0 units 03/25/25 12:15 03/25/25 12:26 Insulin Aspart Per Unit Charge SC 04/24/25 11:29 Not Given Q6 ILEANA Past Medical History Medical History Hx of carotid artery stenosis left carotid endarterectomy 07/2023 Dyslipidemia Hypertension History of nephrolithiasis Type 2 diabetes mellitus Osteomyelitis of third toe of right foot History of kidney injury Orchalgia Spermatocele CKD Exercise / Class Metabolic Activity III < 4 Walking/Shop/Light housework Past Family History Family History Aunt Diabetes Uncle Diabetes Past Surgical History Surgical History Hx of lymph node excision right arm pit, due to swelling- "years ago" History of amputation of toe (09/2024) right third toe Hx of lithotripsy History of total right knee replacement (11/2023) History of carotid endarterectomy (07/2023) 07/2023, Lopez Yousif History of cardiac cath [facility] many years ago, unsure of date, no stents- follows with dr. wood at [facility] () Past Anesthesia History No Hx of Anesthesia Complications and No Family Hx of Anesthesia Complications History of PONV No Hx of PONV and No Hx of Motion Sickness Social History Smoking Status: Never smoker Do You Dip or Chew Tobacco: No Hx Alcohol Use: No Hx Substance Use: No substance use type: does not use Physical Exam Vital Signs Last Vital Signs Temp 36.8 C 03/25/25 11:46 Pulse 78 03/25/25 11:46 Resp 18 03/25/25 11:46 BP 196/83 H 03/25/25 11:46 Pulse Ox 96 03/25/25 11:46 O2 Del Method Room Air 03/25/25 11:46 Testing Laboratory Results 03/25/25 07:11 03/25/25 07:11 Urine Color Yellow 03/24/25 19:48 Urine Appearance Clear (Clear) 03/24/25 19:48 Urine pH 5.0 (4.5-7.5) 03/24/25 19:48 Ur Specific [place] 1.021 (1.000-1.030) 03/24/25 19:48 Urine Protein 2+ (Negative) H 03/24/25 19:48 Urine Glucose (UA) 3+ (Negative) H 03/24/25 19:48 Urine Ketones Negative (Negative) 03/24/25 19:48 Urine Nitrite Negative (Negative) 03/24/25 19:48 Ur Leukocyte Esterase Negative (Negative) 03/24/25 19:48 Urine WBC (Auto) 0-5 /hpf (0-5) 03/24/25 19:48 Urine RBC (Auto) 0-2 /hpf (0-2) 03/24/25 19:48 U Hyaline Cast (Auto) 0-2 /lpf (0-2) 03/24/25 19:48 U Epithel Cells (Auto) 0-2 /hpf (0-2) 03/24/25 19:48 Urine Bacteria (Auto) None Seen (None Seen) 03/24/25 19:48 03/25/25 03/25/25 12:00 06:03 POC Glucose 87 78 Electrocardiogram Date: 11/05/23 Findings: + NSR @ (@ 64;NS ST abnl) and + NSST changes Echocardiogram Date: 03/26/23 EF: 55% LV Function: normal RWMA: + none Other Findings: + diastolic dysfunction (Grade 1) TR-mild
[2025-03-25] MEDS: LACTATED RINGER'S 1,000 ML IV SCH (14:24)
[2025-03-25] MEDS ORDERED: MIDAZOLAM HCL 1 MG/ML 2ML VIAL ONE (14:30)
[2025-03-25] MEDS ORDERED: HYDROmorphone INJ 1 MG/ML SYRINGE IV PRN (14:38)
[2025-03-25] MEDS ORDERED: ATROPINE SULFATE 0.1 MG/ML 10ML SYR IV PRN (14:38)
--- NOTE | 2025-03-25 15:33 | Operative Report ---
PG Post Operative Report Pre & Post Diagnosis Operation Date: 03/25/25 15:20 Pre-Op Diagnosis: Right ureteral calculus Post-Op Diagnosis: Right ureteral calculus I identified the patient and participated in the time-out.: Yes Procedure Operation Date: 03/25/25 15:20 Actual Procedures p Cystoscopy with Right ureteroscopy, Right urine aspiration, Right Retrograde Pyelogram, Right Ureteral Stent Placement, and Right Ureteral Dilation(Right) - Sergio Chávez, Surgeon Sergio Chávez, II, DO Group Controller None Estimated Blood Loss 1 Findings Consistent with Post-Op Diagnosis Severe narrowing of the distal ureter with stone likely impacted proximal. Stone was able to be displaced and stricture dilated. Wire was then able to advance. Significant dark urine was expressed after stone displacement. Urine was aspirated and sent for culture Specimens Urine for culture right kidney Drains 6 Fr by 26 cm right Anesthesia Type General Complications none Disposition Disposition: Recovery Room Indications Patient with bothersome stones. Risks and benefits discussed at length. Description of Procedure Patient was consented and brought back to the operating room. Patient was placed under anesthesia in the supine position and moved to the dorsal lithotomy position. Patient was prepped and draped in the regular sterile fashion. A time out was completed. A 30degree Cystoscope was placed into the bladder and the entire bladder was examined. The UO's were identified. The UO was cannulized with a catheter and a retrograde pyelogram was completed. A wire was then placed. Significant narrowing was noted in the distal ureter. The wire was able to advance but took considerable manipulation to bypassed the area of significant obstruction. The Rigid ureteroscope was taken into the ureter. The stone was identified and appeared to be impacted in an area of significant stricture of the distal ureter. The wire did appear to be going around the impacted stone. The stone was able to be slightly displaced and the area of stricture was dilated. After the dilation significantly darkened and cloudy urine was appreciated. The scope was slowly removed and the wire maintained. The 5 [place] open-ended catheter was placed over top of the wire and into the renal pelvis. Urine was aspirated from the renal pelvis it was once again dark and cloudy. This was sent for culture. A retrograde pyelogram was then completed utilizing contrast. The collecting system was better able to be appreciated with this injection as the catheter was not located within the renal pelvis. The wire was replaced. With the wire in place, a 6 Fr Double J stent was placed. It was confirmed with fluoroscopy. With the stent in place, the bladder was emptied. The scope was removed. The patient was cleaned, aroused from anesthesia, and transferred to the pacu in stable condition having tolerated the procedure well with no complications. I was present and participated in all aspects of the procedure. The patient will be monitored in the PACU until transferred. Plan to maintain stent for approximately 1 to 2 weeks with plans to set up for stone treatment. Numerous stones within the ureter and significant obstruction I attest to the content of the Intraoperative Record and any orders documented therein. Any exceptions are noted below.
--- NOTE | 2025-03-25 16:18 | Anesthesiology Progress Note ---
Date of Service March 25, 2025 Anesthesia Post Procedure Vital Signs Vital Signs: Temp Pulse Pulse Pulse Resp BP BP 03/25/25 15:52 36.5 C 87 18 157/64 H 03/25/25 15:45 86 16 162/71 H 03/25/25 15:35 85 13 154/68 H 03/25/25 15:28 36.7 C 85 12 156/68 H 03/25/25 14:40 87 205/86 H 03/25/25 14:32 84 190/83 H 03/25/25 14:08 36.8 C 86 16 226/88 H 03/25/25 11:46 36.8 C 78 18 196/83 H 03/25/25 11:08 195/83 H 03/25/25 07:50 36.8 C 78 18 210/85 H 03/25/25 06:18 74 175/74 H 03/25/25 01:28 36.7 C 79 20 225/105 H 03/25/25 01:18 36.7 C 79 20 225/105 H 03/25/25 01:18 36.7 C 79 20 225/105 H 03/25/25 00:30 72 18 185/96 H 03/24/25 22:00 76 22 195/76 H 03/24/25 21:21 83 20 230/99 H 03/24/25 20:49 86 03/24/25 19:38 36.7 C 90 18 234/105 H Pulse Ox O2 Del Method O2 Flow Rate 03/25/25 15:52 95 Room Air 03/25/25 15:45 94 Room Air 03/25/25 15:35 98 Oxymask 3 03/25/25 15:28 96 Oxymask 5 03/25/25 14:40 03/25/25 14:32 03/25/25 14:08 97 Room Air 03/25/25 11:46 96 Room Air 03/25/25 11:08 03/25/25 07:50 96 Room Air 03/25/25 06:18 03/25/25 01:28 97 Room Air 03/25/25 01:18 97 Room Air 03/25/25 01:18 97 Room Air 03/25/25 00:30 97 Room Air 03/24/25 22:00 97 03/24/25 21:21 03/24/25 20:49 03/24/25 19:38 94 Room Air Pain Intensity Right Flank: Pain Intensity: 4 Transfer of Care Handoff Completed per policy Notes Mental Status: alert / awake / arousable and participated in evaluation Patient Amnestic to Procedure: Yes Nausea / Vomiting: adequately controlled Pain: adequately controlled Airway Patency, RR, SpO2: stable & adequate BP & HR: stable & adequate Hydration State: stable & adequate Anesthetic Complications: no major complications apparent and Pt Satisfied with anesthetic care
[2025-03-25] MEDS: MELATONIN 3 MG TAB PO PRN (21:18)
[2025-03-25] MEDS: LANTUS PER UNIT CHARGE SC SCH (21:18)
[2025-03-25] MEDS: TAMSULOSIN HCL 0.4 MG CAP PO SCH (21:20)
[2025-03-25 23:06] VITALS: RESP 18
[2025-03-26 07:20] LABS: Hematocrit (blood only) 30.9 % (42.0-52.0); Hemoglobin 10.0 g/dl (14.0-18.0); Mean Corpuscular Hemoglobin 29.9 pg (25.0-34.0); Mean Corpuscular Volume 92.2 fL (80.0-100.0); Platelet Count 272 K/uL (130-400); RDW Standard Deviation 47.7 fL (36.4-46.3); Red Blood Count 3.35 M/uL (4.70-6.10); White Blood Count 8.98 K/ul (4.8-10.8)
--- NOTE | 2025-03-26 07:28 | Fluoroscopy Report ---
INTRAOPERATIVE RADIOGRAPHS CLINICAL HISTORY: Right ureteral stent placement. Fluoro time: 27 seconds Ka,r: 8.36 mGy FINDINGS: 4 spot fluoroscopic views of the right abdomen are correlated with abdominal CT dated 2024. On the initial image a wire projects over the right renal pelvis. Contrast within the right zoe al collecting system shows hydronephrosis. The final images show the proximal and distal ends of a ri ght renal stent in appropriate position. IMPRESSION: Intraoperative images from a right ureteral stent placement procedure. Electronically signed by: Bairon Booker M.D. 03/26/2025 7:27 AM
[2025-03-26 07:40] LABS: Anion Gap 9.0 (3-11); Blood Urea Nitrogen 28.0 mg/dl (6-23); Calcium 8.6 mg/dl (8.6-10.3); Carbon Dioxide 22.0 mmol/L (21-32); Chloride 106.0 mmol/L (98-107); Creatinine Clr Calc Pharmacy 37.8 ml/min; Glucose 131.0 mg/dl (70-99(Fasting)); Potassium 4.9 mmol/L (3.5-5.1); Sodium 137.0 mmol/L (136-145)
[2025-03-26 08:42] VITALS: BP 159/71; TEMP 97.9; O2SAT 94
--- NOTE | 2025-03-26 09:14 | Discharge Summary ---
Discharge Summary Date of Service March 26, 2025 Principal Dx & Hospital Course #1 = Principal Diagnosis (1) LANRE (acute kidney injury): (2) Calculus of proximal right ureter: (3) Right flank pain: (4) Chronic kidney disease, stage 3b: (5) Poorly-controlled hypertension: (6) Type 2 diabetes mellitus: Plan 69 yo male PMHX CKD-III, T2DM w/peripheral neuropathy on insulin, PAD, HTN, OA, HLD admitted for R renal/ureteral calculus identified at his PCP/outside imaging with [facility]. #Renal/Ureteral Calculi CTAP: mild right hydronephrosis secondary to multiple stones or an irregular ovoid stone measured 1x10mm in mid to distal ureter. Similar appearing stone non-obstructing in right kidney. UA negative for infection - defer further abx. CBC w/o leukocytosis. Urology consulted - s/p cystoscopy w/ stent placement by Dr. Chávez 03/25. will require urology follow up for stent removal in outpatient setting. Pain control w/ Tylenol --> reported no pain AM of discharge therefore no narcotics sent. Continue Flomax. #LANRE on CKD-III Suspect post-renal in the setting of calculi and hydronephrosis Creatinine 2.88 on admission - improvement to 2.09 #HTN - poorly controlled Hydralazine 10mg IV q6h BP > 180 systolic Continue carvedilol, amlodipine Resume Losartan on discharge. #T2DM w/peripheral neuropathy Hold home meds Pharmacy glycemic consult Continue gabapentin #HLD Continue atorvastatin Discharged home 03/26. Admission HPI Per Admitting Provider 69 yo male PMHX CKD-III, T2DM w/peripheral neuropathy on insulin, PAD, HTN, OA, HLD admitted for R renal/ureteral calculus identified at his PCP/outside imaging with [facility]. Initially, the pts PCP was going to try to have him see [place] urology on 03/25/25 as an outpatient but this was unable to be arranged and it was suggested that the patient present to the ER for evaluation. The patient has had significant R flank pain. Denies fevers, chills, CP, SOB, N/V/D. ED course: CT reveals 1. Mild right hydronephrosis secondary to multiple stones or an irregular ovoid stone, measured together at 1 x 10 mm in the mid to distal ureter. 2. Similar appearing stone or stones non-obstructing in the right kidne y. 3. Small wall wall thickening may be artifact from underdistention, enteritis not excluded in the setting, correlate clinically. 4. Diverticulosis without acute diverticulitis Labs reveal: mild leukocytosis, mild hyponatremia, significantly increased creatinine, urine does not appear infected Recieved: NSS 1.5L bolus, Tylenol 1g IV Discharge Exam Constitutional WD/WN, vitals as above Eyes PERRL, conjunctivae normal, anicteric sclerae Respiratory normal respiratory effort Skin no rashes, warm and dry Neurologic PERRL, EOMI, accommodation nl, no face palsy, no dysarthria Psychiatric A+Ox3, euthymic affect Discharge Plan Discharge Items Patient Disposition: Home - Self-Care Reason For Visit: R URETERAL CALCULUS Discharge Diagnosis: Right ureteral stone Condition on Discharge: Good Activity: Resume your previous activity Non-emergency contact: Primary Care Provider and Urologist Call non-emergency contact if: you have any medication questions, your symptoms worsen and you have a fever Follow-up/Referrals: Greg Garvey MD [Physician] - Elisabet Stevenson PA-C [Primary Care Provider] - Diet: Carb Consistent or DM2 and Heart Healthy Addtl Attending Provider Instructions: Mr. Dwyer, You were recently hospitalized for ongoing right flank pain secondary to a kidney stone. You underwent a procedure with Dr. Chávez on 03/25 for a stent placement in your right ureter. Following this you did have relief of your pain. Upon discharge: Please take Flomax 0.4mg once daily to help facilitate urine passage. Please follow up with urology on an outpatient basis. - their phone number is above if you have questions/concerns regarding your stent. Please follow up with your PCP within 1-2 weeks of discharge. You may resume your outpatient medications. Best of luck! Stefania Driver PA-C Pending Studies at Discharge: No Stand-Alone Forms: [employer], Smoking Cessation Medications and AR Order Prescriptions: New tamsulosin 0.4 mg Capsule 0.4 mg PO HS Qty: 30 0RF Continued metformin 1,000 mg tablet 1,000 mg PO BID Qty: 60 5RF gabapentin 300 mg capsule 600 mg PO TID Qty: 180 5RF losartan 100 mg tablet 100 mg PO QAM Qty: 90 3RF atorvastatin 80 mg tablet 80 mg PO DAILY Qty: 90 3RF cholecalciferol (vitamin D3) 125 mcg (5,000 unit) capsule 125 mcg PO DAILY Qty: 1 0RF rivaroxaban [Xarelto] 2.5 mg tablet 2.5 mg PO BID Qty: 60 3RF insulin aspart U-100 [Novolog U-100 Insulin aspart] 100 unit/mL solution 100 unit continuous subcutaneous infusion DAILY Qty: 30 5RF glucagon 1 mg/0.2 mL auto-injector 1 mg subcut UD PRN (Reason: prn) carvedilol 25 mg tablet 25 mg PO BID Rx Instructions: must administer with a meal/food clopidogrel 75 mg tablet 75 mg PO QPM Lokelma 10 gram powder in packet 10 g PO WK Qty: 11 6RF Rx Instructions: twice a week insulin glargine [Lantus Solostar U-100 Insulin] 100 unit/mL (3 mL) insulin pen 30 unit subcut AMPM 90 Days Qty: 60 3RF Rx Instructions: Take 30 units in the AM and 30 units in the PM insulin aspart U-100 [Novolog FlexPen U-100 Insulin] 100 unit/mL (3 mL) insulin pen 50 unit subcut DAILY MDD 50 UNITS 90 Days Qty: 45 0RF Rx Instructions: SLIDING SCALE...TAKE 8 UNITS WITH BREAKFAST, 14 UNITS WITH LUNCH, & 16 UNITS WITH SUPPER. aspirin 81 mg Tablet,Chewable 81 mg PO QAM Rx Instructions: takes a couple times a week when he thinks about it amlodipine 10 mg tablet 10 mg PO QAM acetaminophen [Tylenol] 325 mg tablet 650 mg PO QID Qty: 120 0RF Discontinued cephalexin 500 mg capsule PO No Action (DME) Omnipod 5 Intro(G6/Ysder8Zerv) Cartridge See Rx Instructions .ROUTE .MEDSUPPLY Qty: 1 0RF Rx Instructions: change pods every 2 days (DME) Omnipod 5 (G6/Darnell 2 Plus) Cartridge See Rx Instructions .ROUTE .MEDSUPPLY Qty: 15 11RF Rx Instructions: change pods every 2 days (DME) FreeStyle Darnell 3 Sensor Device See Rx Instructions .Route Rx Instructions: change every 14 days (DME) pen needle, diabetic [BD Ultra-Fine Short Pen Needle] 31 gauge x 5/16" needle See Rx Instructions .Route Rx Instructions: Inject insulin daily (DME) OneTouch Ultra Test Strip See Rx Instructions .Route Rx Instructions: Test blood sugar two times daily Discharge Orders: Discharge Order (Routine); Ordered 03/26/25 Ordered By: Stefania Alvarez/Other Patient Handouts: Managing Type 2 Diabetes, Special Foot Care for Diabetes Admission Data Admit Date/Time: 03/24/25 23:29 Attending Provider: Andriy Riley Admit Provider: Raad Walker Primary Care Provider: Elisabet Stevenson Other Providers: [employer]; Maryam Sanchez; Greg Garvey Other Interventions: Discharge Summary Assessment (RN) Last Done: 03/26/25 09:31 Hospital Stay Data Consultations 03/24/25 22:35 ED Decision to Admit Stat 03/25/25 01:28 Consult Urology Routine Procedures Performed Operation Date: 03/25/25 15:20 Actual Procedures p Cystoscopy, Right Retrograde Pyelogram, Right Ureteral Stent Placement, Right Ureteral Dilation(Right) - Sergio Chávez, DO Diagnostic Imagining Performed 03/24/25 19:56 CT abd pelvis wo con Stat 03/25/25 [place] retrograde includes kub Routine Pending Results Patient Have Any Pending Studies at Discharge: No Discharge Instructions Given to Patient (Per Discharging Provider) Mr. Dwyer, Javier were recently hospitalized for ongoing right flank pain secondary to a kidney stone. You underwent a procedure with Dr. Chávez on 03/25 for a stent placement in your right ureter. Following this you did have relief of your pain. Upon discharge: Please take Flomax 0.4mg once daily to help facilitate urine passage. Please follow up with urology on an outpatient basis. - their phone number is above if you have questions/concerns regarding your stent. Please follow up with your PCP within 1-2 weeks of discharge. You may resume your outpatient medications. Best of luck! Stefania Driver PA-C Supervising Physician Co-Signing Physician Notes The patient was not seen by me. The chart was reviewed. Case discussed with JAYSHREE Vieira. Agree with assessment and plan Total Time Total Time Spent Total Time Spent (In Minutes): 45 Total Time Includes: Examination of the Patient, Discharge Planning, Medication Reconciliation, Communication With Other Providers and Other Coding Level of Care Code 46479 INP/OBS DISCH >30 MIN Diagnoses LANRE (acute kidney injury) N17.9 Calculus of proximal right ureter N20.1 Right flank pain R10.9 Chronic kidney disease, stage 3b N18.32 Poorly-controlled hypertension I10 Type 2 diabetes mellitus with diabetic mononeuropathy, with long-term current use of insulin E11.41; Z79.4 Diabetes mellitus complication detail: with mononeuropathy Diabetes mellitus complication status: with neurologic complications Diabetes mellitus terminologist insulin use: with terminologist use
[2025-03-26 09:33] VITALS: PULSE 88
== END 2025-03-26 11:39 | disposition home health service (06) | DRG 661 ==
LOC: ED 19:35 → 3N 23:29 → SUATTDRO 23:29 → 3N 03-25 01:09